=== PATIENT | male | born 1945 | race Caucasian/White ===

== ENCOUNTER → 2016-09-23 14:53 | Outpatient (CLI) | payer MEDICARE ==
[2010-04-09 11:32] VITALS: BMI 32.6
== END | disposition home or self-care (01) ==
LOC: D.CT 14:53
DX: R09.89 Other specified symptoms and signs involving the circulatory and respiratory systems (principal)

== ENCOUNTER 2017-03-27 10:33 | Outpatient (CLI) | payer MEDICARE ==
[~2017-03-27] VITALS: Ht 179.1 cm; Wt 109.5 kg
--- NOTE | ~2017-03-27 | HEMODYNAMI ---
PATIENT:ISIS VALE MEDICAL RECORD: [id number] : 41 LOCATION:[facility] ADMISSION DATE: 03/27/17 Generatedon:03/27/201714:17 Patient name: ISIS VALE Patient #: [id number] SSN: : 1945 Date of study: 03/27/2017 Page: Of Hemodynamic Procedure Report Patient Data Patient Demographics Procedure consent was obtained First Name: ISIS Gender: Male Last Name: KAVIN : 1945 [facility] Initial: AARON Age: 72 year(s) Patient #: [id number] Race: Unknown Additional ID: [id number] Contact details Address: [address] [place] [address] State: [place] City: [facility] Zip code: [address] Admission Admission Data Admission Date: 03/27/2017 Admission Time: 10:33 Lab Results Lab Result Date: 03/27/2017 Lab Result Time: 0:00 Biochemistry Name Units Result Min Max BUN mg/dl 19 --(----)*- 7 18 Creatinine mg/dl 1.3 --(---*)-- 0.6 1.3 CBC Name Units Result Min Max Hemoglobin g/dl 15.2 --(-*--)-- 13.5 17.5 Procedure Procedure Types Cath Procedure Diagnostic Procedure LHC C w/Coronaries w/Grafts PCI Procedure PTCA PTCA Initial Miscellaneous Procedures Moderate Sedation up to 45 minutes Procedure Description Procedure Date Procedure Date: 03/27/2017 Procedure Start Time: 13:07 Procedure End Time: 14:13 Procedure Staff Name Function Maxwell Jewell RT Monitor Braulio Altamirano MD Performing Physician Waqas Roberts RN Nurse Linda Merlos RT Scrub Procedure Data Cath Procedure Fluoroscopy Diagnostic fluoroscopy Total fluoroscopy Time: time: 19.4 min 19.4 min Diagnostic fluoroscopy Total fluoroscopy dose: dose: 3332 mGy 3332 mGy Contrast Material Contrast Material Type Amount (ml) Isovue 300 216 Entry Location Entry Primary Successful Side Size Upsize Upsize Entry Closure Succes sful Closure Location (Fr) 1 (Fr) 2 (Fr) Remarks Device Remarks Femoral Right 5 Fr 6 Fr Exoseal artery Short Estimated blood loss: 10 ml Diagnostic catheters Device Type Used For End Catheter Placement MULTIPACK JL 4.0 5Fr Procedure catheter MULTIPACK 3DRC 5Fr Procedure catheter MULTIPACK Pigtail 5 Fr Procedure catheter Procedure Complications No complications Procedure Medications Medication Administration Route Dosage 0.9% NaCl I.V. 100 ml/hr Oxygen NC 2 l/min Heparin Flush Bag added to field 2 bags (1000units/500ml NS) Lidocaine 2% added to field 20 Versed I.V. 1 mg Fentanyl I.V. 50 mcg Benadryl I.V. 50 mg Heparin Bolus I.V. 5000 units Integrilin (Bolus I.V. 10.2 ml 2mg/ml) Integrilin (Bolus wasted 9.8 ml 2mg/ml) Versed I.V. 1 mg Fentanyl I.V. 50 mcg Hemodynamics Rest HGB: 15.2 (g/dl) Heart Rate: 65 (bpm) Pressure Samples Time Site Value (mmHg) Purpose Heart Use Rate(bpm) 13:15 LV 168/21,38 Snapshot 64 13:16 AO 164/74(112) Pullback 64 13:29 AO 155/77(108) Snapshot 64 Gradients Valve Time Site Site 2 Mean SEP/DFP Peak To Heart Use 1 (mmHg) (sec/min) Peak Rate (mmHg) (bpm) Aortic 13:16 LV AO 6 19 64 164/74(112) Calculations Valve P-P Mean Valve Index Valve Source Name Gradient Area Flow (cm2) Aortic 6 6 Snapshots Pre Cath Intra NCS Post Cath Vital Signs Time Heart Resp SPO2 etCO2 NIBP (mmHg) Rhythm Pain Sedation Rate (ipm) (%) (mmHg) Status Level (bpm) 12:55:58 61 13 96 0 173/83(135) NSR 0 (11) 10(A) , No pain 13:00:51 63 16 98 34.5 161/82(117) NSR 0 (11) 10(A) , No pain 13:05:40 62 15 99 38.3 156/74(123) NSR 0 (11) 10(A) , No pain 13:10:31 62 13 100 19.5 166/80(121) NSR 0 (11) 9(A) , No pain 13:15:21 63 13 99 36 163/75(112) NSR 0 (11) 9(A) , No pain 13:20:12 63 14 100 33.8 160/75(131) NSR 0 (11) 9(A) , No pain 13:25:01 64 13 100 36 159/82(130) NSR 0 (11) 9(A) , No pain 13:29:54 64 13 99 0 157/79(124) NSR 0 (11) 9(A) , No pain 13:34:45 61 21 99 0 160/79(126) NSR 0 (11) 9(A) , No pain 13:39:38 60 15 99 36.8 159/78(129) NSR 0 (11) 9(A) , No pain 13:44:29 60 14 99 36.8 166/75(120) NSR 0 (11) 9(A) , No pain 13:49:19 60 15 99 36.8 162/82(125) NSR 0 (11) 9(A) , No pain 13:54:13 62 12 99 27 168/79(133) NSR 0 (11) 10(A) , No pain 13:59:03 60 12 99 33.8 165/80(136) NSR 0 (11) 10(A) , No pain 14:03:54 64 11 100 36.8 171/85(142) NSR 0 (11) 10(A) , No pain 14:08:39 65 15 99 37.6 155/87(132) NSR 0 (11) 10(A) , No pain Medications Time Medication Route Dose Verified Delivered Reason Notes Effectiveness by by 12:54:08 0.9% NaCl I.V. 100 Waqas Waqas Per physician ml/hr Armando Roberts RN RN 12:54:23 Oxygen NC 2 Waqas Waqas Per physician l/min Armando Roberts RN RN 12:54:37 Heparin Flush added 2 Waqas Waqas used for Bag to bags Armando Roberts procedure (1000units/500ml field ERLINDA COFFEY NS) 12:54:48 Lidocaine 2% added 20ml Waqas Waqas for local to vial Armando Roberts anesthetic field ERLINDA COFFEY 12:59:50 Versed I.V. 1 mg Waqas Waqas for sedation Armando Roberts RN RN 13:00:02 Fentanyl I.V. 50 Waqas Waqas for sedation mcg Armando Roberts RN RN 13:00:12 Benadryl I.V. 50 mg Waqas Waqas Per physician Armando Roberts RN RN 13:21:35 Heparin Bolus I.V. 5000 Waqas Waqas for units Armando Roberts anticoagulation RN RN 13:21:53 Integrilin I.V. 10.2 Waqas Waqas for (Bolus 2mg/ml) ml Armando Roberts antiplatelet RN RN therapy 13:22:13 Integrilin wasted 9.8 Waqas Waqas to sharp's (Bolus 2mg/ml) ml Armando Roberts RN RN 13:23:33 Versed I.V. 1 mg Waqas Waqas for sedation Armando Roberts RN, RN 13:23:40 Fentanyl I.V. 50 Waqas Waqas for sedation mcg Armando Roberts RN circular shear operator Log Time Note 12:19:37 Time tracking: Regular hours 12:19:46 Plan of Care:Hemodynamics will remain stable., Cardiac rhythm will remain stable., Comfort level will be maintained., Respiratory function will remain adequate., Patient/ family verbilizes understanding of procedure., Procedure tolerated without complication., Recovers from procedure without complications.. 12:19:50 Signed procedure consent form obtained from patient. 12:20:05 H&P Date Dictated: 03/24/2017 Within 30 days and on chart., H&P Addendum completed by physician on day of procedure. (MUST COMPLETE FOR ALL OUTPATIENTS). 12:20:37 Lab Result : Hemoglobin 15.2 g/dl 12:20:37 Lab Result : Creatinine 1.3 mg/dl 12:20:37 Lab Result : BUN 19 mg/dl 12:38:02 Waqas Roberts RN sent for patient. Start room use. 12:43:16 Patient received from Pre/Post Procedure Room to CCL 1 Alert and oriented. Tansferred to table in Supine position. 12:43:18 Warm blankets applied, and lg hugger turned on for patient comfort. 12:43:19 Correct patient and procedure confirmed by team. 12:43:21 ECG and BP/O2 sat monitors applied to patient. 12:54:08 0.9% NaCl 100 ml/hr I.V. was administered by Waqas Lorigan RN; Per physician; 12:54:23 Oxygen 2 l/min NC was administered by Waqas Roberts RN; Per physician; 12:54:37 Heparin Flush Bag (1000units/500ml NS) 2 bags added to field was administered by Waqas Roberts RN; used for procedure; 12:54:48 Lidocaine 2% 20ml vial added to field was administered by Waqas Roberts RN; for local anesthetic; 12:54:53 Vital chart was started 12:55:41 Baseline sample Acquired. 12:55:48 Rhythm: sinus rhythm 12:55:51 Full Disclosure recording started 12:55:53 Pre-op teaching completed and patient verbalized understanding. 12:55:53 Pre-procedure instructions explained to patient. 12:55:58 Family in patients room. 12:55:59 Patient NPO since Midnight. 12:56:01 Is the patient allergic to Iodine/contrast media? No. 12:56:04 Is patient on blood thinner?Yes 12:56:07 ACC The patient was administered the following blood thiners within the last 24 hours: ACCPlavix 12:57:19 Previous problem with sedation/anesthesia? No ? 12:57:20 Snore? Yes 12:57:22 Sleep apnea? No 12:57:23 Opens mouth fully? Yes 12:57:23 Deviated septum? No 12:57:28 Patient diabetic? Yes. 12:57:29 If diabetic: On Metformin? Yes 12:57:34 If on Metformin: Last Dose? 03/26/2017 12:57:38 Sticks out tongue? Yes 12:57:40 Airway obstruction? No ? 12:57:43 Dentures? No ? 12:57:46 Pre procedure: right dorsailis pedis pulse 1+ Palpable, but thready & weak; easily obliterated 12:57:48 Patient pain scale 0/10 ?. 12:58:08 IV patent on arrival in left forearm with 0.9% NaCl at [facility]. 12:58:10 Lab results completed and on chart. 12:58:14 Right groin area was prepped with chlora-prep and draped in sterile fashion 12:58:16 Alarms reviewed by R. N. 12:58:17 Sharps counted by scrub and verified by R.N. 12:58:38 Use device set Femoral Dx 12:58:40 Tegaderm 4 x 4 (1626W) opened to sterile field. 12:58:41 ACIST Manifold (62480) opened to sterile field. 12:58:41 ACIST Hand Control (11158) opened to sterile field. 12:58:43 Bag Decanter (2002S) opened to sterile field. 12:58:43 ACIST Syringe (47890) opened to sterile field. 12:58:44 SHEATH 5FR [place] (ASB737) opened to sterile field. 12:58:44 Medline Cath Pack ([id number]) opened to sterile field. 12:58:45 DIAGNOSTIC WIRE .035 260cm J wire (093315) opened to sterile field. 12:58:46 DIAGNOSTIC Multipack 5Fr catheter set (GZ2883) opened to sterile field. 12:58:48 PERCUTANEOUS ENTRY 19GA needle opened to sterile field. 12:59:01 Final Timeout: patient, procedure, and site verified with staff and physician. All members of the team are in agreement. 12:59:01 --------ALL STOP TIME OUT------ 12:59:04 Right groin site verified by team. 12:59:06 Physical assessment completed. ASA score P 2 - A patient with mild systemic disease as per Braulio Altamirano MD. 12:59:08 Sedation plan: IV Moderate Sedation Medication:Versed, Fentanyl 12:59:50 Versed 1 mg I.V. was administered by Waqas Roberts RN; for sedation; 13:00:02 Fentanyl 50 mcg I.V. was administered by Waqas Roberts RN; for sedation; 13:00:12 Benadryl 50 mg I.V. was administered by Waqas Roberts RN; Per physician; 13:06:56 Procedure started. 13:07:05 Local anesthetic to right femoral artery with Lidocaine 2% by Braulio Altamirano MD.INITIAL ACCESS ONLY 13:08:01 A 5 Fr sheath was inserted into the Right Femoral artery 13:09:06 A MULTIPACK JL 4.0 5Fr catheter was advanced over the wire and used for Procedure. 13:09:39 LCA angiography performed. 13:11:23 Catheter removed. 13:11:29 A MULTIPACK 3DRC 5Fr catheter was advanced over the wire and used for Procedure. 13:12:16 RCA angiography performed. 13:13:11 SVG to Diag angiography performed. 13:13:44 HANSEN to LAD angiography performed. 13:14:14 SVG to Circ occluded. 13:14:16 Catheter removed. 13:14:21 A MULTIPACK Pigtail 5 Fr catheter was advanced over the wire and used for Procedure. 13:15:35 LV angiography performed. 13:15:36 LV gram done using YOUNG 13:15:48 EF : 40 % 13:15:53 LV hemodynamics recorded. 13:15:57 Injector settings: Ml/sec: 10, Volume: 20, 13:15:58 Catheter removed. 13:16:05 Use device set Flock PCI 13:16:12 INFLATOR Merit BasixCompak (BJ0213) opened to sterile field. 13:16:14 SHEATH 6FR [place] (ZDR076) opened to sterile field. 13:16:19 WHISPER 300cm guide wire ([id number]) opened to sterile field. 13:16:26 GUIDE 6FR EBU 3.5 catheter ([id number]) opened to sterile field. 13:17:14 Sheath upsized to a 6 Fr Short. 13:17:26 Study PCI Site: [place] mCirc has 90% stenosis. 13:17:28 ACC Pre-intervention IDANIA Flow is 3. 13:18:37 6 Fr EBU 3.5 guide catheter was inserted over the wire 13:20:03 Whisper wire advanced. 13:21:35 Heparin Bolus 5000 units I.V. was administered by Waqas Roberts RN; for anticoagulation; 13:21:53 Integrilin (Bolus 2mg/ml) 10.2 ml I.V. was administered by Waqas Roberts RN; for antiplatelet therapy; 13:22:13 Integrilin (Bolus 2mg/ml) 9.8 ml wasted was administered by Waqas Roberts RN; to sharp's; 13:22:17 Wire advanced across lesion. 13:23:33 Versed 1 mg I.V. was administered by Waqas Roberts RN; for sedation; 13:23:40 Fentanyl 50 mcg I.V. was administered by Waqas Roberts RN; for sedation; 13:25:03 The EUPHORA 3.0 x 15 Balloon ([id number]) was advanced and then removed because of failure to cross lesion 13:28:36 [place]undy 1.5x15 balloon advanced across lesion. Wire exchanged for Choice PT XS. 13:28:47 CHOICE PT Extra Support J 300cm guide wire ([id number]) opened to sterile field. 13:29:09 Inflation number: 1 A MAVERICK 1.5 X 15 balloon ([id number]) was prepped and advanced across the Mid CX, then inflated to 10 DONI for 0:10 (min:sec). 13:29:37 Multiple inflations made at 10 Atms. 13:31:58 Multiple inflations made at 14 Atms. 13:33:02 Balloon removed over the wire. 13:37:23 The EUPHORA 3.0 x 15 Balloon ([id number]) was advanced and then removed because of failure to cross lesion 13:42:50 The EMERGE OTW 2.5 x 15 balloon ([id number]) was advanced and then removed because of failure to cross lesion 13:42:52 Guide catheter removed. 13:42:52 Wire removed. 13:43:12 GUIDE 6FR EBU 4.0 guide catheter ([id number]) opened to sterile field. 13:43:30 6 Fr EBU 4 guide catheter was inserted over the wire 13:43:55 Whisper wire advanced. 13:48:53 Wire advanced across lesion. 13:49:28 Inflation number: 2 A EUPHORA 3.0 x 15 Balloon ([id number]) was prepped and advanced across the Mid CX, then inflated to 12 DONI for 0:10 (min:sec). 13:51:30 Wire exchanged for Choice PT XS. 13:51:32 CHOICE PT Extra Support J 300cm guide wire ([id number]) opened to sterile field. 13:51:55 Inflation number: 3 The EUPHORA 3.0 x 15 Balloon ([id number]) was reinflated across the Mid CX, to 12 DONI for 0:10 (min:sec). 13:52:47 Multiple inflations made at 10 Atms. 13:54:06 Balloon removed over the wire. 13:57:36 The ZORAN OTW 3.5 x 15 stent ([id number]) was advanced then removed because of failure to cross lesion 13:58:47 Wire removed. 13:58:48 Guide catheter removed. 13:58:49 EXOSEAL 6Fr (EX600) opened to sterile field. 13:59:12 ACC Post-intervention IDANIA Flow is 3. 13:59:27 Sheath removed intact; hemostasis achieved with Exoseal to the Right Femoral artery. 14:00:01 Procedure ended.(Physican Out) 14:00:18 Fluoroscopy time 19.40 minutes. 14:00:23 Fluoroscopy dose: 3332 mGy 14:00:23 Flurop Dose total: 3332 14:00:27 Contrast amount:Isovue 300 216ml. 14:00:30 Sharps counted by scrub and verified by R.N. 14:00:50 Post right femoral artery:stable, hematoma 14:01:01 FEMSTOP Gold (S81348) opened to sterile field. 14:01:13 Femstop placed over the right femoral artery at 185 mmHg. Hemostasis achieved. 14:08:24 Post Procedure Pulses reassessed and unchanged 14:08:27 Post-procedure physical assessment completed. ASA score P 2 - A patient with mild systemic disease as per Braulio Altamirano MD. 14:08:29 Post procedure rhythm: unchanged. 14:08:32 Estimated blood loss: 10 ml 14:08:34 Post procedure instruction explained to patient.Patient verbalizes understanding. 14:08:35 Patient needs reinforcement of post procedure teaching. 14:09:58 Procedure type changed to Cath procedure, Diagnostic procedure, LHC, LHC w/Coronaries w/Grafts, PCI procedure, PTCA, PTCA Initial, Miscellaneous Procedures, Moderate Sedation up to 45 minutes 14:10:42 Procedure and supply charges have been captured, reviewed, submitted and are correct. 14:10:46 Procedure Complication : No complications 14:13:03 Vital chart was stopped 14:13:04 See physician's report for complete and final results. 14:13:05 Report given to Pre/Post Procedure Room. 14:13:09 Patient transfered to Pre/Post Procedure Room with Stretcher. 14:13:11 Full Disclosure recording stopped 14:13:11 Procedure ended. 14:13:15 End room use (Document Last) Intervention Summary Intervention Notes Time ActionType Lesion and Equipment Action# Pressure Duration Attributes Used 13:25:03 Discard EUPHORA 3.0 x Balloon 15 Balloon ([id number]) 13:29:09 Inflate Mid CX MAVERICK 1.5 1 10 00:10 balloon X 15 balloon ([id number]) 13:37:23 Discard EUPHORA 3.0 x Balloon 15 Balloon ([id number]) 13:42:50 Discard EMERGE OTW Balloon 2.5 x 15 balloon ([id number]) 13:49:28 Inflate Mid CX EUPHORA 3.0 x 2 12 00:10 balloon 15 Balloon ([id number]) 13:51:55 Reinflate Mid CX EUPHORA 3.0 x 3 12 00:10 balloon 15 Balloon ([id number]) 13:57:36 Discard ZORAN OTW 3.5 Stent x 15 stent ([id number]) Device Usage Item Name Manufacture Quantity Catalog Number Hospital Part Current M inimal Lot# / Charge Number Stock Stock Serial# Code Tegaderm 4 x 3M 1 1626W 042531 845271 353154 5 4 (1626W) ACIST Hand Acist 1 68987 843280 591617 393337 5 Control Medical (56783) Systems Inc ACIST Acist 1 15513 981212 989289 356552 5 Manifold Medical (93617) Systems Inc ACIST Syringe Acist 1 62815 986656 029973 230029 2 0 (50399) Medical Systems Inc Bag Decanter Microtek 1 2001S 247121 88545 802092 5 (2001S) Medical Inc. Medline Cath Cardinal 1 [id number] 329121 94947 654795 5 Pack Health ([id number]) SHEATH 5FR Terumo 1 SCV392 563791 876912 203394 4 0 [place] (ARM011) DIAGNOSTIC St Claudy 1 253034 200031 392817 437993 3 0 WIRE .035 260cm J wire (849925) DIAGNOSTIC Cardinal 1 OO6306 270849 28349 612517 3 0 Multipack 5Fr Health catheter set (EW5721) PERCUTANEOUS Cook Medical 1 L37727 283035 237031 5 ENTRY 19GA needle MULTIPACK JL Cardinal 1 470032 5 4.0 5Fr Health catheter MULTIPACK Cardinal 1 732837 5 3DRC 5Fr Health catheter MULTIPACK Cardinal 1 903464 5 Pigtail 5 Fr Health catheter INFLATOR Merit 1 SJ6471 866344 762493 656697 [address] [employer] Medical BasixCompak (RP3106) SHEATH 6FR Terumo 1 SNU478 223944 129925 276254 4 0 [place] (NSL736) WHISPER 300cm Lacey 1 [id number] 757545 712500 959734 5 guide wire Vascular ([id number]) GUIDE 6FR EBU Medtronic 1 VO0JGF87 579199 87911 131213 3 3.5 catheter ([id number]) EUPHORA 3.0 x Medtronic 1 [id number] 689273 811894 162336 5 [id number] 15 Balloon ([id number]) CHOICE PT Wilberforce 2 [id number] 359342 219706 038080 5 Extra Support Scientific J 300cm guide wire (4662947M9) MAVERICK 1.5 Wilberforce 1 [id number] 474057 742020 390091 1 [id number] X 15 balloon Scientific ([id number]) EMERGE OTW Wilberforce 1 [id number] 369075 114112 512870 5 [id number] 2.5 x 15 Scientific balloon ([id number]) GUIDE 6FR EBU Medtronic 1 NJ2FLT65 574219 46655 079934 1 4.0 guide catheter (QF6AMX02) ZORAN OTW 3.5 Medtronic 1 [id number] 275560 9884457 396998 5 [id number] x 15 stent ([id number]) EXOSEAL 6Fr Cardinal 1 EX600 308138 763180 397855 1 0 (EX600) Health FEMSTOP Gold St Claudy 1 C39855 944957 026385 425555 5 (Q18077) Signature Audit [place] Stage Time Signature Unsigned Intra-Procedure 03/27/2017 Maxwell Jewell RT(R) 2:13:37 PM RT(R) 03/27/2017 2:16:40 PM Intra-Procedure 03/27/2017 Maxwell Jewell 2:17:41 PM RT(R) Signatures Monitor : Maxwell Jewell RT Signature : Date : Time : [facility] [address] [place] [address]
--- NOTE | ~2017-03-27 | OP ---
PATIENT NAME: ISIS VALE MEDICAL RECORD: [id number] :41 LOCATION:D.M2 D.2115 ADMISSION DATE: SURGEON: LAKISHA GALVEZ MD DATE OF OPERATION: 03/27/2017 PROCEDURE: Left heart catheterization, selective coronary angiography, right after femoral artery approach. CATHETERS: A 5-Bolivian sheath, 5/4 left and right Aleksander, 5/4 pig. The procedure was well tolerated. We proceeded to PTCA circumflex. FINDINGS: Left ventriculography in the 30-degree YOUNG view shows mild global LV hypokinesis. Overall, function reduced at 35% to 40%. CORONARY ANATOMY: LEFT MAIN: Left main is free of disease. LAD: LAD fills for a short period of time, is seen filling via competitive flow. CIRCUMFLEX: Has a basically subtotaled stenosis in its mid portion, high calcific area. RIGHT CORONARY ARTERY: Totally occluded and fills via left to right collaterals. HANSEN to LAD is widely patent throughout its course without evidence of post-anastomotic stenosis and gives rise to collaterals to the right. Saphenous vein graft to diagonal is widely patent throughout its course without evidence of post-anastomotic stenosis. PLAN: PTCA stenting of the circumflex momentarily. DESCRIPTION OF PROCEDURE: After a 5-Bolivian sheath was changed for a 6-Bolivian sheath, an EBU finally a 4 guiding catheter provided good catheter support. We were able to place a Whisper wire across the subtotal circumflex down to this portion of this vessel. Initial balloon inflations were performed with a 1.5 balloon. Then, using the 1.5 balloon, we used this at the balloon itself with an exchange catheter and placed a PT export wire. We ballooned up and down the circumflex with a 3.0 x 15 mm [place] balloon up to 12 atmospheres. This showed still 20% residual of the original lesion; however, due to tortuosity and previously calcific areas we were unable to deploy the stent. IMPRESSION: Successful PTCA of the circumflex, unable to deploy the stent. Heparin was used during procedure as well as Integrilin. Sheath closed mainly with FemoStop device. TRANSINT:[id number] Voice Confirmation ID: [id number] DOCUMENT ID: [id number] OPERATIVE REPORT [id number] ISIS VALE LAKISHA HUANG MD at 0950 CC: [id number] DICTATION DATE: 03/27/17 1404 LOGGER ALL ROUND: 03/27/17 1457 [address] [place] [address]
[2017-03-27] MEDS ORDERED: PLAVIX75 MG PO (10:51)
[2017-03-27] MEDS ORDERED: COREG25 MG PO (10:51)
[2017-03-27] MEDS ORDERED: LIPITOR20 MG PO (10:51)
[2017-03-27] MEDS ORDERED: TOPROL XL100 MG PO (10:51)
[2017-03-27] MEDS ORDERED: GLUCOPHAGE500 MG PO (10:52)
[2017-03-27] MEDS ORDERED: LOTREL 10/20 CA1 CAP PO (10:52)
[2017-03-27] MEDS ORDERED: GLIMEPIRIDE2 MG PO (10:53)
[2017-03-27] MEDS ORDERED: LANTUS INSULIN10 ML SC (10:53)
[2017-03-27] MEDS ORDERED: ASPIRIN325 MG PO (10:54)
[2017-03-27] MEDS ORDERED: VITAMIN B-12500 MC1 PO (10:54)
[2017-03-27] MEDS ORDERED: CENTRUM MEN'S1 EACH PO (10:54)
[2017-03-27 10:56] VITALS: BP 159/76; BMI 34.1
[2017-03-27 11:11] LABS: BASOPHILS 0.3 % (0-2); HEMATOCRIT 44.3 % (42.0-54.0); HEMOGLOBIN 15.2 g/dL (13.5-17.5); IMMATURE GRANULOCYTES 0.2 % (0-5); LYMPHOCYTES 26.8 % (15-50); MCHC 34.3 g/dL (31.0-37.0); MCV 90.4 fL (80.0-100.0); MEAN PLATELET VOLUME 10.7 fL (7.4-10.4); MONOCYTES 10.8 % (2-11); NEUTROPHILS 58.9 % (40-80); PLATELET COUNT 202 10x3/uL (130-400); RDW 12.8 % (11.5-14.5)
[2017-03-27 11:23] LABS: ANION GAP 12.7 mmol/L (8-16); CALCIUM 8.9 mg/dL (8.5-10.1); CARBON DIOXIDE 28.8 mmol/L (21.0-32.0); CREATININE - SERUM 1.3 mg/dL (0.6-1.3); POTASSIUM - SERUM 4.5 mmol/L (3.5-5.1)
[2017-03-27 18:09] VITALS: BP 142/58; Ht 179.1 cm; Wt 109.5 kg
[2017-03-27 20:00] VITALS: BP 150/60
[2017-03-28] VITALS: BP 140/49
[2017-03-28 04:00] VITALS: BP 162/60
[2017-03-28 07:48] VITALS: BP 147/64
[2017-03-28 07:51] LABS: BASOPHILS 0.3 % (0-2); EOSINOPHILS 1.3 % (0-7); HEMATOCRIT 38.9 % (42.0-54.0); HEMOGLOBIN 12.9 g/dL (13.5-17.5); IMMATURE GRANULOCYTES 0.1 % (0-5); MCH 30.3 pg (26.0-34.0); MCHC 33.2 g/dL (31.0-37.0); MCV 91.3 fL (80.0-100.0); MEAN PLATELET VOLUME 10.7 fL (7.4-10.4); MONOCYTES 10.6 % (2-11); NEUTROPHILS 68.7 % (40-80); PLATELET COUNT 186 10x3/uL (130-400); RBC 4.26 10x6/uL (4.20-6.10); WBC 7.5 10x3/uL (4.8-10.8)
[2017-03-28 10:52] VITALS: BP 136/68
== END 2017-03-28 12:02 | disposition home or self-care (01) ==
LOC: D.CATH 10:33 → D.M2 17:43 → D.CATH 03-28 12:02
PROVIDERS: Internal Medicine Interventional Cardiology
DX: I25.119 Atherosclerotic heart disease of native coronary artery with unspecified angina pectoris (principal); Z95.1 Presence of aortocoronary bypass graft; Z01.812 Encounter for preprocedural laboratory examination

== ENCOUNTER 2017-11-06 08:47 | Inpatient (IN) | payer MEDICARE ==
[~2017-11-06] VITALS: Ht 179.1 cm; Wt 113.2 kg
--- NOTE | ~2017-11-06 | OP ---
PATIENT NAME: ISIS VALE MEDICAL RECORD: [id number] :41 LOCATION:D. D.2138 ADMISSION DATE:11/06/17 SURGEON: LAKISHA GALVEZ MD DATE OF OPERATION: 11/07/2017 PROCEDURE: Left heart catheterization, selective coronary angiography, plus PTCA to the circumflex plus lower extremity runoff. Right femoral artery approach, a 7-Luxembourger sheath was used. FINDINGS: Left ventriculography in 30-degree YOUNG view shows inferior basilar hypokinesis. Overall, LV function reduced area of 40%. CORONARY ANATOMY: LEFT MAIN: Left main is free of disease. LAD: Fills for a short period of time and I think can be seen via competitive flow via the HANSEN. CIRCUMFLEX: Area of previous balloon is subtotally occluded. RIGHT CORONARY ARTERY: As previous, is totally occluded, fills via left to right collaterals. Saphenous vein graft to the diagonal is widely patent throughout its course without post-anastomotic stenosis in the LAD and is widely throughout its course without post-anastomotic stenosis. IMPRESSION: Infarct related artery probably circumflex. PLAN: Intervention momentarily. DESCRIPTION OF PROCEDURE: Using the indwelling 7-Luxembourger sheath, an EBU 4 guiding catheter provided good catheter support followed by a 300-cm initially used a Whisper wire across the tightly occluded vessel. Pre-deployment of the balloon was a 2.5 x 15 mm balloon, we also used this as an exchange catheter. We were able to balloon up and down the vessel with a 20% residual. Attempts at stent placement including attempts at niki wire; however, we were unable to cross the area of stenosis with a stent. IMPRESSION: 1. Status post PTCA to the circumflex, but unsuccessful stenting. 2. The pigtail catheter was pulled to the level of the renal arteries, abdominal aorta shows no aneurysmal dilatation, minimal atherosclerotic debris. LEFT SYSTEM: 1. Left iliac system, free of disease. 2. Left femoral system: The left superficial femoral shows a tight stenosis at the takeoff of the deep femoral as well as distally, it is just a quarter with 2-vessel runoff distally. RIGHT SYSTEM: 1. Right iliac system is free of disease. 2. Right femoral system: Right superficial femoral in its distal portion has about 80% stenosis. There is also distally before the bifurcation shows the stenosis of probably 90% popliteal. IMPRESSION: Severe peripheral disease as described above. TRANSINT:[id number] Voice Confirmation ID: [id number] DOCUMENT ID: [id number] OPERATIVE REPORT [id number] ISIS VALE,LAKISHA Montez MD at 1314 CC: [id number] DICTATION DATE: 11/07/17 1140 SOURCING MANAGER: 11/07/17 1205 DIS IN 11/12/17 [address] [place] [address]
--- NOTE | ~2017-11-06 | HEMODYNAMI ---
PATIENT:ISIS VALE MEDICAL RECORD: [id number] : 41 LOCATION:[address] [facility]# [id number] ADMISSION DATE: 11/06/17 Generatedon:11/07/201711:41 Patient name: ISIS VALE Patient #: [id number] SSN: : 1945 Date of study: 11/07/2017 Page: Of Hemodynamic Procedure Report Patient Data Patient Demographics Procedure consent was obtained First Name: ISIS Gender: Male Last Name: KAVIN : 1945 [facility] Initial: AARON Age: 72 year(s) Patient #: [id number] Race: Unknown Additional ID: [id number] Contact details Address: [address] [place] [address] State: [place] City: [facility] Zip code: [address] Past Medical History Allergies: No known allergies Admission Admission Data Admission Date: 11/06/2017 Admission Time: 12:39 Room #: D2138 Lab Results Lab Result Date: 11/07/2017 Lab Result Time: 6:16 Biochemistry Name Units Result Min Max BUN mg/dl 24 --(----)-* 7 18 Creatinine mg/dl 1.4 --(----)*- 0.6 1.3 CBC Name Units Result Min Max Hematocrit % 40.4 -*(----)-- 42 54 Hemoglobin g/dl 13.9 --(*---)-- 13.5 17.5 Procedure Procedure Types Cath Procedure Diagnostic Procedure LHC LHC w/Coronaries w/Grafts Sedation Charges Moderate Sedation up to 30 minutes PCI Procedure PTCA PTCA Initial Peripheral Cath Diagnostic Procedure Intake Rn Peripheral Procedures Znbeg-Afyafos-Lxk-Off Procedure Description Procedure Date Procedure Date: 11/07/2017 Procedure Start Time: 10:55 Procedure End Time: 11:39 Procedure Staff Name Function Braulio Urena MD Performing Physician Linda Merlos RT Monitor Waqas Roberts RN Nurse Yani Araiza RT Scrub Procedure Data Cath Procedure Fluoroscopy Diagnostic fluoroscopy Total fluoroscopy Time: time: 11.6 min 11.6 min Diagnostic fluoroscopy Total fluoroscopy dose: dose: 1864 mGy 1864 mGy Contrast Material Contrast Material Type Amount (ml) Isovue 300 161 Entry Location Entry Primary Successful Side Size Upsize Upsize Entry Closure Succes sful Closure Location (Fr) 1 (Fr) 2 (Fr) Remarks Device Remarks Femoral Right 7 Fr Exoseal artery Short Estimated blood loss: 10 ml Diagnostic catheters Device Type Used For End Catheter Placement MULTIPACK JL 4.0 5Fr Procedure catheter MULTIPACK 3DRC 5Fr Procedure catheter MULTIPACK Pigtail 5 Fr Procedure catheter Procedure Complications No complications Procedure Medications Medication Administration Route Dosage 0.9% NaCl I.V. 100 ml/hr Oxygen etCO2 Nasal cannula 4 l/min Heparin Flush Bag added to field 2 bags (1000units/500ml NS) Lidocaine 2% added to field 20 Versed I.V. 1 mg Fentanyl I.V. 50 mcg Versed I.V. 1 mg Fentanyl I.V. 50 mcg Heparin Bolus I.V. 5000 units Integrilin (Bolus I.V. 10.2 ml 2mg/ml) Integrilin (Bolus wasted 9.8 ml 2mg/ml) Plavix P.O. 600 mg Hemodynamics Rest HGB: 13.9 (g/dl) Heart Rate: 92 (bpm) Pressure Samples Time Site Value (mmHg) Purpose Heart Use Rate(bpm) 11:10 LV 130/21,35 Snapshot 80 11:10 AO 133/67(95) Pullback 80 11:10 LV 120/14,33 Pullback 80 Gradients Valve Time Site 1 Site 2 Mean SEP/DFP Peak To Heart Use (mmHg) (sec/min) Peak Rate (mmHg) (bpm) Aortic 11:10 LV AO 0 4 0 80 120/14,33 133/67(95) Calculations Valve P-P Mean Valve Index Valve Source Name Gradient Area Flow (cm2) Aortic 0 0 0 0 Snapshots Pre Cath Intra NCS Post Cath Vital Signs Time Heart Resp SPO2 etCO2 NIBP (mmHg) Rhythm Pain Sedation Rate (ipm) (%) (mmHg) Status Level (bpm) 10:23:06 91 29 91 24.8 166/87(125) NSR 0 (11) 9(A) , No pain 10:27:59 89 21 91 28.6 160/77(121) NSR 0 (11) 9(A) , No pain 10:32:50 84 19 90 12 141/74(106) NSR 0 (11) 9(A) , No pain 10:37:41 82 20 91 29.3 135/72(95) NSR 0 (11) 9(A) , No pain 10:42:30 80 18 91 15 139/78(94) NSR 0 (11) 9(A) , No pain 10:47:19 79 18 91 21 135/79(99) NSR 0 (11) 9(A) , No pain 10:52:08 79 18 92 21 145/77(109) NSR 0 (11) 9(A) , No pain 10:56:58 81 25 92 27.8 149/79(111) NSR 0 (11) 9(A) , No pain 11:01:49 81 18 90 17.3 136/74(107) NSR 0 (11) 9(A) , No pain 11:06:38 80 18 91 17.3 143/74(107) NSR 0 (11) 9(A) , No pain 11:11:29 79 18 91 24.8 141/67(108) NSR 0 (11) 9(A) , No pain 11:16:18 80 24 90 25.6 139/80(109) NSR 0 (11) 9(A) , No pain 11:21:06 82 26 87 24.8 146/84(119) NSR 0 (11) 9(A) , No pain 11:25:57 80 20 89 29.3 146/81(111) NSR 0 (11) 9(A) , No pain 11:30:46 79 19 90 29.3 143/73(112) NSR 0 (11) 9(A) , No pain 11:35:35 80 18 92 28.6 138/76(99) NSR 0 (11) 9(A) , No pain 11:40:24 80 20 93 25.5 146/81(109) NSR 0 (11) 9(A) , No pain Medications Time Medication Route Dose Verified Delivered Reason Notes Effectiveness by by 10:24:46 0.9% NaCl I.V. 100 Waqas Waqas Per physician ml/hr Armando Roberts RN RN 10:24:59 Oxygen etCO2 4 Waqas Waqas Per physician Nasal l/min Armando Roberts cannula RN RN 10:25:09 Heparin Flush added 2 Waqas Waqas used for Bag to bags Armando Roberts procedure (1000units/500ml RN RN NS) 10:25:20 Lidocaine 2% added 20ml Waqas Waqas for local to vial Lortravon Roberts anesthetic field RN RN 10:51:57 Versed I.V. 1 mg Waqas Waqas for sedation Armando Roberts RN RN 10:52:07 Fentanyl I.V. 50 Waqas Waqas for sedation mcg Armando Roberts RN RN 10:55:51 Versed I.V. 1 mg Waqas Waqas for sedation Armando Roberts RN RN 10:55:58 Fentanyl I.V. 50 Waqas Waqas for sedation mcg Armando Roberts RN RN 11:16:36 Heparin Bolus I.V. 5000 Waqas Waqas for units Armando Roberts anticoagulation RN RN 11:18:47 Integrilin I.V. 10.2 Waqas Waqas for (Bolus 2mg/ml) ml Armando Roberts antiplatelet RN RN therapy 11:18:59 Integrilin wasted 9.8 Waqas Waqas to sharp's (Bolus 2mg/ml) ml Armando Roberts RN RN 11:34:22 Plavix P.O. 600 Waqas Waqas for mg Armando Roberts antiplatelet RN RN therapy Procedure Log Time Note 10:02:48 Time tracking: Regular hours (M-F 7:00 - 5:00) 10:02:52 Plan of Care:Hemodynamics will remain stable., Cardiac rhythm will remain stable., Comfort level will be maintained., Respiratory function will remain adequate., Patient/ family verbilizes understanding of procedure., Procedure tolerated without complication., Recovers from procedure without complications.. 10:03:58 Waqas Roberts RN sent for patient. Start room use. 10:15:35 Patient received from PCU to CCL 1 Alert and oriented. Tansferred to table in Supine position. 10:15:36 Warm blankets applied, and lg hugger turned on for patient comfort. 10:15:36 Correct patient and procedure confirmed by team. 10:15:38 Signed procedure consent form obtained from patient. 10:15:39 ECG and BP/O2 sat monitors applied to patient. 10:15:39 Full Disclosure recording started 10:18:52 Pre-procedure instructions explained to patient. 10:18:53 Pre-op teaching completed and patient verbalized understanding. 10:18:56 Family unavailable. 10:18:57 Patient NPO since Midnight. 10:19:05 Patient allergic to No known allergies 10:19:09 Is the patient allergic to Iodine/contrast media? No. 10:19:11 Is patient on blood thinner?Yes 10:19:14 ACC The patient was administered the following blood thiners within the last 24 hours: ACCLovenox 10:19:16 Patient diabetic? Yes. 10:19:20 If diabetic: On Metformin? Yes 10:19:34 If on Metformin: Last Dose? 11/03/2017 10:19:38 Previous problem with sedation/anesthesia? No ? 10:19:39 Snore? Yes 10:19:40 Sleep apnea? No 10:19:40 Deviated septum? No 10:19:41 Opens mouth fully? Yes 10:19:42 Sticks out tongue? Yes 10:19:52 Airway obstruction? Yes Pneumonia 10:20:30 Patient pain scale 0/10 ?. 10:20:52 IV patent on arrival in left hand with 0.9% NaCl at [facility]. 10:21:31 Lab Result : Creatinine 1.4 mg/dl 10:21:31 Lab Result : BUN 24 mg/dl 10:21:31 Lab Result : Hematocrit 40.4 % 10:21:31 Lab Result : Hemoglobin 13.9 g/dl 10:21:34 Lab results completed and on chart. 10:21:36 Bilateral groins area was prepped with chlora-prep and draped in sterile fashion 10:21:37 Alarms reviewed by R. N. 10:21:38 Sharps counted by scrub and verified by R.N. 10:21:40 Use device set Femoral Dx 10:21:41 ACIST Syringe (54511) opened to sterile field. 10:21:42 Bag Decanter (2002S) opened to sterile field. 10:21:42 Medline Cath Pack ([id number]) opened to sterile field. 10:21:44 ACIST Hand Control (11098) opened to sterile field. 10:21:45 ACIST Manifold (31300) opened to sterile field. 10:21:45 Tegaderm 4 x 4 (1626W) opened to sterile field. 10:21:49 DIAGNOSTIC Multipack 5Fr catheter set (UQ1477) opened to sterile field. 10:21:50 DIAGNOSTIC WIRE .035 260cm J wire (409165) opened to sterile field. 10:22:00 Vital chart was started 10:22:01 Baseline sample Acquired. 10:22:13 Rhythm: sinus rhythm 10:24:46 0.9% NaCl 100 ml/hr I.V. was administered by Waqas Roberts RN; Per physician; 10:24:59 Oxygen 4 l/min etCO2 Nasal cannula was administered by Waqas Roberts RN; Per physician; 10:25:09 Heparin Flush Bag (1000units/500ml NS) 2 bags added to field was administered by Waqas Roberts RN; used for procedure; 10:25:20 Lidocaine 2% 20ml vial added to field was administered by Waqas Roberts RN; for local anesthetic; 10:29:44 Pre procedure: right dorsailis pedis pulse 1+ Palpable, but thready & weak; easily obliterated 10:29:46 Pre procedure: left dorsailis pedis pulse 1+ Palpable, but thready & weak; easily obliterated 10:31:18 SHEATH 7FR Ransom (PER171) opened to sterile field. 10:32:20 Use device set Multipack Set 10:37:12 Zero performed for pressure channel P1 10:51:38 --------ALL STOP TIME OUT------ 10:51:39 Final Timeout: patient, procedure, and site verified with staff and physician. All members of the team are in agreement. 10:51:42 Bilateral groins site verified by team. 10:51:45 Physical assessment completed. ASA score P 2 - A patient with mild systemic disease as per Braulio Urena MD. 10:51:48 Sedation plan: IV Moderate Sedation Medication:Versed, Fentanyl 10:51:57 Versed 1 mg I.V. was administered by Waqas Roberts RN; for sedation; 10:52:07 Fentanyl 50 mcg I.V. was administered by Waqas Roberts RN; for sedation; 10:54:53 Procedure started. 10:55:06 Local anesthetic to right femoral artery with Lidocaine 2% by Braulio Urena MD.INITIAL ACCESS ONLY 10:55:51 Versed 1 mg I.V. was administered by Waqas Roberts RN; for sedation; 10:55:58 Fentanyl 50 mcg I.V. was administered by Waqas Roberts RN; for sedation; 10:57:23 SHEATH 6FR Ransom (TYQ058) opened to sterile field. 10:58:35 Dilater of 6F attempted to used before cannulation. 10:58:38 SHEATH Prelude 5Fr 0.035 (TZN-1X-92-035) opened to sterile field. 11:00:13 Dilater of 5F attempted 11:01:[address] Claudy (221810) opened to sterile field. 11:01:47 Access obtained with 4Fr micropunture. 11:02:14 AMPLATZ Super Stiff 75cm wire ([id number]) opened to sterile field. 11:02:47 amplatz advanced 11:03:18 DIAGNOSTIC WIRE .035 260cm J wire (417411) opened to sterile field. 11:03:41 A 7 Fr Short sheath was inserted into the Right Femoral artery 11:03:57 A MULTIPACK JL 4.0 5Fr catheter was advanced over the wire and used for Procedure. 11:05:33 LCA angiography performed. 11:05:55 Catheter exchanged over wire. 11:06:06 A MULTIPACK 3DRC 5Fr catheter was advanced over the wire and used for Procedure. 11:07:02 SVG to Diag angiography performed. 11:07:52 RCA angiography performed. 11:08:11 RCA CLOSED 11:08:22 HANSEN to LAD angiography performed. 11:08:41 Catheter exchanged over wire. 11:09:15 A MULTIPACK Pigtail 5 Fr catheter was advanced over the wire and used for Procedure. 11:09:44 LV gram done using YOUNG 11:09:47 Injector settings: Ml/sec: 10, Volume: 20, 11:10:27 LV hemodynamics recorded. 11:10:37 EF : 35 % 11:11:10 PIGTAIL PULLED DOWN FOR AFRO 11:12:01 Abdominal angiogram w/ runoff was performed. 11:12:04 Left leg runoff performed. 11:13:13 Right leg runoff performed. 11:13:30 Catheter exchanged over wire. 11:14:56 GUIDE 7FR EBU 4.0 catheter (SC1LMJ76) opened to sterile field. 11:15:07 WHISPER 300cm guide wire ([id number]) opened to sterile field. 11:15:15 7 Fr EBU 4 guide catheter was inserted over the wire 11:15:38 INFLATOR Merit Tonya (HL3704) opened to sterile field. 11:16:36 Heparin Bolus 5000 units I.V. was administered by Waqas Roberts RN; for anticoagulation; 11:18:30 WHIPSER 300 wire advanced. 11:18:47 Integrilin (Bolus 2mg/ml) 10.2 ml I.V. was administered by Waqas Roberts RN; for antiplatelet therapy; 11:18:59 Integrilin (Bolus 2mg/ml) 9.8 ml wasted was administered by Waqas Roberts RN; to sharp's; 11:19:37 Wire advanced across lesion. 11:19:55 BALLON USED TO EXCHANGE FOR EXTRA SUPPORT WIRE 11:20:04 CHOICE PT Extra Support J 300cm guide wire ([id number]) opened to sterile field. 11:21:29 Inflate balloon Inflation number: 1 A EMERGE OTW 2.5 x 15 balloon ([id number]) was prepped and advanced across the Mid CX, then inflated to 12 DONI for 0:15 (min:sec). 11:22:05 Inflation number: 2 The EMERGE OTW 2.5 x 15 balloon ([id number]) was reinflated across the Mid CX, to 12 DONI for 0:15 (min:sec). 11:22:45 Inflation number: 3 The EMERGE OTW 2.5 x 15 balloon ([id number]) was reinflated across the Mid CX, to 12 DONI for 0:20 (min:sec). 11:23:42 Inflation number: 4 The EMERGE OTW 2.5 x 15 balloon ([id number]) was reinflated across the Mid CX, to 12 DONI for 0:10 (min:sec). 11:24:30 Balloon removed over the wire. 11:29:00 WHISPER 300cm guide wire ([id number]) opened to sterile field. 11:29:07 WHISPER WIRE ADVANCED NEMO WIRE 11:31:28 The INTEGRITY OTW 3.0 X 18 stent ([id number]) was advanced then removed because of failure to cross lesion 11:31:33 Stent catheter was removed intact over wire. 11:31:34 Wire removed. 11:31:35 Wire removed. 11:31:36 Guide catheter removed. 11:32:07 EXOSEAL 7Fr (EX700) opened to sterile field. 11:32:23 Sheath removed intact; hemostasis achieved with Exoseal to the Right Femoral artery. 11:32:47 Procedure ended.(Physican Out) 11:33:35 Fluoroscopy time 11.60 minutes. 11:33:46 Fluoroscopy dose: 1864 mGy 11:33:46 Flurop Dose total: 1864 11:33:51 Contrast amount:Isovue 300 161ml. 11:33:52 Sharps counted by scrub and verified by R.N. 11:34:03 Post-op/insertion site Right Femoral artery dressed using a 4 x 4 and Tegaderm. 11:34:09 Post-procedure physical assessment completed. ASA score P 2 - A patient with mild systemic disease as per Braulio Urena MD. 11:34:12 Post procedure rhythm: sinus rhythm 11:34:14 Estimated blood loss: 10 ml 11:34:22 Plavix 600 mg P.O. was administered by Waqas Roberts RN; for antiplatelet therapy; 11:34:39 Post procedure instruction explained to patient.Patient verbalizes understanding. 11:34:41 Patient needs reinforcement of post procedure teaching. 11:35:29 Procedure type changed to Cath procedure, Diagnostic procedure, LHC, LHC w/Coronaries w/Grafts, Sedation Charges, Moderate Sedation up to 30 minutes, PCI procedure, PTCA, PTCA Initial, Peripheral Cath Diagnostic Procedure, Intake Rn Peripheral Procedures, Mmezo-Cnuwhki-Ror-Off 11:39:36 Procedure and supply charges have been captured, reviewed, submitted and are correct. 11:39:38 Procedure Complication : No complications 11:39:40 Vital chart was stopped 11:39:40 See physician's report for complete and final results. 11:39:42 Report given to PCU. 11:39:45 Patient transfered to PCU with Bed. 11:39:47 Procedure ended. 11:39:47 Full Disclosure recording stopped 11:39:50 End room use (Document Last) Intervention Summary Intervention Notes Time ActionType Lesion and Equipment Action# Pressure Duration Attributes Used 11:21:29 Inflate Mid CX EMERGE OTW 1 12 00:15 balloon 2.5 x 15 balloon ([id number]) 11:22:05 Reinflate Mid CX EMERGE OTW 2 12 00:15 balloon 2.5 x 15 balloon ([id number]) 11:22:45 Reinflate Mid CX EMERGE OTW 3 12 00:20 balloon 2.5 x 15 balloon ([id number]) 11:23:42 Reinflate Mid CX EMERGE OTW 4 12 00:10 balloon 2.5 x 15 balloon ([id number]) 11:31:28 Discard INTEGRITY Stent OTW 3.0 X 18 stent ([id number]) Device Usage Item Name Manufacture Quantity Catalog Number Hospital Part Current Minimal Lot# / Charge Number Stock Stock Serial# Code ACIST Syringe Acist 1 89653 562346 491853 148238 20 (95745) Medical [employer] Inc Bag Decanter Microtek 1 2001S 955758 72342 742290 5 () Medical Inc. Medline Cath Cardinal 1 [id number] 210458 04259 282476 5 Pack Health ([id number]) ACIST Hand Acist 1 54399 853081 130745 244909 5 Control (80157) Medical Systems Inc ACIST Manifold Acist 1 38729 061511 090929 295185 5 (45085) Medical Systems Inc Tegaderm 4 x 4 3M 1 1626W 678600 650228 373692 5 (1626W) DIAGNOSTIC Cardinal 1 WH7970 210661 21119 619447 30 Multipack 5Fr Health catheter set (UW8447) DIAGNOSTIC WIRE St Claudy 2 783871 385805 210664 979180 30 .035 260cm J wire (957802) SHEATH 7FR Terumo 1 BPU154 855189 670453 034644 5 Ransom (GUV128) SHEATH 6FR Terumo 1 BYM807 278213 912885 659105 40 Ransom (PRL201) SHEATH Prelude Merit 1 MMX-2V-60-035 057248 031342 682968 5 5Fr 0.035 Medical (JZR-5Q-66-035) SHEATH 4FR St St Claudy 1 299246 702061 115736 875679 5 Claudy (106041) AMPLATZ Super Bedminster 1 [id number] 944859 000968 094297 5 Stiff 75cm wire Scientific ([id number]) MULTIPACK JL Cardinal 1 703905 5 4.0 5Fr Health catheter MULTIPACK 3DRC Cardinal 1 226702 5 5Fr catheter Health MULTIPACK Cardinal 1 324134 5 Pigtail 5 Fr Health catheter GUIDE 7FR EBU Medtronic 1 [id number] 583346 363886 471398 0 4.0 catheter (BE1IVK56) WHISPER 300cm Lacey 2 [id number] 978082 555210 099985 5 guide wire Vascular ([id number]) INFLATOR Merit Merit 1 SH5202 689670 416824 541808 15 [facility] Medical (NM0387) CHOICE PT Extra Bedminster 1 [id number] 696225 197671 159554 5 Support J 300cm Scientific guide wire ([id number]) EMERGE OTW 2.5 Bedminster 1 [id number] 594298 398573 951277 5 [id number] x 15 balloon Scientific ([id number]) INTEGRITY OTW Medtronic 1 [id number] 043238 867049 4 [id number] 3.0 X 18 stent ([id number]) EXOSEAL 7Fr Cardinal 1 EX700 634448 945607 947720 5 (EX700) Health Signature Audit Social Circle Stage Time Signature Unsigned Intra-Procedure 11/07/2017 Linda Merlos 11:41:12 AM RT(R) Signatures Monitor : Linda Merlos Signature : RT Date : Time : [address] [place] [address]
--- NOTE | ~2017-11-06 | HP ---
PATIENT: ISIS VALE MEDICAL RECORD: [id number] ACCOUNT: [id number] LOCATION:[address] : 41 ADMISSION DATE: 11/06/17 PCP: CHANDNI LIRA MD HISTORY AND PHYSICAL EXAMINATION DATE OF ADMISSION: 11/06/2017 CHIEF COMPLAINT: Shortness of breath. HISTORY OF PRESENT ILLNESS: The patient is a 72-year-old gentleman who had stated he went out to the street this morning. Upon returning, he became acutely short of breath. He presented to the Emergency Room where he was found to have pneumonia. It was felt the patient warranted admission. PAST MEDICAL HISTORY: His past history is significant in that he has had history of having peripheral vascular disease. He has also had diabetes mellitus and hyperlipidemia. He has had coronary artery bypass grafting. He has had an angioplasty in March 2017 and right shoulder rotator cuff repair. He has had trigger finger surgery on the left hand, triple bypass in 1998, and hernia repair with mesh. He has had left knee surgery and cataracts bilaterally. Also history of hypertension and BPH. FAMILY HISTORY: Mother of malignant neoplasm of the colon at age 73. Father had [place] at 58. ALLERGIES: No known drug allergies. MEDICATIONS: Include amlodipine/benazepril 10/20 one p.o. daily, aspirin 325 mg once a day, atorvastatin 20 mg once a day, carvedilol 25 mg p.o. b.i.d., gabapentin 300 mg one p.o. t.i.d., glimepiride 2 mg p.o. twice daily, Lantus SoloSTAR 25 units subcutaneously at bedtime, metformin 500 mg two tablets b.i.d., Flomax 0.4 mg once a day, and vitamin B12 5000 mcg day. SOCIAL HISTORY: The patient is retired. Educated through 12th grade. He is . The patient stopped smoking in 2010. He was a half pack per day smoker most of his adult life. Alcohol is none. REVIEW OF SYSTEMS: GENERAL: He denies any headache, seizure, or syncope. Denies change in visual or auditory acuity. PULMONARY: He does report having cough and congestion. He has had some red sputum production. He has had increasing shortness of breath with cough. He has had no fever, chills, or sweats. CARDIOVASCULAR: He has had some intermittent chest pain with pain in the left arm. He does see Dr. Altamirano for this. GASTROINTESTINAL: No chronic nausea, vomiting, melena, or hematochezia. GENITOURINARY: No urgency, frequency, or dysuria. PHYSICAL EXAMINATION: VITAL SIGNS: In the Emergency Room, the patient's temperature was 97.2, his pulse was 86, respirations 24, his blood pressure was 151/74, and his O2 sat was 92%. HEENT: His head was normocephalic. No lesions. Ears; TMs clear. Eyes; pupils are equal, round, and reactive to light. His extraocular movements were intact. His nasal cavity, oral cavity, and oropharynx were clear. HISTORY AND PHYSICAL [id number] ISIS VALE NECK: Supple. There was no adenopathy. HEART: Regular rate and rhythm. No murmurs, gallops, or rubs. LUNGS: He had decreased breath sounds in all fair. There were some rales in the right lower lung. ABDOMEN: Soft. Bowel sounds positive. He does have trace pretibial edema. LABORATORY DATA AND DIAGNOSTIC DATA: The patient had a chest x-ray. The chest x-ray revealed borderline cardiomegaly and ill-defined opacity in the right lower lung base. We felt the patient probably had pneumonia. He had glucose of 240. His CK-MB was 4.3. He had a troponin of 0.807. ABGs on room air; pH 7.429, pCO2 was 34, pO2 was 66, bicarb was 22, O2 sat was 93.5. White count was 10.3, hemoglobin was 13.9, hematocrit was 40.7, and his platelets were 180. Sodium was 138, potassium 4.2, chloride was 102, CO2 was 25.9, BUN 24, and creatinine 1.6. His proBNP was elevated at 2985. ASSESSMENT: Acute shortness of breath, felt to be secondary to CHF as well as early pneumonia, history of coronary artery bypass grafting in 1998, recent stenting in March of this year, and peripheral vascular disease. The patient did see Dr. Lira yesterday. Hypertension, hyperlipidemia, and diabetes mellitus. PLAN: The patient will be admitted. He will be placed on Rocephin 1 gram q. 24 hours and Zithromax 500 mg daily. Also started on albuterol updrafts. We will give him Lasix [address] Altamirano, his junior high school teacher. Place him on insulin sliding scale. We will continue to evaluate this. TRANSINT:[id number] Voice Confirmation ID: [id number] DOCUMENT ID: [id number] DWAYNE PÉREZ MD at 0713 CC: [id number] DICTATION DATE: 11/06/171833 ENTRY DRIVER OPERATOR: 11/06/17 1854 ADM IN [address] [place] [address]
[~2017-11-06 08:47] MED LIST: ASPIRIN325 MG PO; CENTRUM MEN'S1 EACH PO; COREG25 MG PO; GLIMEPIRIDE2 MG PO; GLUCOPHAGE500 MG PO; LANTUS INSULIN10 ML SC; LIPITOR20 MG PO; LOTREL 10/20 CA1 CAP PO; PLAVIX75 MG PO; TOPROL XL100 MG PO; VITAMIN B-12500 MC1 PO
[2017-11-06 09:15] LABS: BASOPHILS 0.2 % (0-2); EOSINOPHILS 0.4 % (0-7); HEMATOCRIT 40.7 % (42.0-54.0); HEMOGLOBIN 13.9 g/dL (13.5-17.5); IMMATURE GRANULOCYTES 0.3 % (0-5); LYMPHOCYTES 11.2 % (15-50); MCHC 34.2 g/dL (31.0-37.0); MCV 90.8 fL (80.0-100.0); MEAN PLATELET VOLUME 10.5 fL (7.4-10.4); MONOCYTES 11.4 % (2-11); NEUTROPHILS 76.5 % (40-80); PLATELET COUNT 180 10x3/uL (130-400); RBC 4.48 10x6/uL (4.20-6.10); RDW 13.2 % (11.5-14.5); WBC 10.3 10x3/uL (4.8-10.8)
[2017-11-06 09:28] LABS: ALBUMIN 3.5 g/dL (3.4-5.0); ALKALINE PHOSPHATASE 57 U/L (46-116); ALT (SGPT) 19 U/L (10-68); BILIRUBIN - TOTAL 1.04 mg/dL (0.2-1.3); CALC OSMOLALITY 284 mosm/kg (275-300); CALCIUM 9.1 mg/dL (8.5-10.1); CARBON DIOXIDE 25.9 mmol/L (21.0-32.0); CHLORIDE - SERUM 102 mmol/L (98-107); CREATININE - SERUM 1.6 mg/dL (0.6-1.3); POTASSIUM - SERUM 4.2 mmol/L (3.5-5.1); PROTEIN - SERUM 6.8 g/dL (6.4-8.2); SODIUM 138 mmol/L (136-145); UREA NITROGEN 24 mg/dL (7-18); eGFR NON AFRICAN AMERICAN 45 mL/min (90-120)
[2017-11-06 09:30] LABS: GLUCOSE 186 mg/dL (74-106)
[2017-11-06 09:45] LABS: CKMB 3.1 U/L (0.0-3.6); CREATINE KINASE 90 UL (21-232)
[2017-11-06 11:01] VITALS: BP 145/70
[2017-11-06 12:01] VITALS: BP 134/71
[2017-11-06 13:01] VITALS: BP 124/62
[2017-11-06 14:01] VITALS: BP 150/49
[2017-11-06 16:02] VITALS: BP 176/82; BMI 35.0
[2017-11-06 17:35] LABS: CKMB 4.3 U/L (0.0-3.6); CREATINE KINASE 102 UL (21-232)
[2017-11-06 17:48] LABS: TROPONIN-I 0.807 ng/mL (0.000-0.060)
[2017-11-06 20:00] VITALS: BP 131/59
[2017-11-07] VITALS: BP 161/73
[2017-11-07 00:24] LABS: CKMB 6.2 U/L (0.0-3.6); CREATINE KINASE 182 UL (21-232)
[2017-11-07 00:27] LABS: TROPONIN-I 2.601 ng/mL (0.000-0.060)
[2017-11-07 04:00] VITALS: BP 138/60
[2017-11-07 06:29] LABS: BASOPHILS 0.3 % (0-2); EOSINOPHILS 0.4 % (0-7); HEMATOCRIT 40.4 % (42.0-54.0); HEMOGLOBIN 13.9 g/dL (13.5-17.5); IMMATURE GRANULOCYTES 0.3 % (0-5); MCH 31.2 pg (26.0-34.0); MCHC 34.4 g/dL (31.0-37.0); MCV 90.6 fL (80.0-100.0); MEAN PLATELET VOLUME 11.1 fL (7.4-10.4); PLATELET COUNT 184 10x3/uL (130-400); RBC 4.46 10x6/uL (4.20-6.10); RDW 13.4 % (11.5-14.5); WBC 9.8 10x3/uL (4.8-10.8)
[2017-11-07 07:12] LABS: ALBUMIN 3.3 g/dL (3.4-5.0); ALKALINE PHOSPHATASE 52 U/L (46-116); ALT (SGPT) 20 U/L (10-68); BILIRUBIN - TOTAL 1.21 mg/dL (0.2-1.3); CALC OSMOLALITY 281 mosm/kg (275-300); CALCIUM 8.7 mg/dL (8.5-10.1); CARBON DIOXIDE 26.5 mmol/L (21.0-32.0); CHLORIDE - SERUM 101 mmol/L (98-107); CREATINE KINASE 195 UL (21-232); CREATININE - SERUM 1.4 mg/dL (0.6-1.3); GLUCOSE 166 mg/dL (74-106); POTASSIUM - SERUM 3.9 mmol/L (3.5-5.1); PRO BNP 2292 pg/mL (0-125); PROTEIN - SERUM 6.7 g/dL (6.4-8.2); SODIUM 137 mmol/L (136-145); UREA NITROGEN 24 mg/dL (7-18); eGFR NON AFRICAN AMERICAN 53 mL/min (90-120)
[2017-11-07 07:17] LABS: TROPONIN-I 3.816 ng/mL (0.000-0.060)
[2017-11-07 07:40] VITALS: BP 182/75
[2017-11-07 13:32] VITALS: Ht 179.1 cm; Wt 113.2 kg
[2017-11-07 16:02] VITALS: BP 135/81
[2017-11-07 20:00] VITALS: BP 161/68
[2017-11-08 04:00] VITALS: BP 161/82
[2017-11-08 07:16] LABS: BASOPHILS 0.2 % (0-2); EOSINOPHILS 0.3 % (0-7); HEMATOCRIT 38.4 % (42.0-54.0); HEMOGLOBIN 13.1 g/dL (13.5-17.5); IMMATURE GRANULOCYTES 0.2 % (0-5); LYMPHOCYTES 11.8 % (15-50); MCHC 34.1 g/dL (31.0-37.0); MCV 90.8 fL (80.0-100.0); MEAN PLATELET VOLUME 10.9 fL (7.4-10.4); MONOCYTES 11.1 % (2-11); NEUTROPHILS 76.4 % (40-80); PLATELET COUNT 189 10x3/uL (130-400); RBC 4.23 10x6/uL (4.20-6.10); RDW 13.5 % (11.5-14.5)
[2017-11-08 07:40] LABS: ALBUMIN 2.9 g/dL (3.4-5.0); ANION GAP 16.1 mmol/L (8-16); BILIRUBIN - TOTAL 1.27 mg/dL (0.2-1.3); CALCIUM 8.4 mg/dL (8.5-10.1); CARBON DIOXIDE 23.6 mmol/L (21.0-32.0); CREATININE - SERUM 1.1 mg/dL (0.6-1.3); POTASSIUM - SERUM 3.7 mmol/L (3.5-5.1); PROTEIN - SERUM 6.4 g/dL (6.4-8.2)
[2017-11-08 09:28] VITALS: BP 183/76
[2017-11-08 12:58] VITALS: BP 161/92
[2017-11-08 20:00] VITALS: BP 161/69
[2017-11-09 04:00] VITALS: BP 167/72
[2017-11-09 06:25] LABS: BASOPHILS 0.2 % (0-2); EOSINOPHILS 0.4 % (0-7); HEMATOCRIT 38.9 % (42.0-54.0); IMMATURE GRANULOCYTES 0.5 % (0-5); LYMPHOCYTES 12.2 % (15-50); MCH 30.4 pg (26.0-34.0); MCHC 33.4 g/dL (31.0-37.0); MCV 91.1 fL (80.0-100.0); MEAN PLATELET VOLUME 10.7 fL (7.4-10.4); NEUTROPHILS 74.7 % (40-80); PLATELET COUNT 202 10x3/uL (130-400); RBC 4.27 10x6/uL (4.20-6.10); RDW 13.5 % (11.5-14.5); WBC 11.1 10x3/uL (4.8-10.8)
[2017-11-09 07:14] LABS: BILIRUBIN - TOTAL 1.15 mg/dL (0.2-1.3); CALCIUM 8.6 mg/dL (8.5-10.1); CARBON DIOXIDE 23.8 mmol/L (21.0-32.0); CREATININE - SERUM 1.2 mg/dL (0.6-1.3); POTASSIUM - SERUM 3.8 mmol/L (3.5-5.1); PROTEIN - SERUM 6.6 g/dL (6.4-8.2)
[2017-11-09 08:20] VITALS: BP 169/76
[2017-11-09 11:36] VITALS: BP 156/72
[2017-11-09 16:19] VITALS: BP 151/64
[2017-11-09 20:30] VITALS: BP 169/73
[2017-11-09] MEDS ORDERED: ALEVE220 MG PO (21:08)
[2017-11-09] MEDS ORDERED: NEURONTIN 300300 MG PO (21:10)
[2017-11-09] MEDS ORDERED: FLOMAX0.4 MG PO (21:10)
[2017-11-10 04:30] VITALS: BP 100/73
[2017-11-10 05:41] LABS: ALBUMIN 2.6 g/dL (3.4-5.0); ANION GAP 14.1 mmol/L (8-16); BILIRUBIN - TOTAL 0.99 mg/dL (0.2-1.3); CALCIUM 8.2 mg/dL (8.5-10.1); CREATININE - SERUM 1.2 mg/dL (0.6-1.3); POTASSIUM - SERUM 4.1 mmol/L (3.5-5.1); PROTEIN - SERUM 6.3 g/dL (6.4-8.2)
[2017-11-10 08:37] LABS: BASOPHILS 0.3 % (0-2); EOSINOPHILS 1.1 % (0-7); HEMATOCRIT 36.8 % (42.0-54.0); HEMOGLOBIN 12.3 g/dL (13.5-17.5); IMMATURE GRANULOCYTES 0.3 % (0-5); LYMPHOCYTES 10.7 % (15-50); MCH 30.5 pg (26.0-34.0); MCHC 33.4 g/dL (31.0-37.0); MCV 91.3 fL (80.0-100.0); MEAN PLATELET VOLUME 10.6 fL (7.4-10.4); MONOCYTES 11.3 % (2-11); NEUTROPHILS 76.3 % (40-80); PLATELET COUNT 220 10x3/uL (130-400); RBC 4.03 10x6/uL (4.20-6.10); RDW 13.4 % (11.5-14.5); WBC 9.8 10x3/uL (4.8-10.8)
[2017-11-10 08:58] VITALS: BP 175/69
[2017-11-10 12:02] VITALS: BP 129/61
[2017-11-10 15:40] VITALS: BP 137/68
[2017-11-10 20:00] VITALS: BP 165/80
[2017-11-11 04:00] VITALS: BP 158/71
[2017-11-11 06:26] LABS: CALCIUM 8.1 mg/dL (8.5-10.1); CREATININE - SERUM 1.2 mg/dL (0.6-1.3); POTASSIUM - SERUM 4.2 mmol/L (3.5-5.1)
[2017-11-11 06:32] LABS: CARBON DIOXIDE 28.2 mmol/L (21.0-32.0)
[2017-11-11 06:52] LABS: BASOPHILS 1.2 % (0-2); EOSINOPHILS 2.9 % (0-7); HEMOGLOBIN 12.3 g/dL (13.5-17.5); IMMATURE GRANULOCYTES 0.5 % (0-5); LYMPHOCYTES 9.9 % (15-50); MCHC 34.2 g/dL (31.0-37.0); MCV 90.7 fL (80.0-100.0); MEAN PLATELET VOLUME 12.5 fL (7.4-10.4); MONOCYTES 10.9 % (2-11); NEUTROPHILS 74.6 % (40-80); PLATELET COUNT 219 10x3/uL (130-400); RBC 3.97 10x6/uL (4.20-6.10); RDW 13.5 % (11.5-14.5); WBC 8.6 10x3/uL (4.8-10.8)
[2017-11-11 08:17] VITALS: BP 153/72
[2017-11-11 11:13] VITALS: BP 169/74
[2017-11-11 16:22] VITALS: BP 137/70
[2017-11-11 20:00] VITALS: BP 173/81
[2017-11-12 04:00] VITALS: BP 141/74
[2017-11-12 04:56] LABS: BASOPHILS 0.4 % (0-2); EOSINOPHILS 6.7 % (0-7); HEMATOCRIT 34.4 % (42.0-54.0); HEMOGLOBIN 11.6 g/dL (13.5-17.5); IMMATURE GRANULOCYTES 0.1 % (0-5); LYMPHOCYTES 18.8 % (15-50); MCH 30.6 pg (26.0-34.0); MCHC 33.7 g/dL (31.0-37.0); MCV 90.8 fL (80.0-100.0); MEAN PLATELET VOLUME 10.6 fL (7.4-10.4); MONOCYTES 11.4 % (2-11); NEUTROPHILS 62.6 % (40-80); PLATELET COUNT 234 10x3/uL (130-400); RBC 3.79 10x6/uL (4.20-6.10); RDW 13.3 % (11.5-14.5); WBC 6.9 10x3/uL (4.8-10.8)
[2017-11-12 05:36] LABS: ANION GAP 12.9 mmol/L (8-16); CALCIUM 8.3 mg/dL (8.5-10.1); CARBON DIOXIDE 27.1 mmol/L (21.0-32.0); CREATININE - SERUM 1.2 mg/dL (0.6-1.3)
[2017-11-12] MEDS ORDERED: CEFUROXIME500 MG PO (06:50)
[2017-11-12] MEDS ORDERED: LASIX40 MG PO (06:50)
[2017-11-12] MEDS ORDERED: PLAVIX75 MG PO (06:50)
[2017-11-12] MEDS ORDERED: K-DUR20 MEQ PO (06:51)
[2017-11-12] MEDS ORDERED: VENTOLIN HFA18 GM INH (06:52)
[2017-11-12 09:18] VITALS: BP 141/70
== END 2017-11-12 11:35 | disposition home or self-care (01) | DRG 250 ==
LOC: D.ER 08:47 → D.EDHOLD 12:39 → D.M2 12:39
PROVIDERS: Family Medicine; Internal Medicine Interventional Cardiology
PROC: B2151ZZ Fluoroscopy of Left Heart using Low Osmolar Contrast (ICD-10-PCS; 2017-11-07)
PROC: B41J1ZZ Fluoroscopy of Other Lower Arteries using Low Osmolar Contrast (ICD-10-PCS; 2017-11-07)
PROC: 02703ZZ Dilation of Coronary Artery, One Artery, Percutaneous Approach (ICD-10-PCS; principal; 2017-11-07 10:00)
PROC: 4A023N7 Measurement of Cardiac Sampling and Pressure, Left Heart, Percutaneous Approach (ICD-10-PCS; 2017-11-07 10:00)
PROC: B2111ZZ Fluoroscopy of Multiple Coronary Arteries using Low Osmolar Contrast (ICD-10-PCS; 2017-11-07 10:00)
DX: I25.10 Atherosclerotic heart disease of native coronary artery without angina pectoris (principal); J18.9 Pneumonia, unspecified organism; I24.8 Other forms of acute ischemic heart disease; I25.82 Chronic total occlusion of coronary artery; E11.51 Type 2 diabetes mellitus with diabetic peripheral angiopathy without gangrene; E78.5 Hyperlipidemia, unspecified; I11.0 Hypertensive heart disease with heart failure; I50.9 Heart failure, unspecified; I25.5 Ischemic cardiomyopathy; I65.29 Occlusion and stenosis of unspecified carotid artery; Z95.1 Presence of aortocoronary bypass graft

== ENCOUNTER → 2019-08-11 08:31 | Outpatient (CLI) | payer MEDICARE ==
[2017-11-07 13:32] VITALS: BMI 34.9
--- NOTE | ~2019-08-11 | EC ---
PATIENT:ISIS VALE DATE OF SERVICE: 08/11/19 SEX: M MEDICAL RECORD: [id number] DATE OF : 41 [facility] AGE OF PATIENT: 74 ADMISSION DATE: 08/11/19 REFERRING PHYSICIAN: INTERPRETING PHYSICIAN: LAKISHA GALVEZ MD ECHOCARDIOGRAM REPORT ECHO CHARGES 4 ECHO COMPLETE Date: 08/11/19 CLINICAL DIAGNOSIS: CAD/MITRAL REGURG HX CABG ECHOCARDIOGRAPHIC MEASUREMENTS (adult normal given) AC root (d.<3.7cm) 3.9 cm LV Septum d (<1.2 cm> 1.4 cm Valve Excursion 2.1 cm LV Septum (systole) 1.5 cm Left Atria (s.<4.0cm> 4.4 cm LVPW d(<1.2cm) 1.3 cm RV (d.<2.3cm) 4.1 cm LVPW (sytole) 1.7 cm LV diastole(<5.6CM) 6.0 cm MV E-F(>70mm/sec) cm LV systole 4.5 cm LVOT Diameter 1.9 cm MV exc.(>10mm) 1.3 cm Est.ejection fraction (50-75%) % DOPPLER: LVIT cm/sec A 89.0 cm/sec E 77.0 cm/sec LA cm/sec RVSP 13 mmHg LVOT 75 cm/sec AOP1/2T m/s Asc. Ao 113 cm/sec RVOT 77 cm/sec RA cm/sec PA 88 cm/sec AV Gradient Peak 5.07 mmHg AV Mean 2.47 mmHg AV Area 1.9 cm MV Gradient Peak 4.13 mmHg MV Mean 1.66 mmHg MV Area cm COMMENTS: Survey Interviewer: 2 EBONI DUBOSE Welfare Case Worker: 3 Dr. Altamirano TAPE# PACS Pericardial Effusion N DATE OF SERVICE: Adequate 2D, color flow imaging, spectral Doppler, and M-Mode. LVH is present. LV internal dimensions are normal. Wall motion is normal. EF is greater than or equal to 55%. Aortic valve is tricuspid. No evidence of stenosis by Doppler interrogation. Left atrium is mildly dilated at 4.4 cm. Mitral valve shows no prolapse. Mild MR. Right-sided chambers are grossly normal. Trace TR. ECHOCARDIOGRAM REPORT [id number] ISIS VALE TRANSINT:[id number] Voice Confirmation ID: [id number] DOCUMENT ID: [id number] LAKISHA GALVEZ MD CC: [id number] DICTATION DATE: 08/12/19 1517 FOLDER HAND: 08/12/19 183 DEP CLI 08/11/19 [id number] [place] [id number]
[~2019-08-11 08:31] MED LIST changes: +ALEVE220 MG PO; +CEFUROXIME500 MG PO; +FLOMAX0.4 MG PO; +K-DUR20 MEQ PO; +LASIX40 MG PO; +NEURONTIN 300300 MG PO; +VENTOLIN HFA18 GM INH
== END | disposition home or self-care (01) ==
LOC: D.HCCECHO 06-03 08:30
PROVIDERS: ATTEND Internal Medicine Interventional Cardiology
DX: I70.203 Unspecified atherosclerosis of native arteries of extremities, bilateral legs (principal); I25.10 Atherosclerotic heart disease of native coronary artery without angina pectoris

== ENCOUNTER → 2019-09-02 09:22 | Outpatient (CLI) | payer MEDICARE ==
[2017-11-07 13:32] VITALS: BMI 34.9
== END | disposition home or self-care (01) ==
LOC: D.MRI 09:22
PROVIDERS: ATTEND Family Medicine
DX: R42 Dizziness and giddiness (principal)

== ENCOUNTER → 2019-09-23 12:12 | Outpatient (CLI) | payer MEDICARE ==
[2017-11-07 13:32] VITALS: BMI 34.9
== END | disposition home or self-care (01) ==
LOC: D.US 12:12
PROVIDERS: ATTEND Internal Medicine Cardiovascular Disease
DX: I65.21 Occlusion and stenosis of right carotid artery (principal)

== ENCOUNTER 2019-10-04 11:45 | Inpatient (IN) | payer MEDICARE ==
[~2019-10-04] VITALS: Ht 179.1 cm; Wt 100.7 kg
--- NOTE | ~2019-10-04 | HEMODYNAMI ---
PATIENT:ISIS VALE MEDICAL RECORD: [id number] : 41 [id number] ADMISSION DATE: 10/11/19 Generatedon:10/14/201912:42 Patient name: ISIS VALE Patient #: [id number] SSN: [id number] : 1945 Date of study: 10/14/2019 Page: Of Hemodynamic Procedure Report Patient Data Patient Demographics Procedure consent was obtained First Name: ISIS Gender: Male Last Name: KAVIN : 1945 Middle Initial: AARON Age: 74 year(s) Patient #: [id number] Race: Unknown SSN: [id number] Additional ID: [id number] Contact details Address: [address] [place] [address] State: [place] City: [facility] Zip code: [address] Past Medical History Allergies: No known allergies Admission Admission Data Admission Date: 10/11/2019 Admission Time: 6:42 Arrival Date: 10/14/2019 Arrival Time: 0:00 Admit Source: Other Insurance Payor: Medicare Room #: D.CV07 [facility] #: [id number] Height (in.): 70.47 BSA: 2.24 (m2) Height (cm.): 179 BMI: 33.08 (kg/m2) Weight (lbs.): 233.69 Weight (kg.): 106 Lab Results Lab Result Date: 10/14/2019 Lab Result Time: 0:00 Biochemistry Name Units Result Min Max BUN mg/dl 39 --(----)-* 7 18 Creatinine mg/dl 1.9 --(----)-* 0.6 1.3 eGFR ml/min 37 *-(----)-- 90 120 NONAFRICAN CBC Name Units Result Min Max Hemoglobin g/dl 12.1 *-(----)-- 13.5 17.5 Procedure Procedure Types Cath Procedure Diagnostic Procedure LHC LHC w/Coronaries w/Grafts Sedation Charges Moderate Sedation up to 15 minutes PCI Procedure PTCA PTCA Initial Hemochron ACT Test Procedure Description Procedure Date Procedure Date: 10/14/2019 Procedure Start Time: 11:36 Procedure End Time: 12:39 Procedure Staff Name Function Braulio Urena MD Performing Physician Lety Coburn RT Monitor Jorge Albert RN Nurse Umm Puentes RT Scrub Procedure Data Cath Procedure Fluoroscopy Diagnostic fluoroscopy Total fluoroscopy Time: time: 11.5 min 11.5 min Diagnostic fluoroscopy Total fluoroscopy dose: dose: 2088 mGy 2088 mGy Contrast Material Contrast Material Type Amount (ml) Isovue 300 102 Entry Location Entry Primary Successful Side Size Upsize Upsize Entry Closure Succes sful Closure Location (Fr) 1 (Fr) 2 (Fr) Remarks Device Remarks Femoral Right 5 Fr 7 Fr with artery Short Amplatz wire Estimated blood loss: 20 ml Diagnostic catheters Device Type Used For End Catheter Placement MULTIPACK 3DRC 5Fr Procedure catheter MULTIPACK JL 4.0 5Fr Procedure catheter MULTIPACK Pigtail 5 Fr Ventriculography catheter Procedure Complications No complications Procedure Medications Medication Administration Route Dosage Oxygen NC 4 l/min unlisted medication I.V. drip 4 mg/hr 0.9% NaCl I.V. Lidocaine 2% added to field 20 Fentanyl I.V. 50 mcg Fentanyl I.V. 25 mcg Fentanyl I.V. 25 mcg Heparin Bolus I.V. 4000 units Hemodynamics Rest BSA: 2.24 (m2) HGB: 12.1 (g/dl) O2 Consumption: Estimated: 283.32 (ml/min) O2 Co nsumption indexed: Estimated:126.48 (ml/min/m) Heart Rate: 101 (bpm) Snapshots Pre Cath Intra NCS Post Cath Vital Signs Time Heart Resp SPO2 etCO2 NIBP (mmHg) Rhythm Pain Sedation Rate (ipm) (%) (mmHg) Status Level (bpm) 11:28:33 100 13 93 0 136/74(93) NSR 0 (11) 9(A) , No pain 11:32:55 100 22 92 0 135/72(105) NSR 0 (11) 9(A) , No pain 11:37:19 100 25 92 0 140/68(97) NSR 0 (11) 9(A) , No pain 11:41:41 97 22 92 0 134/69(100) NSR 0 (11) 9(A) , No pain 11:46:02 98 20 92 0 139/73(94) NSR 0 (11) 9(A) , No pain 11:50:22 99 20 92 0 138/70(93) NSR 0 (11) 9(A) , No pain 11:54:40 100 19 93 0 139/69(100) NSR 0 (11) 9(A) , No pain 11:59:02 100 17 91 0 134/74(105) NSR 0 (11) 9(A) , No pain 12:03:24 98 18 92 0 130/68(95) NSR 0 (11) 9(A) , No pain 12:07:42 97 20 91 0 127/69(93) NSR 0 (11) 9(A) , No pain 12:11:58 102 20 93 0 130/76(97) NSR 0 (11) 9(A) , No pain 12:16:18 103 21 91 0 132/70(93) NSR 0 (11) 9(A) , No pain 12:20:32 105 22 91 0 132/72(99) NSR 0 (11) 9(A) , No pain 12:24:50 103 22 92 0 138/72(98) NSR 0 (11) 9(A) , No pain 12:29:11 100 22 90 0 143/69(102) NSR 0 (11) 9(A) , No pain Medications Time Medication Route Dose Verified Delivered Reason Notes Ef fectiveness by by 11:30:37 Oxygen NC 4 Braulio Mannie used for l/min St Marco hassan MD 11:31:05 Cleviprex I.V. 4 Braulio Mannie Per physician drip mg/hr St Marco Albert RN, MD 11:31:31 0.9% NaCl I.V. kvo Braulio Mannie Per physician ml/hr [facility] Marco Albert RN, MD 11:31:38 Lidocaine added 20ml Braulio Patel used for 2% to vial St Marco garcia MD 11:38:00 Fentanyl I.V. 50 Braulio Buffie for sedation mcg [facility] Marco Albert RN, MD 11:48:00 Fentanyl I.V. 25 Braulio Mannie for sedation mcg [facility] Marco Albert RN, MD 11:56:54 Fentanyl I.V. 25 Braulio Buffie for sedation mcg [facility] Marco Albert RN, MD 12:02:15 Heparin I.V. 4000 Braulio Patel for verified Bolus units St Marco Albert RN anticoagulation with dr MD navarro Procedure Log Time Note 11:06:37 Arrival Date: 10/14/2019 12:00:00 AM 11:07:01 Admit Source: Other 11:07:11 Insurance Payor : Medicare 11:07:23 Patient Height : 70.47 inches 11:07:27 Patient Weight : 233.69 lbs 11:: Lab Result : BUN 39 mg/dl 11: Lab Result : eGFR NONAFRICAN 37 ml/min 11:: Lab Result : Creatinine 1.9 mg/dl 11:: Lab Result : Hemoglobin 12.1 g/dl 11::59 Procedure Status Urgent Heart Cath (IP). 11:10:03 Jorge Albert RN sent for patient. Start room use. 11:26:55 Time tracking: Regular hours (M-F 7:00 - 5:00) 11:27:00 Plan of Care:Hemodynamics will remain stable., Cardiac rhythm will remain stable., Comfort level will be maintained., Respiratory function will remain adequate., Patient/ family verbilizes understanding of procedure., Procedure tolerated without complication., Recovers from procedure without complications.. 11:27:06 Patient received from CVICU to CCL 2 Alert and oriented. Tansferred to table in Supine position. 11:27:09 Signed procedure consent form obtained from patient. 11:27:10 Warm blankets applied, and lg hugger turned on for patient comfort. 11:27:11 Correct patient and procedure confirmed by team. 11:27:12 ECG and BP/O2 sat monitors applied to patient. 11:27:13 Vital chart was started 11:27:14 Baseline sample Acquired. 11:27:17 Full Disclosure recording started 11:27:24 H&P Date Dictated: 10/14/2019 Within 30 days and on chart.. 11:27:25 Pre-procedure instructions explained to patient. 11:27:35 Patient NPO since Midnight. 11:27:50 Patient allergic to No known allergies 11:27:53 Is the patient allergic to Iodine/contrast media? No. 11:27:54 Is patient on blood thinner?Yes 11:27:57 ACC The patient was administered the following blood thiners within the last 24 hours: ACCPlavix 11:28:00 Patient diabetic? Yes. 11:28:01 If diabetic: On Metformin? Yes 11:28:06 If on Metformin: Last Dose? 10/13/2019 11:28:12 Snore? Yes 11:28:13 Sleep apnea? No 11:28:19 Patient pain scale 0/10 ?. 11:28:30 IV patent on arrival in Lt subclavian with 0.9% NaCl at [facility]. 11:28:36 Lab results completed and on chart. 11:28:41 Right groin area was prepped with chlora-prep and draped in sterile fashion 11:28:42 Alarms reviewed by R. N. 11:28:43 Sharps counted by scrub and verified by R.N. 11:28:47 Physician arrived 11:28:48 --------ALL STOP TIME OUT------ 11:28:48 Final Timeout: patient, procedure, and site verified with staff and physician. All members of the team are in agreement. 11:28:56 Right groin site verified by team. 11:29:05 Fire Safety Assessment: A--An alcohol-based skin anteseptic being used preoperatively., C--Open oxygen or nitrous oxide is being used., D--An ESU, laser, or fiber-optic light is being used. 11:29:16 Physical assessment completed. ASA score P 3 - A patient with severe systemic disease as per Braulio Urena MD. 11:29:29 3b) 30-44 Moderately reduced kidney function. 11:29:51 Maximum allowable contrast dose (3.7 X eGFR X 0.75)102 ml. 11:29:55 Sedation plan: IV Moderate Sedation Medication:Versed, Fentanyl 11:29:59 Use device set Femoral Dx 11:30:06 ACIST Syringe (72730) opened to sterile field. 11:30:07 Bag Decanter (2002) opened to sterile field. 11:30:09 Medline Cath Pack ([id number]) opened to sterile field. 11:30:10 ACIST Hand Control (56750) opened to sterile field. 11:30:11 ACIST Manifold (52213) opened to sterile field. 11:30:13 DIAGNOSTIC Multipack 5Fr catheter set (IU9749) opened to sterile field. 11:30:16 SHEATH 5FR Boring (DVR681) opened to sterile field. 11:30:17 EMERALD Guide Wire (502-749) opened to sterile field. 11:30:37 Oxygen 4 l/min NC was administered by Jorge Albert RN; used for procedure; Verbal order read back and verified. 11:31:05 Cleviprex 4 mg/hr I.V. drip was administered by Jorge Albert RN; Per physician; Verbal order read back and verified. 11:31:31 0.9% NaCl kvo ml/hr I.V. was administered by Jorge Albert RN; Per physician; Verbal order read back and verified. 11:31:38 Lidocaine 2% 20ml vial added to field was administered by Jorge Albert RN; used for procedure; Verbal order read back and verified. 11:32:39 pt positioned supine on table hob 25 degrees 11:32:50 Procedure started. 11:36:46 Local anesthetic to right femoral artery with Lidocaine 2% by Braulio Urena MD.INITIAL ACCESS ONLY 11:36:48 Zero performed for pressure channel P1 11:38:00 Fentanyl 50 mcg I.V. was administered by Jorge Albert RN; for sedation; Verbal order read back and verified. 11:41:20 AMPLATZ Super Stiff 75cm wire ([id number]) opened to sterile field. 11:45:33 A 5 Fr sheath was inserted into the Right Femoral arterywith Amplatz wire 11:46:36 glide wire advanced. 11:48:00 Fentanyl 25 mcg I.V. was administered by Jorge Albert RN; for sedation; Verbal order read back and verified. 11:48:25 EXOSEAL 5Fr (EX500) opened to sterile field. 11:48:51 A MULTIPACK 3DRC 5Fr catheter was advanced over the wire and used for Procedure.advanced with glidewire 11:49:27 HANSEN to LAD angiography performed. 11:50:02 SVG angiography performed. 11:50:30 SVG to Diag angiography performed. 11:51:33 RCA angiography performed. 11:51:37 Catheter removed. 11:51:41 GLIDE WIRE ANGLE 260cm (BS5649) opened to sterile field. 11:51:50 A MULTIPACK JL 4.0 5Fr catheter was advanced over the wire and used for Procedure. 11:51:52 LCA angiography performed. 11:56:54 Fentanyl 25 mcg I.V. was administered by Jorge Albert RN; for sedation; Verbal order read back and verified. 11:58:42 A MULTIPACK Pigtail 5 Fr catheter was advanced over the wire and used for Ventriculography. 11:58:46 LV gram done using YOUNG 11:58:52 EF : 50 % 11:58:53 Catheter removed. 11:59:04 Proceeding to intervention. 12:00:11 BMW 300cm [place] 2 J wire ([id number]) opened to sterile field. 12:00:11 GUIDE 7FR EBU 4.0 catheter ([id number]) opened to sterile field. 12:00:12 DIAGNOSTIC WIRE .035 260cm J wire (894664) opened to sterile field. 12:00:13 INFLATOR Merit BasixCompak (VG8021) opened to sterile field. 12:00:14 SHEATH 7FR Boring (GYG686) opened to sterile field. 12:00:29 Sheath upsized to a 7 Fr Short. 12:00:39 7 Fr EBU4 guide catheter was inserted over the wire 12:00:43 BMW wire advanced. 12:02:15 Heparin Bolus 4000 units I.V. was administered by Jorge Albert RN; for anticoagulation; verified with dr navarro Verbal order read back and verified. 12:08:00 Inflate balloon Inflation number: 1 A EUPHORA 3.0 x 15 Balloon ([id number]) was prepped and advanced across the Mid CX 90, then inflated to 10 DONI for 0:40 (min:sec) . 12:08:24 Inflation number: 2 The EUPHORA 3.0 x 15 Balloon ([id number]) was reinflated across the Mid CX , to 12 DONI for 0:19 (min:sec) . 12:08:53 Inflation number: 3 The EUPHORA 3.0 x 15 Balloon ([id number]) was reinflated across the Mid CX , to 0 DONI for 0:14 (min:sec) . 12:09:21 Inflation number: 4 The EUPHORA 3.0 x 15 Balloon ([id number]) was reinflated across the Mid CX , to 0 DONI for 0:17 (min:sec) . 12:09:49 Inflation number: 1 The EUPHORA 3.0 x 15 Balloon ([id number]) was reinflated across the Prox CX , to 0 DONI for 0:14 (min:sec) . 12:10:41 Inflation number: 5 The EUPHORA 3.0 x 15 Balloon ([id number]) was reinflated across the Mid CX , to 14 DONI for 0:11 (min:sec) . 12:11:23 Balloon removed over the wire. 12:15:59 The ZORAN RX 3.0 x 15 stent ([id number]) was advanced then removed because of failure to cross lesion 12:15:59 stent unable to cross. 12:18:01 Inflate balloon Inflation number: 2 A EUPHORA 3.0 x 15 Balloon ([id number]) was prepped and advanced across the Prox CX , then inflated to 12 DONI for 0:10 (min:sec) . 12:18:17 Inflation number: 3 The EUPHORA 3.0 x 15 Balloon ([id number]) was reinflated across the Prox CX , to 0 DONI for 0:07 (min:sec) . 12:18:37 Inflation number: 4 The EUPHORA 3.0 x 15 Balloon ([id number]) was reinflated across the Prox CX , to 0 DONI for 0:13 (min:sec) . 12:19:03 Inflation number: 5 The EUPHORA 3.0 x 15 Balloon ([id number]) was reinflated across the Prox CX , to 15 DONI for 0:14 (min:sec) . 12:19:15 Balloon removed over the wire. 12:26:41 The ZORAN RX 3.0 x 12 stent ([id number]) was advanced then removed because of failure to cross lesion 12:27:44 Tegaderm 4 x 4 (1626W) opened to sterile field. 12:27:50 Guide catheter removed. 12:28:03 Procedure ended.(Physican Out) 12:28:05 ACT drawn and resulted at 186 seconds. (normal therapeutic range 180-240 seconds). 12:28:37 Fluoroscopy time 11.50 minutes. 12:28:42 Fluoroscopy dose: 2088 mGy 12::42 Flurop Dose total: 8 12:28:48 Dose Area Product 373140 mGy/cm. 12::54 Contrast amount:Isovue 300 102ml. 12::56 Maximum allowable dose exceeded? No. 12::59 Insertion/operative site no bleeding no hematoma. 12:29:03 Post right femoral artery:stable 12:29:10 Post-procedure physical assessment completed. ASA score P 3 - A patient with severe systemic disease as per Braulio Urena MD. 12:29:13 Post procedure rhythm: unchanged. 12:: Estimated blood loss: 20 ml 12:: Post procedure instruction explained to patient.Patient verbalizes understanding. ::57 Procedure type changed to Cath procedure, Diagnostic procedure, LHC, LHC w/Coronaries w/Grafts, Sedation Charges, Moderate Sedation up to 15 minutes, PCI procedure, PTCA, PTCA Initial, Hemochron ACT Test 12:30:00 Procedure and supply charges have been captured, reviewed, submitted and are correct. 12::42 Procedure Complication : No complications 12::44 Vital chart was stopped 12:: [facility] Findings: MVD- PCI performed (see procedure note) 12::59 See physician's report for complete and final results. 12:32:01 Report given to Pre/Post Procedure Room. 12:32:06 Patient transfered to Pre/Post Procedure Room with Bed. 12:39:22 FEMSTOP Gold (G84620) opened to sterile field. 12:39:40 Femstop placed over the right femoral artery at 120 mmHg. Hemostasis achieved. 12:39:46 Procedure ended. 12:39:46 Full Disclosure recording stopped 12::57 ACC-PCI Only Patient was given prescriptions, or instructed by Braulio Urena MD to start/continue the following medications upon discharge: Plavix Intervention Summary Intervention Notes Time ActionType Lesion and Equipment Used Action# Pressure Duration Attributes 12:08:00 Inflate Mid CX EUPHORA 3.0 x 1 10 00:40 balloon 15 Balloon ([id number]) 12:08:24 Reinflate Mid CX EUPHORA 3.0 x 2 12 00:20 balloon 15 Balloon (FSS4314I) 12:08:53 Reinflate Mid CX EUPHORA 3.0 x 3 0 00:14 balloon 15 Balloon ([id number]) 12:09:21 Reinflate Mid CX EUPHORA 3.0 x 4 0 00:17 balloon 15 Balloon ([id number]) 12:09:49 Reinflate Prox CX EUPHORA 3.0 x 1 0 00:14 balloon 15 Balloon (RBV5573A) 12:10:41 Reinflate Mid CX EUPHORA 3.0 x 5 14 00:11 balloon 15 Balloon (HKJ5843X) 12:15:59 Discard ZORAN RX 3.0 x Stent 15 stent ([id number]) 12:18:01 Inflate Prox CX EUPHORA 3.0 x 2 12 00:10 balloon 15 Balloon ([id number]) 12:18:17 Reinflate Prox CX EUPHORA 3.0 x 3 0 00:07 balloon 15 Balloon ([id number]) 12:18:37 Reinflate Prox CX EUPHORA 3.0 x 4 0 00:13 balloon 15 Balloon (OMB3050J) 12:19:03 Reinflate Prox CX EUPHORA 3.0 x 5 15 00:14 balloon 15 Balloon ([id number]) 12:26:41 Discard ZORAN RX 3.0 x Stent 12 stent ([id number]) Device Usage Item Name Manufacture Quantity Catalog Hospital Part [facility] Lot# / Number Charge Number Stock Stock Serial# Code ACIST Syringe Acist 1 39189 617716 565490 496798 20 (80905) Medical Systems Inc Bag Decanter Microtek 1 895748 01135 782203 5 () Medical Inc. Medline Cath Medline 1 [id number] 824145 06733 945149 5 Pack ([id number]) ACIST Hand Acist 1 35292 027063 432296 062537 5 Control Medical (28678) Systems Inc ACIST Manifold Acist 1 33449 293665 391361 324635 5 (12662) Medical Systems Inc DIAGNOSTIC Cardinal 1 UI5963 182018 99572 037899 30 Multipack 5Fr Health catheter set (WL4223) SHEATH 5FR Terumo 1 ETC121 949412 047635 620628 5 Boring (WCK916) EMERALD Guide Cardinal 1 502-455 790239 790601 641602 5 Wire (502-455) Health AMPLATZ Super Clyo 1 [id number] 595224 176173 719606 5 Stiff 75cm Scientific wire ([id number]) EXOSEAL 5Fr Cardinal 1 EX500 077011 040512 912581 10 (EX500) Health MULTIPACK 3DRC Cardinal 1 398101 5 5Fr catheter Health GLIDE WIRE Terumo 1 GW1386 286555 629289 010097 5 ANGLE 260cm (LU6779) MULTIPACK JL Cardinal 1 406289 5 4.0 5Fr Health catheter MULTIPACK Cardinal 1 034998 5 Pigtail 5 Fr Health catheter BMW 300cm Lacey 1 [id number] 545358 565698 624108 5 [place] 2 J Vascular wire (6374087H) GUIDE 7FR EBU Medtronic 1 [id number] 306109 770234 467395 0 4.0 catheter (DA9PVX64) DIAGNOSTIC St Claudy 1 330617 775621 050655 863184 30 WIRE .035 260cm J wire (071844) INFLATOR Merit Merit 1 YR7817 170092 178478 871600 15 Rollerwall (TB7078) SHEATH 7FR Terumo 1 EKC519 695690 821415 026457 5 Boring (HXB114) EUPHORA 3.0 x Medtronic 2 [id number] 409531 675435 200113 5 [id number] 15 Balloon [id number] ([id number]) ZORAN RX 3.0 x Medtronic 1 [id number] 243543 9445810 172822 5 [id number] 15 stent ([id number]) ZORAN RX 3.0 x Medtronic 1 [id number] 439920 5976362 759679 5 [id number] 12 stent ([id number]) Tegaderm 4 x 4 3M 1 1626W 084520 400037 473476 5 (1626W) FEMSTOP Gold St Claudy 1 V34572 735911 935087 134974 5 ([id number]) Signature Audit [place] Stage Time Signature Unsigned Intra-Procedure 10/14/2019 Lety Coburn 12:40:53 PM RT(R) Intra-Procedure 10/14/2019 Jorge Albert RN 12:41:13 PM Intra-Procedure 10/14/2019 Braulio Dooley 12:42:07 PM Marco MD Signatures Performing Physician : Signature : Braulio Romel MD Date : Time : Monitor : Lety Almas Signature : RT Date : Time : Nurse : Buffie Albert RN Signature : Date : Time : [facility] [address] [place] [address]
--- NOTE | ~2019-10-04 | EC ---
PATIENT:ISIS VALE DATE OF SERVICE: 10/11/19 SEX: M MEDICAL RECORD: [id number] DATE OF : 41 LOCATION:[place] [address] AGE OF PATIENT: 74 ADMISSION DATE: 10/11/19 REFERRING PHYSICIAN: INTERPRETING PHYSICIAN: KATEY FREEMAN MD ECHOCARDIOGRAM REPORT ECHO CHARGES 4 ECHO COMPLETE Date: 10/16/19 CLINICAL DIAGNOSIS: AFIB, CAD ECHOCARDIOGRAPHIC MEASUREMENTS (adult normal given) AC root (d.<3.7cm) 3.6 cm LV Septum d (<1.2 cm> 0.8 cm Valve Excursion 1.8 cm LV Septum (systole) 1.0 cm Left Atria (s.<4.0cm> 4.4 cm LVPW d(<1.2cm) 0.8 cm RV (d.<2.3cm) 3.6 cm LVPW (sytole) 1.1 cm LV diastole(<5.6CM) 6.2 cm MV E-F(>70mm/sec) cm LV systole 5.0 cm LVOT Diameter 1.9 cm MV exc.(>10mm) cm Est.ejection fraction (50-75%) % DOPPLER: LVIT cm/sec A 21 cm/sec E 98 cm/sec LA cm/sec RVSP 19.2 mmHg LVOT 82 cm/sec AOP1/2T m/s Asc. Ao 81 cm/sec RVOT 54 cm/sec RA cm/sec PA 66 cm/sec AV Gradient Peak 2.6 mmHg AV Mean 1.4 mmHg AV Area 2.5 cm MV Gradient Peak 5.0 mmHg MV Mean 1.1 mmHg MV Area cm COMMENTS: [employer] Applications Analyst: Irene NEWELL [employer]ing Shop Supervisor: Caryn Freeman TAPE# PACS Pericardial Effusion N DATE OF SERVICE: PROCEDURE: Transthoracic echocardiogram. FINDINGS: 1. Left ventricle is mildly dilated. There is moderate concentric left ventricular hypertrophy. The ejection fraction appears to be 40% to 45%. There is possibly mild basilar inferior hypokinesis. 2. Left atrium is moderately dilated. 3. Aortic valve appears to be structurally normal. ECHOCARDIOGRAM REPORT [id number] ISIS VALE 4. Mild mitral regurgitation. 5. Tricuspid valve has mild tricuspid regurgitation. The right ventricular systolic pressure appears to be normal. 6. Right ventricle is mildly dilated. 7. Right atrium is mildly dilated. 8. Pulmonic valve is grossly normal. TRANSINT:[id number] Voice Confirmation ID: [id number] DOCUMENT ID: [id number] KATEY FREEMAN MD CC: [id number] DICTATION DATE: 10/17/191106 DIRECTOR OF RESIDENTIAL SERVICES: 10/17/19 1603 ADM IN [facility] [address] [place] [address]
[~2019-10-04 11:45] MED LIST changes: +LANTUS INS100 UNITS/; -LANTUS INSULIN10 ML SC
[2019-10-04] MEDS ORDERED: GLUCOPHAGE500 MG (12:49)
[2019-10-04] MEDS ORDERED: METFORMIN HCL500 M1 (12:49)
[2019-10-04 13:55] LABS: HEMATOCRIT 45.6 % (42.0-54.0); HEMOGLOBIN 14.9 g/dL (13.5-17.5); MCHC 32.7 g/dL (31.0-37.0); MCV 88.9 fL (80.0-100.0); MEAN PLATELET VOLUME 9.9 fL (7.4-10.4); RBC 5.13 10x6/uL (4.20-6.10); RDW 13.6 % (11.5-14.5); WBC 6.5 10x3/uL (4.8-10.8)
[2019-10-04 14:08] LABS: ANION GAP 11.1 mmol/L (8-16); BILIRUBIN - TOTAL 0.7 mg/dL (0.2-1.3); CALCIUM 9.2 mg/dL (8.5-10.1); CARBON DIOXIDE 28.1 mmol/L (21.0-32.0); CREATININE - SERUM 1.5 mg/dL (0.6-1.3); POTASSIUM - SERUM 4.2 mmol/L (3.5-5.1); PROTEIN - SERUM 6.7 g/dL (6.4-8.2)
[2019-10-04 14:54] LABS: BACTERIA FEW /hpf (NEGATIVE); BILIRUBIN NEGATIVE (NEGATIVE); EPITHELIAL CELLS 0-5 /hpf (0-5); HYALINE CAST 0-5 /lpf (NONE SEEN); KETONE NEGATIVE (NEGATIVE); NITRITE NEGATIVE (NEGATIVE); RED CELLS - URINE NONE SEEN /hpf (0-5); UROBILINOGEN NORMAL (NORMAL); WHITE CELLS - URINE RARE /hpf (NEGATIVE)
[2019-10-04 15:03] LABS: APTT 29.7 SECONDS (22.8-39.4); INR 0.97 (0.85-1.17); PROTIME 12.8 SECONDS (11.6-15.0)
[2019-10-11] VITALS (45 sets, daily range): BP systolic 97–170; BP diastolic 40–69; BMI 32.7; BMI 33.4
--- NOTE | 2019-10-11 13:30 | NUR ---
PT ARRIVED TO CVICU ROOM. CURRENTLY NOT ON ANY DRIPS. BP STABLE IN 120'S PER ART LINE. PT HAS MARTIN AND MAGALI DRAIN. RT NECK INCISION. ALERT AND ORIENTED. NO COMPLAINTS NOTED AT THIS TIME. WILL CONTINUE TO MONITOR
--- NOTE | 2019-10-11 14:00 | NUR ---
PT TAKEN OFF NRB MASK AND PLACED ON 4L NC. TOLERATING WELL. O2 SATS IN THE MID TO UPPER 90'S. WILL CONTINUE TO MONITOR
--- NOTE | 2019-10-11 16:25 | NUR ---
SPOKE WITH PT . GAVE UPDATE. ANSWERED QUESTIONS. WILL CONTINUE TO MONITOR
--- NOTE | 2019-10-11 16:30 | NUR ---
NOTIFIED LULÚ, DR LIRA'S NURSE, OF PT HR. AWAITING RESPONSE. PT HAS HR IN UPPER 50'S. CURRENTLY 57. WILL CONTINUE TO MONITOR
--- NOTE | 2019-10-11 17:05 | NUR ---
VERBAL ORDER RECEIVED FROM DR LIRA TO GIVE LOTRIL NOW.
--- NOTE | 2019-10-11 19:00 | NUR ---
REPORT RECEIVED. PT RESTING IN BED, NO ACUTE DISTRESS NOTED. ASSESSMENT COMPLETED, SEE FLOWSHEET. LEFT SUBCLAVIAN CVL INFUSING, SEE IV FLOWSHEET. LT RADIAL A-LINE, ZERO'D WITH GOOD WAVEFORM.
--- NOTE | 2019-10-11 21:00 | NUR ---
PM MEDS ADMINISTERED WITHOUT DIFFICULTY.
[2019-10-12] VITALS (94 sets, daily range): BP systolic 101–166; BP diastolic 42–61; BMI 33.3
[2019-10-12 06:01] LABS: BASOPHILS 0.3 % (0-2); EOSINOPHILS 0.2 % (0-7); HEMATOCRIT 39.1 % (42.0-54.0); HEMOGLOBIN 12.4 g/dL (13.5-17.5); IMMATURE GRANULOCYTES 0.1 % (0-5); LYMPHOCYTES 13.2 % (15-50); MCH 28.6 pg (26.0-34.0); MCHC 31.7 g/dL (31.0-37.0); MCV 90.1 fL (80.0-100.0); MEAN PLATELET VOLUME 10.2 fL (7.4-10.4); NEUTROPHILS 72.2 % (40-80); PLATELET COUNT 207 10x3/uL (130-400); RBC 4.34 10x6/uL (4.20-6.10); RDW 13.9 % (11.5-14.5); WBC 10.8 10x3/uL (4.8-10.8)
[2019-10-12 06:44] LABS: ANION GAP 12.3 mmol/L (8-16); CARBON DIOXIDE 26.7 mmol/L (21.0-32.0); CREATININE - SERUM 1.7 mg/dL (0.6-1.3); MAGNESIUM - SERUM 2.1 mg/dL (1.8-2.4); PHOSPHOROUS 4.5 mg/dL (2.5-4.9)
--- NOTE | 2019-10-12 10:58 | NUR ---
0715-RECIEVED AWAKEA AND ALERT-C/O OF SEVERE PAIN TO L FIRST HAND DIGIT-NOTED JYOTHI BOARD STRONGLY SECURED-DISCOLOURATION TO DIGIT WITH TISSUE COMPRESSION-NOTED SAME AT MID FOREARM-BOARD REMOVED-PT EXPRESSED IMMEDIATE RELIEF-ENCOURAGED MOVEMENT TO L HAND DIGITS AND ELBOW-NOTED DISCOLOURATION IMPROVED -TISSUE COMPRESSION REMAINS-PT REQUESTED TO STAND UP ASSISTED WITH QPVT-AROYHU-GTLYV J GASPAR TUBING -COMPRESSED AND SEROUS DRAINAGE-ABP DECREASED TO 123/68-CLEVIPREX TURNED OFF -NTG GTT INFUSING AT 3MCG/MIN 0830-ORDER RECIEVED TO D/C RAMON AND SAME DONE-PER PROTOCOL-TOLERATED WELL BY PT. 0900- AT BEDSIDE-
--- NOTE | 2019-10-12 13:31 | NUR ---
1145-AMBULATED IN WITH PHYSICAL THERAPY ON O2 AT 2L
--- NOTE | 2019-10-12 14:52 | NUR ---
NIBP 132/60-NTG D/C'D AND L CVL SALINE LOCKED PT IN RESTROOM ATTEMPTING TO VOID
--- NOTE | 2019-10-12 17:58 | NUR ---
7705-DR CORTES AT BEDSIDE-PT VOCALIZED-NOT ABLE TO VOID-R NECK JPRATT IN PLACE AND COMPRESSED FOR SUCTION-SEROUS DRAINAGE-INCISION SITE SOFT TO TOUCH
--- NOTE | 2019-10-12 19:00 | NUR ---
UPON ARRIVING TO UNIT BEFORE SHIFT REPROTJoe HSU RN IS IN PT ROOM PERFORMING IN AND OUT CATHETOR PER . 300ML URINE WAS DRAINED. VSS. AFTERWARDS PT C/O OF CHEST PAIN "IN MY CHEST AND DOWN MY ARM". 12 LEAD EKG WAS DONE AND CALLED AND READ TO . T.O TO CONSULT [facility] TO NOTIFY OF EKG CHANGES AND CHEST PAIN. T.O TO APPLY ONE 0.6MG NITRO PATCH NOW. T.O READ BACK CORRECT. PT IS IN NO DISTRESS AND VS ARE STABLE. WILL RECIVE BEDSIDE SHIFT REPORT. PT BED IS LOW,SIDE RAISLX2,CALL LIGHT WITHIN REACH
--- NOTE | 2019-10-12 19:25 | NUR ---
PT IS SITTING IN BED HOB AT 40. VSS. VOICES CHEST PAIN "HAS DONE AWAY SOME". WILL CONTINUE TO MONITOR THIS. I HAVE PAGED AT 1920 TO NOTIFY OF NEW CONSULT. FULL ASSESSMENT DONE AT THIS TIME AND WILL DOC IN FLOWHSEET. WILL CONTINUE TO MONITOR CHEST PAIN. BED IS LOW,SIDE RAISLX2,CALL LIGHT IS WITHIN REACH.
--- NOTE | 2019-10-12 20:00 | NUR ---
PAGED AFTER HOURS NUMBER AT [phone] FOR
--- NOTE | 2019-10-12 20:32 | NUR ---
PT IS LAYING AWAKE IN BED. VSS. HE VOICES CHEST PAIN IS NOW "2/10" "MUCH IMPROVED" HE VOICES. NO NEEDS VOICED AT THIS TIME. BED IS LOW,SIDE RAISLX2,CALL LIGHT WITHIN REACH. WILL CONITNUE TO MONITOR
--- NOTE | 2019-10-12 20:35 | MORECARE ---
CASE MANAGEMENT DISCHARGE SUMMARY PATIENT: ISIS VALE UNIT: [id number] ADM DATE: 10/11/19 AGE: 74 : 41 SEX: M ROOM/BED: D.[facility] AUTHOR: BRENDA,DOC PHYSICIAN: REFERRING PHYSICIAN: CHANDNI LIRA MD DATE OF SERVICE: 10/12/19 Discharge Plan Patient Name: ISIS VALE Facility: [facility]:[place] : 1945 Planned Disposition: Home Anticipated Discharge Date: Discharge Date: Expected LOS: Initial Reviewer: [email or web address] Initial Review Date: 10/11/2019 Generated: 10/12/19 9:34 pm Comments DCP- Discharge Planning Updated by [email or web address]: Rhiannon Delgado on 10/12/19 7:[address] Patient Name: ISIS VALE Admission Status: Elective Accout number: [id number] Admission Date: 10-11-2019 : 1945 Admission Diagnosis: Attending: CHANDNI LIRA Current LOS: 1 Anticipated DC Date: Planned Disposition: Home Primary Insurance: [facility] MEDICARE SOLUTIONS Discharge Planning Comments: CM met with patient to complete initial dc planning assessment. CM educated patient on the CM role and verbal consent given by patient to complete assessment. Patient lives at home with family. Patient is independent. At discharge patient plans to return home and feels this is a safe discharge. CM discussed availability of home health, rehab services, and medical equipment. Patient will have family to transport home. Patient denied known discharge needs at this time. CM will continue to follow and will assist as needed with dc plans/needs. Prison Librarian: Rhiannon Delgado DCPIA - Discharge Planning Initial Assessment Updated by [email or web address]: Rhiannon Delgado on 10/12/19 8:32 pm * Is the patient Alert and Oriented? Yes * How many steps to enter\exit or inside your home? * PCP BETO * Pharmacy [facility] - [facility] * Preadmission Environment Home with Family * ADLs Independent * Equipment Cane * List name and contact numbers for known caregivers / representatives who currently or will assist patient after discharge: SPENCER VALE - - [phone], * Verbal permission to speak to the caregivers and representatives has been obtained from the patient. No * Community resources currently utilized None * Additional services required to return to the preadmission environment? No * Can the patient safely return to the preadmission environment? Yes * Has this patient been hospitalized within the prior 30 days at any hospital? No Patient Name: ISIS VALE Page 58770 at 2035 All edits/amendments must be made on the electronic document DICTATION DATE: 10/12/192033 SERVER ASSISTANT: TONIO 10/12/192033 RPT#: [id number] DC DATE: STATUS: ADM IN [facility] [address] [place] [address] END OF REPORT
--- NOTE | 2019-10-12 21:20 | NUR ---
PAGED AFTER HOURS DISH CLOTH INSPECTOR AT [phone]
--- NOTE | 2019-10-12 22:23 | NUR ---
PAGED CARDIOLOGY AGAIN AT [phone]
--- NOTE | 2019-10-12 22:37 | NUR ---
TALKED WITH ALEKSANDER ALEXANDRE AT THIS TIME TO NOTIFY OF PT NEW ONSET CHEST PAIN AND STATUS. T.O TO GET CARDIAC ENZYMS WITH MORNINGIN LABS AND THAT THEY WILL SEE THE PT IN THE MORNING. T.O READ BACK CORRECT.
[2019-10-13] VITALS (98 sets, daily range): BP systolic 96–168; BP diastolic 50–74; Ht 179.1 cm; Wt 100.7 kg
--- NOTE | 2019-10-13 00:03 | NUR ---
PT IS RESTING WITH EYES CLOSED. AWAKES EASILY. VSS. WHEN ASKED ABOUT CHEST PAIN HE VOICES"ITS GONE". NO NEEDS OR OTHER C/O VOICED. BED IS LOW,SIDE RAISLX2,CALL LIGHT WITHIN REACH. WILL CONITNUE TO MONITOR
--- NOTE | 2019-10-13 04:16 | NUR ---
pt used call light and asked "i would like to go the BR and then sit up in the chair for alittle bit". assisted pt to BR and he voided medium amount of yellow urine and then to chair safely. VSS. voices "no" to any chest pain at this time. chiar wheels are locked, call light is within reach. bedside table by side. will continue to monitor
--- NOTE | 2019-10-13 05:17 | NUR ---
PT IS STILL SITTING UP IN CHAIR. VSS. VOICES"NOPE" TO ANY CHEST PAIN. HE ASKED FOR A CUP OF COFFEE WHICH I PROVIDED HIM. NO OTHER NEEDS VOICED. CALL LIGHT IS WITHIN REACH. WILL CONTINUE TO MONITRO
[2019-10-13 06:29] LABS: BASOPHILS 0.3 % (0-2); EOSINOPHILS 2.1 % (0-7); HEMATOCRIT 37.6 % (42.0-54.0); HEMOGLOBIN 12.1 g/dL (13.5-17.5); IMMATURE GRANULOCYTES 0.4 % (0-5); LYMPHOCYTES 9.6 % (15-50); MCH 28.9 pg (26.0-34.0); MCHC 32.2 g/dL (31.0-37.0); MEAN PLATELET VOLUME 10.6 fL (7.4-10.4); MONOCYTES 13.6 % (2-11); PLATELET COUNT 223 10x3/uL (130-400); RBC 4.18 10x6/uL (4.20-6.10); RDW 14.5 % (11.5-14.5); WBC 11.4 10x3/uL (4.8-10.8)
[2019-10-13 06:50] LABS: CALCIUM 8.5 mg/dL (8.5-10.1); CHLORIDE - SERUM 103 mmol/L (98-107); CKMB 11.7 U/L (0.0-3.6); CREATINE KINASE 311 UL (21-232); CREATININE - SERUM 1.9 mg/dL (0.6-1.3); MAGNESIUM - SERUM 2.1 mg/dL (1.8-2.4); PHOSPHOROUS 3.5 mg/dL (2.5-4.9); POTASSIUM - SERUM 4.1 mmol/L (3.5-5.1); SODIUM 137 mmol/L (136-145); eGFR NON AFRICAN AMERICAN 37 mL/min (90-120)
[2019-10-13 07:05] LABS: CALC OSMOLALITY 286 mosm/kg (275-300); GLUCOSE 165 mg/dL (74-106); UREA NITROGEN 39 mg/dL (7-18)
[2019-10-13 07:06] LABS: TROPONIN-I 5.018 ng/mL (0.000-0.060)
--- NOTE | 2019-10-13 09:04 | NUR ---
SPOKE WITH PT . GAVE HER UPDATE AND ANSWERED QUESTIONS. STATED SHE WILL BE DOWN SOON.
[2019-10-13 10:16] LABS: CHOL - HDL RATIO 4.1 ratio (2.3-4.9); LDL-HDL RATIO 0.4 ratio (1.5-3.5)
--- NOTE | 2019-10-13 11:20 | NUR ---
DR CORTES IN ROOM. UPDATE GIVEN. PLANNING TO KEEP MAGALI DRAIN TODAY. WILL CONTINUE TO MONITOR
--- NOTE | 2019-10-13 12:33 | NUR ---
Nutrition Follow-up: Eating breakfast at time of visit this AM. Good appetite. -BM; +flatus. Noted plans for cath tomorrow. POD 2 R carotid endarterectomy. Diet: Diabetic Wt: 235.8# (10/11) Labs noted: Glu 165 Meds noted: Glucophage, Humulin, Protonix -Monitor wt. -RD following.
--- NOTE | 2019-10-13 14:16 | NUR ---
PT UP TO BATHROOM. VOIDED. CHG BATH GIVEN. PT BACK IN BED RESTING NOW. BP ELEVATED, CLEVIPREX DRIP TIRATED. WILL CONTINUE TO MONITOR
--- NOTE | 2019-10-13 15:02 | NUR ---
PRN MED GIVEN FOR BP.
--- NOTE | 2019-10-13 17:07 | NUR ---
PAGED CARDIOLOGY. JOSE M CALLED BACK. UPDATED HER ON PT HAVING CHEST PAIN. ORDERS RECEIVED. WILL CONTINUE TO MONITOR
[2019-10-14] VITALS (55 sets, daily range): BP systolic 90–152; BP diastolic 47–77
[2019-10-14 05:26] LABS: BASOPHILS 0.1 % (0-2); EOSINOPHILS 0.3 % (0-7); HEMATOCRIT 39.2 % (42.0-54.0); HEMOGLOBIN 12.7 g/dL (13.5-17.5); IMMATURE GRANULOCYTES 0.5 % (0-5); LYMPHOCYTES 6.9 % (15-50); MCH 28.7 pg (26.0-34.0); MCHC 32.4 g/dL (31.0-37.0); MCV 88.7 fL (80.0-100.0); MEAN PLATELET VOLUME 9.9 fL (7.4-10.4); MONOCYTES 9.5 % (2-11); NEUTROPHILS 82.7 % (40-80); PLATELET COUNT 215 10x3/uL (130-400); RBC 4.42 10x6/uL (4.20-6.10); RDW 14.5 % (11.5-14.5); WBC 12.9 10x3/uL (4.8-10.8)
[2019-10-14 05:47] LABS: ANION GAP 15.2 mmol/L (8-16); CALCIUM 8.8 mg/dL (8.5-10.1); CARBON DIOXIDE 20.8 mmol/L (21.0-32.0); CREATININE - SERUM 1.9 mg/dL (0.6-1.3); MAGNESIUM - SERUM 2.1 mg/dL (1.8-2.4); PHOSPHOROUS 3.3 mg/dL (2.5-4.9)
--- NOTE | 2019-10-14 08:56 | NUR ---
0730 PT RECIEVED ALERT AND ORIENTED O2 3L NC R CEA INCISION DRESSING CDI WITH MAGALI DRAIN COMPRESSED AND DRESSING CDI L SUBCLAVIAN CVL DRESSING CDI WITH CLEVIPREX INFUSING 7MG OR 14ML/HR, DENIES PAIN AND ALL NEEDS 0830 SPOKE WITH CYNDIE IN FOOD SUPERVISOR, OK TO GIVE AM BP MEDS/ASA/PLAVIX, GIVEN WITH SIP OF WATER PER EMAR, PT DENIES ALL QUESTIONS ABOUT HEART CATH
--- NOTE | 2019-10-14 10:47 | NUR ---
RECIEVED CALL FROM TEAM FOREMAN, PREOP MEDS GIVEN
--- NOTE | 2019-10-14 11:12 | NUR ---
PT TO ENVELOPE ADDRESSER WITH ENVELOPE ADDRESSER STAFF, AWARE
--- NOTE | 2019-10-14 13:16 | NUR ---
1255 PT RECIEVED BACK TO ROOM R GROIN FEMSTOP IN PLACE, O2 6L
--- NOTE | 2019-10-14 15:22 | NUR ---
1500 FEMSTOP WEANED OFF, SITE SOFT, NO SIGNS OF BLEEDING OR HEMATOMA
--- NOTE | 2019-10-14 16:04 | NUR ---
DR CORTES IN UNIT, MAGAIL DRAIN DCD
--- NOTE | 2019-10-14 17:50 | NUR ---
BLADDER SCANNER SHOWING 364ML, PT UNABLE TO VOID STATES HE DOESNT HAVE THE URGE, DR CORTES NOTIFIED WITH NO NEW ORDERS
[2019-10-14 19:09] LABS: ANION GAP 13.2 mmol/L (8-16); CALCIUM 8.1 mg/dL (8.5-10.1); CREATININE - SERUM 2.1 mg/dL (0.6-1.3); POTASSIUM - SERUM 4.2 mmol/L (3.5-5.1)
--- NOTE | 2019-10-14 21:20 | NUR ---
CALL TO DR. DHILLON. UPDATED ON PATIENT. INFORMED OF INCREASING DYSPNEA AND DECREASED 02 SAT. NEW ORDERS RECEIVED.
[2019-10-15] VITALS (27 sets, daily range): BP systolic 98–144; BP diastolic 46–77
[2019-10-15 06:38] LABS: BASOPHILS 0.1 % (0-2); EOSINOPHILS 0.1 % (0-7); HEMATOCRIT 32.8 % (42.0-54.0); HEMOGLOBIN 10.6 g/dL (13.5-17.5); IMMATURE GRANULOCYTES 0.3 % (0-5); LYMPHOCYTES 9.7 % (15-50); MCH 28.9 pg (26.0-34.0); MCHC 32.3 g/dL (31.0-37.0); MCV 89.4 fL (80.0-100.0); MEAN PLATELET VOLUME 10.2 fL (7.4-10.4); MONOCYTES 11.2 % (2-11); NEUTROPHILS 78.6 % (40-80); PLATELET COUNT 205 10x3/uL (130-400); RBC 3.67 10x6/uL (4.20-6.10); RDW 14.9 % (11.5-14.5)
[2019-10-15 06:39] LABS: ANION GAP 12.7 mmol/L (8-16); CALCIUM 8.4 mg/dL (8.5-10.1); CARBON DIOXIDE 23.4 mmol/L (21.0-32.0); CREATININE - SERUM 2.1 mg/dL (0.6-1.3); MAGNESIUM - SERUM 2.3 mg/dL (1.8-2.4); PHOSPHOROUS 3.6 mg/dL (2.5-4.9); POTASSIUM - SERUM 4.1 mmol/L (3.5-5.1)
--- NOTE | 2019-10-15 09:09 | NUR ---
0700 PT RECIEVED UP IN CHAIR ALERT AN DORIENTED VSS DENIES PAIN AND ALL NEEDS R CEA INCISION AND MAGALI SITE CDI, L SUBCLAVIAN CVL DRESSING CDI, O2 3L NC, USES IS INDEPENDENTLY, 0900 TOOK AM MEDS WITHOUT DIFFICULTY DENIES ALL NEEDS
--- NOTE | 2019-10-15 13:34 | NUR ---
PT HR AFIB 120S DR CORTES IN UNIT NOTIFIED, CARDIOLOGY MOBILE PAINT SPECIALISTPaulette SALGUERO NOTIFIED, ORDERS FOR AMIODARONE BOLUS ANDIF PT DOES NOT CONVERT THEN START AMIO GTT
--- NOTE | 2019-10-15 13:52 | NUR ---
NUTRITION FOLLOW UP: COMMENTS:Patient has been eating well for the past 6 meals. No BM recorded since admit. DIET: Diabetic Diet PO INTAKE: 70% avg for last 6 meals WEIGHT: 236 lbs on 10/11 BM: None recorded at this time SIG MEDS: Lipitor, Humulin, Protonix SIG LABS: Na-135(L), BUN-75(H), Cr-2.1(H), POC Glucose- 170,212,185,178 RECOMMENDATIONS: -Continue Diabetic diet as tolerated -Offer nutritional supplements if po intake becomes < 50% avg for meals RD to continue to follow and monitor patient DHS
--- NOTE | 2019-10-15 17:10 | NUR ---
PT CONTINUES IN AFIB ON AMIO GTT, HR 90S-110S, ASSISTED TO SIDE OF BED TO EAT DINNER
--- NOTE | 2019-10-15 18:04 | NUR ---
PT ASSISTED BACK TO BED, ATE 50% DINNER
--- NOTE | 2019-10-15 19:00 | NUR ---
REPORT RECEIVED. RECEIVED PAIENT IN BED. AWAKE AND ALERT, ORIENTED X 4. DYSPNEA/TACHYPNEA OBSERVED. PATIENT COMPLAINS OF FEELING "OUT OF BREATH" LUNG SOUNDS COARSE BILATERALLY AND DIMINISHED IN BASES. PULLED UP IN BED WITH HOB AT 90 DEGREES. INCENTIVE SPIROMETER USED. INSTRUCTED TO DEEP BREATH AND COUGH AND DID SO WITH GOOD EFFORT. WET SOUNDING COUGH OBSERVED BUT PATIENT UNABLE TO PRODUCE ANY SPUTUM. LUNG SOUNDS CLEAR BRIEFLY AFTER COUGHING BUT NO INCREASE IN 02 SATURATION 87-88% ON 02@ 5L/MIN PER NC. CHANGED TO HIGH FLOW NC AND TITRATED O2 TO 8L/NC . 02 SAT INCREASED TO 92% AT THIS TIME AND SOME EASE OF BREATHING OBSERVED. VSS. CONTINUES CONTROLLED A FIB ON MONITOR. CALL LIGHT IN EASY REACH AND ABLE TO UTILIZE TO MAKE NEEDS KNOWN.
--- NOTE | 2019-10-15 19:26 | MORECARE ---
CASE MANAGEMENT DISCHARGE SUMMARY PATIENT: ISIS VALE UNIT: [id number] ADM DATE: 10/11/19 AGE: 74 : 43 SEX: M ROOM/BED: D[facility] AUTHOR: BRENDA,DOC PHYSICIAN: REFERRING PHYSICIAN: CHANDNI LIRA MD DATE OF SERVICE: 10/15/19 Discharge Plan Patient Name: ISIS VALE Facility: [facility]:[place] : 1945 Planned Disposition: Home Anticipated Discharge Date: Discharge Date: Expected LOS: Initial Reviewer: [email or web address] Initial Review Date: 10/11/2019 Generated: 10/15/19 8:25 pm Comments DCP- Discharge Planning Updated by [email or web address]: Rhiannon Delgado on 10/15/19 6:[address] Patient is currently still using 02 @ 3L. He may need walk test for home 02. CM will continue to follow and assist as needed with discharge planning / needs. DCP- Discharge Planning Updated by [email or web address]: Rhiannon Delgado on 10/12/19 7:[address] Patient Name: ISIS VALE Admission Status: Elective Accout number: [id number] Admission Date: 10-11-2019 : 1945 Admission Diagnosis: Attending: CHANDNI LIRA Current LOS: 1 Anticipated DC Date: Planned Disposition: Home Primary Insurance: [facility] MEDICARE SOLUTIONS Discharge Planning Comments: CM met with patient to complete initial dc planning assessment. CM educated patient on the CM role and verbal consent given by patient to complete assessment. Patient lives at home with family. Patient is independent. At discharge patient plans to return home and feels this is a safe discharge. CM discussed availability of home health, rehab services, and medical equipment. Patient will have family to transport home. Patient denied known discharge needs at this time. CM will continue to follow and will assist as needed with dc plans/needs. Nurse Tech: Rhiannon Delgado DCPIA - Discharge Planning Initial Assessment Updated by [email or web address]: Rhiannon Delgado on 10/12/19 8:32 pm * Is the patient Alert and Oriented? Yes * How many steps to enter\exit or inside your home? * PCP BETO * Pharm[facility] - [facility] * Preadmission Environment Home with Family * ADLs Independent * Equipment Cane * List name and contact numbers for known caregivers / representatives who currently or will assist patient after discharge: SPENCER VALE - - [phone], * Verbal permission to speak to the caregivers and representatives has been obtained from the patient. No * Community resources currently utilized None * Additional services required to return to the preadmission environment? No * Can the patient safely return to the preadmission environment? Yes * Has this patient been hospitalized within the prior 30 days at any hospital? No Last DP export: 10/12/19 7:35 p Patient Name: ISIS VALE Page 97880 at 1926 All edits/amendments must be made on the electronic document DICTATION DATE: 10/15/191925 SHORT ORDER FRY COOK: TONIO 10/15/191925 RPT#: [id number] DC DATE: STATUS: ADM IN [facility] [address] [place] [address] END OF REPORT
--- NOTE | 2019-10-15 20:30 | NUR ---
RECEIVED CALL FROM SPENCER. PASSCODE VERIFIED. UPDATED ON PATIENT WITH QUESTIONS ANSWERED
--- NOTE | 2019-10-15 20:38 | NUR ---
PAGE TO DR. DHILLON. RE INCREASING DYSPNEA
--- NOTE | 2019-10-15 21:20 | NUR ---
CALL TO DR. DHILLON. UPDATED ON PATIENT, REPORTED INCREASE IN DSYPNEA AND DECREASED 02 SAT. NEW ORDERS RECEIVED .
--- NOTE | 2019-10-15 23:00 | NUR ---
REASSESSMENT COMPLETED. ON BIPAP AT ORDERED SETTINGS. RESP EVEN AND UNLABORED. 02 SAT 100%
--- NOTE | 2019-10-15 23:00 | NUR ---
CALL TO SPENCER UPDATED ON PATIENT AND NEW ORDERS. QUESTIONS ANSWERED
[2019-10-16] VITALS (39 sets, daily range): BP systolic 82–140; BP diastolic 39–70
--- NOTE | 2019-10-16 03:00 | NUR ---
REASSESSMENT COMPLETED WITH NO ACUTE DISTRESS OBSERVED. VSS. CONTINUES ON BIPAP AT ORDERED SETTINGS. RESP ARE EVEN AND UNLABORED. RESTING WITH EYES CLOSED, EASILY ROUSED AND ALERT. DENIES ANY COMPLAINT OR NEED AT THIS TIME. CALL LIGHT IN REACH
--- NOTE | 2019-10-16 04:13 | NUR ---
STARTED ON BIPAP AT 2140 10/15/1901/28/60% TOLERATED APPLICATION WELL
[2019-10-16 05:57] LABS: BASOPHILS 0.2 % (0-2); EOSINOPHILS 0.5 % (0-7); HEMATOCRIT 31.4 % (42.0-54.0); HEMOGLOBIN 10.1 g/dL (13.5-17.5); IMMATURE GRANULOCYTES 0.3 % (0-5); LYMPHOCYTES 10.7 % (15-50); MCH 28.9 pg (26.0-34.0); MCHC 32.2 g/dL (31.0-37.0); MCV 89.7 fL (80.0-100.0); MEAN PLATELET VOLUME 10.5 fL (7.4-10.4); MONOCYTES 12.8 % (2-11); NEUTROPHILS 75.5 % (40-80); PLATELET COUNT 207 10x3/uL (130-400); RDW 15.3 % (11.5-14.5)
[2019-10-16 06:45] LABS: ALBUMIN 2.5 g/dL (3.4-5.0); ANION GAP 15.5 mmol/L (8-16); BILIRUBIN - TOTAL 0.56 mg/dL (0.2-1.3); CALCIUM 7.9 mg/dL (8.5-10.1); CARBON DIOXIDE 21.5 mmol/L (21.0-32.0); MAGNESIUM - SERUM 2.7 mg/dL (1.8-2.4); PHOSPHOROUS 3.8 mg/dL (2.5-4.9); PROTEIN - SERUM 5.9 g/dL (6.4-8.2)
[2019-10-16 06:49] LABS: CREATININE - SERUM 2.7 mg/dL (0.6-1.3)
--- NOTE | 2019-10-16 07:45 | NUR ---
FC INSERTED PER PROTOCOL. IMMEDIATE RETURN OF 500 ML JIN COLORED URINE. PATIENT XIMENA WELL. VSS.
[2019-10-16 17:28] LABS: ANION GAP 13.3 mmol/L (8-16); CALCIUM 8.3 mg/dL (8.5-10.1); CARBON DIOXIDE 23.4 mmol/L (21.0-32.0); CREATININE - SERUM 3.3 mg/dL (0.6-1.3)
[2019-10-16 17:30] LABS: POTASSIUM - SERUM 4.7 mmol/L (3.5-5.1)
--- NOTE | 2019-10-16 19:00 | NUR ---
REPORT RECEIVED. RECEIVED PATIENT IN BED, RESTING WITH EYES CLOSED. EASILY ROUSED AND ALERT. ON BIPAP AT ORDERED SETTINGS. RESP EVEN AND UNLABORED. CURRENTLY RECEIVING IV NS FLUID BOLUS FOR HYPOTENSION AND TOLERATING WELL. CONTINUES ATRIAL FLUTTER RATE OF 58 ON MONITOR, ON AMIO GTT. ASSESSMENT COMPLETED PER FLOW SHEET WITH NO ACUTE DISTRESS OBSERVED. WILL CONTINUE CURRENT POC
--- NOTE | 2019-10-16 21:57 | NUR ---
NEPHROLOGOY THERAPIST RRT PAGED R/T LOW URINE OUTPUT AND HYPOTENSION
--- NOTE | 2019-10-16 22:15 | NUR ---
RETURN CALL FROM DR. RIVAS. INFORMED OF CONTINUED HYPOTENSION AND LOW URINE OUTPUT. INSTRUCTED TO HOLD AMIO GTT AND INITIATE LEVOPHED DRIP.
[2019-10-17] VITALS (80 sets, daily range): BP systolic 88–162; BP diastolic 40–97
[2019-10-17 03:57] LABS: BASOPHILS 0.3 % (0-2); EOSINOPHILS 1.5 % (0-7); IMMATURE GRANULOCYTES 0.3 % (0-5); MCH 28.8 pg (26.0-34.0); MCHC 32.3 g/dL (31.0-37.0); MCV 89.3 fL (80.0-100.0); MEAN PLATELET VOLUME 10.7 fL (7.4-10.4); NEUTROPHILS 74.9 % (40-80); PLATELET COUNT 253 10x3/uL (130-400); RBC 3.47 10x6/uL (4.20-6.10); RDW 15.1 % (11.5-14.5); WBC 11.9 10x3/uL (4.8-10.8)
[2019-10-17 04:11] LABS: ALBUMIN 2.4 g/dL (3.4-5.0); ANION GAP 16.2 mmol/L (8-16); BILIRUBIN - TOTAL 0.64 mg/dL (0.2-1.3); CALCIUM 8.2 mg/dL (8.5-10.1); CARBON DIOXIDE 21.1 mmol/L (21.0-32.0); CREATININE - SERUM 3.7 mg/dL (0.6-1.3); MAGNESIUM - SERUM 2.7 mg/dL (1.8-2.4); POTASSIUM - SERUM 4.3 mmol/L (3.5-5.1); PROTEIN - SERUM 5.9 g/dL (6.4-8.2)
[2019-10-17 04:12] LABS: PHOSPHOROUS 5.3 mg/dL (2.5-4.9)
--- NOTE | 2019-10-17 05:35 | NUR ---
SPOKE WITH DR. RIVAS. AWARE OF BUN 108. UPDATED ON PATIENT, NO NEW ORDERS AT THIS TIME.
--- NOTE | 2019-10-17 10:17 | NUR ---
0925: HERE. CONDITION UPDATE GIVEN. SPOKE WITH PATIENT REGARDING DIALYSIS. 0945: NOTIFIED OF CONSULT. 0948: CONSENTS SIGNED FOR DIALYSIS CATHETER AND ARTERIAL LINE.
[2019-10-17 16:15] LABS: CKMB 3.9 U/L (0.0-3.6); CREATINE KINASE 161 UL (21-232)
[2019-10-17 16:18] LABS: TROPONIN-I 10.482 ng/mL (0.000-0.060)
--- NOTE | 2019-10-17 16:29 | NUR ---
1400: DR. MARCUM HERE. L IJ TRIALYSIS CATH PLACED AND R RADIAL ARTERIAL LINE PLACED.
--- NOTE | 2019-10-17 16:30 | NUR ---
DR. DHILLON HERE. FIO2 INCREASED TO 100%.
--- NOTE | 2019-10-17 16:50 | NUR ---
DR. FREEMAN NOTIFIED BY PHONE OF ELEVATED TROPONIN. 1700: DR. FREEMAN HERE. NO NEW ORDERS.
--- NOTE | 2019-10-17 18:38 | NUR ---
FIO2 DECREASED TO 85%.
[2019-10-17 23:10] LABS: BASOPHILS 0.2 % (0-2); EOSINOPHILS 2.4 % (0-7); HEMATOCRIT 29.6 % (42.0-54.0); HEMOGLOBIN 9.5 g/dL (13.5-17.5); IMMATURE GRANULOCYTES 0.3 % (0-5); LYMPHOCYTES 3.4 % (15-50); MCH 28.4 pg (26.0-34.0); MCHC 32.1 g/dL (31.0-37.0); MCV 88.4 fL (80.0-100.0); MEAN PLATELET VOLUME 10.6 fL (7.4-10.4); MONOCYTES 10.9 % (2-11); NEUTROPHILS 82.8 % (40-80); PLATELET COUNT 228 10x3/uL (130-400); RBC 3.35 10x6/uL (4.20-6.10); RDW 14.7 % (11.5-14.5); WBC 12.8 10x3/uL (4.8-10.8)
--- NOTE | 2019-10-17 23:30 | NUR ---
DR TRIXIE NORWOOD, UPDATED ON PT STATUS, NEW ORDERS RECEIVED.
[2019-10-17 23:45] LABS: CKMB 3.4 U/L (0.0-3.6); CREATINE KINASE 144 UL (21-232)
[2019-10-17 23:53] LABS: TROPONIN-I 10.715 ng/mL (0.000-0.060)
[2019-10-18] VITALS (24 sets, daily range): BP systolic 98–138; BP diastolic 34–58
--- NOTE | 2019-10-18 00:03 | NUR ---
DR ABAD PAGED REGARDING LAB RESULTS, UPDATED ON PT STATUS, NO NEW ORDERS RECEIVED.
--- NOTE | 2019-10-18 02:27 | NUR ---
DCED TRIALYSIS CATH PER MD ORDERS
[2019-10-18 05:34] LABS: ALBUMIN 2.3 g/dL (3.4-5.0); ALKALINE PHOSPHATASE 58 U/L (30-120); ALT (SGPT) 68 U/L (10-68); BILIRUBIN - TOTAL 0.97 mg/dL (0.2-1.3); CALC OSMOLALITY 300 mosm/kg (275-300); CALCIUM 8.1 mg/dL (8.5-10.1); CARBON DIOXIDE 20.2 mmol/L (21.0-32.0); CHLORIDE - SERUM 99 mmol/L (98-107); CKMB 2.8 U/L (0.0-3.6); CREATINE KINASE 137 UL (21-232); CREATININE - SERUM 3.1 mg/dL (0.6-1.3); GLUCOSE 162 mg/dL (74-106); MAGNESIUM - SERUM 2.5 mg/dL (1.8-2.4); POTASSIUM - SERUM 4.1 mmol/L (3.5-5.1); PROTEIN - SERUM 5.8 g/dL (6.4-8.2); SODIUM 133 mmol/L (136-145); UREA NITROGEN 98 mg/dL (7-18); eGFR NON AFRICAN AMERICAN 21 mL/min (90-120)
[2019-10-18 06:26] LABS: BASOPHILS 0.2 % (0-2); EOSINOPHILS 2.1 % (0-7); HEMATOCRIT 29.6 % (42.0-54.0); HEMOGLOBIN 9.5 g/dL (13.5-17.5); IMMATURE GRANULOCYTES 0.2 % (0-5); LYMPHOCYTES 4.5 % (15-50); MCH 28.7 pg (26.0-34.0); MCHC 32.1 g/dL (31.0-37.0); MCV 89.4 fL (80.0-100.0); MEAN PLATELET VOLUME 11.1 fL (7.4-10.4); MONOCYTES 10.3 % (2-11); NEUTROPHILS 82.7 % (40-80); PLATELET COUNT 260 10x3/uL (130-400); RBC 3.31 10x6/uL (4.20-6.10); WBC 13.1 10x3/uL (4.8-10.8)
--- NOTE | 2019-10-18 08:02 | OP ---
PATIENT NAME: ISIS VALE MEDICAL RECORD: [id number] :41 LOCATION:[facility] ADMISSION DATE:10/11/19 SURGEON: EDI LIRA MD DATE OF OPERATION: 10/11/2019 SURGEON: Edi Lira MD PROCEDURE PERFORMED: Right carotid endarterectomy. PREOPERATIVE DIAGNOSIS: Carotid stenosis with TIA. POSTOPERATIVE DIAGNOSIS: Carotid stenosis with TIA. ANESTHESIA: General endotracheal anesthesia. ESTIMATED BLOOD LOSS: 10 mL. COMPLICATIONS: None. SPECIMENS: Plaque. CONDITION: Stable. DISPOSITION: CVICU. OPERATIVE FINDINGS: 1. Circumferential severe plaque in the internal carotid artery with plaque feathering well distally and a CorMatrix patch closure. 2. Neurologically intact to CVICU. OPERATIVE INDICATION: Right hemispheric TIA with left facial and left leg numbness greater than 3 months. PROCEDURE IN DETAIL: The patient's previous CT scan from 2016 revealed that the patient had significant worsening since then. The patient was prepped and draped. An oblique incision was made. Subcutaneous tissue was divided. The patient had a very thick neck at the upper end. The muscle layer was divided to allow access to the distal internal carotid. Hypoglossal nerve was held out of harm's way. Common carotid, external carotid, thyroid branch, and distal internal carotid were dissected out, encircled with vessel loops. Heparin was given. After the heparin had circulated, backbleeding in the internal carotid was controlled with a bulldog clamp, inflow with a vascular clamp, and backbleeding in the external carotid and thyroid branch with the vessel loops. For 2 minutes, the EEG and cerebral oximetry remained unchanged, therefore the arteriotomy was begun in the common carotid artery and taken out through the region of plaque into a relatively normal region of internal carotid. The plaque was divided in the common carotid artery with an eversion endarterectomy of the heavily calcified plaque from the external carotid and then the plaque feathered well distally. Thorough irrigation was undertaken. All bits of loose debris were removed. Backbleeding pressure was significant. The endarterectomy bed was clean. One interrupted suture at the base in the common carotid artery where the plaque had on dividing the plaque. The patch was fashioned to the appropriate size and sutured along the edge of the arteriotomy. Prior to completing the anastomosis, backbleeding was allowed from all 3 major vessels and the endarterectomy bed was again flushed with saline. Anastomosis was OPERATIVE REPORT [id number] ISIS VALE completed. Flow was restored first to the external carotid and then to the internal carotid. Interrupted patch sutures were placed. Hemostasis was assured. Protamine was given. Thorough irrigation was undertaken. A drain was placed through a separate stab wound. Wound was closed in 3 layers. Dermabond to the skin. Anesthesia was reversed. The patient neurologically intact to the ICU. NTS:[id number] Voice Confirmation ID: [id number] DOCUMENT ID: [id number] EDI LIRA MD at 0802 CC: LAKISHA GALVEZ MD [id number] DICTATION DATE: 10/11/19 1542 [place] SEAMER: 10/12/19 0023 ADM IN [facility] [address] [place] [address]
--- NOTE | 2019-10-18 08:14 | NUR ---
0730 PT RECIEVED ALERT AND ORIENTED VSS DENIES PAIN PREVIOUS R IJ SITE WITH BLOODY DRESSING AND PRESSURE BAG PRESENT, DRESSING CHANGED AND PRESSURE BAG REAPPLIED, SUBCLAVIAN CVL NOTED TO NOT FLUSH OR DRAW, DR RIVAS NOTIFIED 0800 UNABLE TO GET PIV AT THIS TIME, ATTEMPED TO CALL VASCULAR ACCESS
--- NOTE | 2019-10-18 08:19 | OP ---
PATIENT NAME: ISIS VALE MEDICAL RECORD: [id number] :41 [facility] ADMISSION DATE:10/11/19 SURGEON: LAKISHA GALVEZ MD DATE OF OPERATION: 10/14/2019 PROCEDURE: Left heart catheterization, selective coronary angiography, right femoral artery approach. CATHETERS: 7-Kazakh sheath. This is a very calcific right femoral artery. As well as an Amplatz catheter at the base of the port. Will fix her left leg at a later date. FINDINGS: Left ventriculography in 30-degree YOUNG view shows inferior-inferior basilar hypokinesis. Overall, function 40%. CORONARY ANATOMY: LEFT MAIN: Left main is free of disease. LAD: Fills for a short period of time and is filling via competitive flow. CIRCUMFLEX: Has restenosis in the previous balloon angioplasty, restenosis 90%. RIGHT CORONARY ARTERY: Totally occluded, fills via left to right collaterals and the LAD is widely patent throughout its course. Saphenous vein graft to the diagonal is widely patent throughout its course. DESCRIPTION OF PROCEDURE: After a 5-Kazakh sheath was exchanged for a 7-Kazakh sheath, EBU guiding catheter provided good guiding catheter support followed by 300 cm Whisper wire. We used a 2.5 and 3.0 balloon up and down the circumflex vessel, this went from 90% stenosis to about 10% residual. We attempted to place a 15 and 12 mm stent; however, we were unable to cross this vessel in an area of previous despite adequate pre-deployment dilatation. Successful PTCA stenting with 20% residual of the circumflex. Sheath closed with ExoSeal device. The patient was previously on Plavix. Heparin was used during the case. TRANSINT:[id number] Voice Confirmation ID: [id number] DOCUMENT ID: [id number] LAKISHA GALVEZ MD at 0819 CC: [id number] DICTATION DATE: 10/14/19 1231 MANAGER BRIDGE: 10/14/19 1622 [place] [address]
--- NOTE | 2019-10-18 09:41 | NUR ---
DR CHRISTIAN NURSE LULÚ AND DR ALLEN AWARE OF CONTINUED BLEEDING, DR MARCUM ALSO NOTIFIED LULÚ AND DR RIVAS AWARE OF CVL NOT FLUSHING/DRAWING, AWAITING IV PLACEMENT BY VASCULAR ACCESS
--- NOTE | 2019-10-18 09:46 | NUR ---
PLAVIX AND ASA GIVEN PER DR CHRISTIAN NURSE
[2019-10-18 10:01] LABS: CKMB 2.2 U/L (0.0-3.6); CREATINE KINASE 118 UL (21-232)
[2019-10-18 10:05] LABS: TROPONIN-I 6.846 ng/mL (0.000-0.060)
--- NOTE | 2019-10-18 11:00 | NUR ---
PIV TO LFA BY VASCULAR ACCESS NURSE
--- NOTE | 2019-10-18 11:13 | NUR ---
Nutrition Follow-up: Not eating well. Noted trialysis catheter placed 10/16 and HD done (-2 L); catheter now removed 2/2 bleeding. -BM; +flatus. Diet: Diabetic Wt: 237.6# (10/16) Labs noted: Na 133, Glu 162, Ca 8.1, Mg 2.5, Alb 2.3 Meds reviewed -Encourage PO intake and honor food preferences within diet restrictions. -Monitor wt. -RD following.
--- NOTE | 2019-10-18 12:36 | NUR ---
1130 CHG BATH AND LINEN CHANGE DONE, DRESSING TO R TRIALYSIS SITE CHANGED
[2019-10-18 15:17] LABS: ANION GAP 14.2 mmol/L (8-16); CALCIUM 7.8 mg/dL (8.5-10.1); CARBON DIOXIDE 21.1 mmol/L (21.0-32.0); POTASSIUM - SERUM 4.3 mmol/L (3.5-5.1)
--- NOTE | 2019-10-18 15:25 | NUR ---
1500 PRESSURE BAG REMOVED DRESSING HAS BEEN INTACT SINCE BATH WITH NO SIGNS OF BLEEDING, DR MARCUM IN UNIT AND ASSESSED
[2019-10-18 17:30] LABS: BASOPHILS 0.3 % (0-2); EOSINOPHILS 4.3 % (0-7); HEMOGLOBIN 7.7 g/dL (13.5-17.5); IMMATURE GRANULOCYTES 0.3 % (0-5); LYMPHOCYTES 3.6 % (15-50); MCH 28.7 pg (26.0-34.0); MCHC 32.9 g/dL (31.0-37.0); MEAN PLATELET VOLUME 10.3 fL (7.4-10.4); MONOCYTES 9.3 % (2-11); NEUTROPHILS 82.2 % (40-80); PLATELET COUNT 221 10x3/uL (130-400); RBC 2.68 10x6/uL (4.20-6.10); RDW 14.7 % (11.5-14.5); WBC 11.6 10x3/uL (4.8-10.8)
[2019-10-18 17:40] LABS: HEMATOCRIT 23.4 % (42.0-54.0)
[2019-10-18 17:41] LABS: MCV 87.3 fL (80.0-100.0)
--- NOTE | 2019-10-18 17:52 | NUR ---
PAGED EXTRUDER TENDER RENAL TO NOTIFY OF H&H
--- NOTE | 2019-10-18 19:00 | NUR ---
REPORT RECEIVED FROM OFF GOING NURSE. RECEIVED PT LAYING IN BED WITH BIPAP ON. NO NEEDS VOICED AT THIS TIME. ASSESSMENT COMPLETED, SEE FLOWSHEET.
--- NOTE | 2019-10-18 21:00 | NUR ---
SPOKE WITH DR RIVAS REGARDING PT'S LAB WORK FROM EARLIER IN THE DAY. SHE REQUESTED I DRAW HIS MORNING LABS EARLY (ABOUT 3AM). I UPDATED HER ON PT STATUS. NO NEW ORDERS.
[2019-10-19] VITALS (23 sets, daily range): BP systolic 107–146; BP diastolic 32–53
[2019-10-19 04:25] LABS: BASOPHILS 0.2 % (0-2); EOSINOPHILS 9.2 % (0-7); IMMATURE GRANULOCYTES 0.2 % (0-5); LYMPHOCYTES 5.6 % (15-50); MCH 28.3 pg (26.0-34.0); MCHC 32.7 g/dL (31.0-37.0); MCV 86.6 fL (80.0-100.0); MEAN PLATELET VOLUME 10.9 fL (7.4-10.4); NEUTROPHILS 74.8 % (40-80); PLATELET COUNT 233 10x3/uL (130-400); RBC 2.54 10x6/uL (4.20-6.10); RDW 14.8 % (11.5-14.5)
[2019-10-19 04:39] LABS: ALBUMIN 1.9 g/dL (3.4-5.0); ANION GAP 10.8 mmol/L (8-16); BILIRUBIN - TOTAL 0.77 mg/dL (0.2-1.3); CALCIUM 7.8 mg/dL (8.5-10.1); CARBON DIOXIDE 24.2 mmol/L (21.0-32.0); MAGNESIUM - SERUM 2.8 mg/dL (1.8-2.4); PROTEIN - SERUM 5.1 g/dL (6.4-8.2)
[2019-10-19 04:44] LABS: HEMOGLOBIN 7.2 g/dL (13.5-17.5)
--- NOTE | 2019-10-19 05:15 | NUR ---
SPOKE WITH DR RIVAS AND DISCUSSED PT'S MORNING LAB WORK. ORDERS RECEIVED TO TRANSFUSE [address] LIRA UPDATED ON NEW ORDERS.
--- NOTE | 2019-10-19 07:41 | NUR ---
PT RECIEVED ALERT AND ORIENTED VSS DENIES PAIN R RADIAL A LINE ZEROED, GOOD WAVEFORM, R CEA INCISION CDI, L IJ TRIALYSIS SITE DRESSING CDI, L SUBCLAVIAN DOES NOT FLUSH/DRAW, MARTIN DRAINING YELLOW URINE, CALL LIGHT WITHIN REACH, SPOKE WITH DR LIRA THAT PREVIOUS NURSE STATED DR RIVAS WANTED SURGERY TO PLACE ANOTHER DIALYSIS ACCESS, HE STATED GET XRAY, SPEAK WITH CARDIOLOGY ABOUT STOPPING PLAVIX AND KEEP NPO AND HE WOULD PLACE ACCESS
--- NOTE | 2019-10-19 08:17 | NUR ---
spoke with phyllis morrison from cardiology, stated she would talk with dr jimenez and call back about plavix
--- NOTE | 2019-10-19 09:52 | NUR ---
PT TO OR WITH OR TEAM
[2019-10-19 11:10] LABS: HEPATITIS C ANTIBODY <0.1 S/CO RAT (0.0-0.9)
[2019-10-19 12:11] LABS: PROCALCITONIN 0.71 ng/mL (0.00-0.08)
--- NOTE | 2019-10-19 12:13 | NUR ---
1100 PT RECIEVED BACK TO ROOM WITH R SUBCLAVIAN TRIALYSIS CATHETER PRESENT, PRESSURE DRESSING TO L SUBCLAVIAN PREVIOUS CVL SITE, PT ALERT AND ORIENTED AND DENIES ALL NEEDS
--- NOTE | 2019-10-19 14:27 | NUR ---
PT SAT ON SIDE OF BED WITH THERAPY, TOLERATED WELL AND WAS ASSISTED BACK TO BED
--- NOTE | 2019-10-19 17:21 | NUR ---
1600 DIALYSIS BEGAN, DIALYSIS NURSE IN BEDSIDE
--- NOTE | 2019-10-19 19:00 | NUR ---
REPORT RECEIVED FROM OFF GOING NURSE, RECEIVED PT RESTING IN BED WITH DIALYSIS NURSE PRESENT IN ROOM. WAS INFORMED BY DIALYSIS NURESE PRIOR TO THEM LEAVING THAT THEY WERE ABLE TO GET 3 LITERS OFF. NO NEEDS VOICED BY PATIENT AT THIS TIME.
[2019-10-20] VITALS (18 sets, daily range): BP systolic 115–143; BP diastolic 31–61
[2019-10-20 04:03] LABS: ANION GAP 11.4 mmol/L (8-16); BILIRUBIN - TOTAL 0.87 mg/dL (0.2-1.3); CALCIUM 7.7 mg/dL (8.5-10.1); CARBON DIOXIDE 24.2 mmol/L (21.0-32.0); MAGNESIUM - SERUM 2.5 mg/dL (1.8-2.4); POTASSIUM - SERUM 3.6 mmol/L (3.5-5.1); PROTEIN - SERUM 5.5 g/dL (6.4-8.2); VANCOMYCIN - RANDOM 11.5 ug/mL (10.0-20.0)
[2019-10-20 04:16] LABS: CREATININE - SERUM 2.1 mg/dL (0.6-1.3)
--- NOTE | 2019-10-20 07:00 | NUR ---
REPORT RECEIVED FROM OFF-GOING NURSE. PATIENT ALERT, WEARING BIPAP.
--- NOTE | 2019-10-20 07:55 | NUR ---
SHIFT ASSESSMENT PERFORMED. PATIENT BECOMES SOB WITH ANY EXERTION. SEE ASSESSMENT.
[2019-10-20 09:13] LABS: BASOPHILS 0.2 % (0-2); HEMATOCRIT 25.5 % (42.0-54.0); HEMOGLOBIN 8.3 g/dL (13.5-17.5); IMMATURE GRANULOCYTES 0.5 % (0-5); LYMPHOCYTES 4.5 % (15-50); MCH 28.3 pg (26.0-34.0); MCHC 32.5 g/dL (31.0-37.0); MEAN PLATELET VOLUME 10.5 fL (7.4-10.4); MONOCYTES 9.3 % (2-11); NEUTROPHILS 77.5 % (40-80); PLATELET COUNT 269 10x3/uL (130-400); RBC 2.93 10x6/uL (4.20-6.10); RDW 14.9 % (11.5-14.5); WBC 13.7 10x3/uL (4.8-10.8)
[2019-10-20 10:12] LABS: IMMUNOGLOBULIN E 270 IU/mL (6-495)
--- NOTE | 2019-10-20 11:50 | NUR ---
FSBS 283. COVERED WITH 10 UNITS REGULAR INSULIN. LUNCH TRAY OFFERED. REFUSED AT THIS TIME. DR. PADILLA HERE. POSSIBLE DIALYSIS TODAY.
--- NOTE | 2019-10-20 11:59 | NUR ---
LASIX 60MG IVP ONE TIME ORDER GIVEN. CURRENT URINE OUTPUT =245ML VIA MARTIN.
--- NOTE | 2019-10-20 12:37 | NUR ---
Nutrition Follow-up: Pt reports appetite/PO intake improving; ate >=50% of breakfast this AM. New dialysis cath placed yesterday; also had HD (-3 L). -BM; +flatus. Diet: Diabetic Wt: 231.4# (10/19) Labs noted: Na 133, K+ 3.6, Glu 169, Ca 7.7, Mg 2.5, Alb 2.0 Meds noted: Protonix, Colace, Humulin -Encourage PO intake and honor food preferences within diet restrictions. -Monitor wt. -RD following.
--- NOTE | 2019-10-20 14:00 | NUR ---
REQUESTS LUNCH TRAY. ONLY ATE PEACHES AND SMALL AMOUNTOF MILK. SOB WITH ANY EXERTION.
--- NOTE | 2019-10-20 14:36 | NUR ---
REHAB PRESCREEN Rehab referral received and chart reviewed. Mr. Jorge is a good candidate for Acute Inpatient Rehab. He has [facility] as his healthcare provider which requires a prior authorization. OT evaluation has been ordered and is pending. We will begin preauth process when OT evaluation is completed. Thank you for this referral! Erinn Parkinson, DETENTION OFFICER Rehab PD
--- NOTE | 2019-10-20 16:00 | OP ---
PATIENT NAME: ISIS VALE MEDICAL RECORD: [id number] :43 LOCATION:DJoeNAEI D.CV07 ADMISSION DATE:10/11/19 SURGEON: EDI SUÁREZ MD DATE OF OPERATION: 10/19/2019 SURGEON: Edi Suárez MD. PROCEDURE PERFORMED: Insertion of right subclavian dialysis access catheter. INDICATION: Acute kidney failure. COMPLICATIONS: None. SPECIMEN: None. BLOOD LOSS: Minimal. PROCEDURE: The patient in the operating suite with intravenous sedation and monitored by anesthesia. Right chest was prepped and draped. Right subclavian vein was cannulated with a single stick. Guidewire was passed under fluoroscopic control. The skin incision was enlarged and 2 dilators were passed carefully from the subclavian into the superior vena cava. The triple lumen dialysis access catheter was then placed through the appropriate position, sutured at the skin level. Good blood return in all 3 lumens and was flushed and then the appropriate amount of Hep-Lock solution was placed within the two dialysis lumens. No apparent complications. Chest x-ray in ICU. TRANSINT:[id number] Voice Confirmation ID: [id number] DOCUMENT ID: [id number] EDI SUÁREZ MD at 1600 CC: LUIS RIVAS DO [id number] DICTATION DATE: 10/19/19 1100 PHOTOGRAPHY AND PRINTS CURATOR: 10/19/19 193 ADM IN [facility] [address] [place] [address]
--- NOTE | 2019-10-20 16:45 | NUR ---
HERE. ASSISTED WITH DIABETIC DIET. APPETITE BETTER. ON N/C AT 4 L/M FOR MEAL. SPO2 91%. 94% ON BIPAPA.
--- NOTE | 2019-10-20 17:00 | NUR ---
RIGHT RADIAL ARTERIAL LINE D/C. OCCLUSIVE DRESSING APPLIED. REFUSED BATH TODAY AND REFUSED ORAL CARE.
--- NOTE | 2019-10-20 20:20 | NUR ---
HS MEDS TOLERATED WELL, FRESH WATER TO BEDSIDE. REQUESTS HS SNACK, 100% EATEN.
[2019-10-21] VITALS (24 sets, daily range): BP systolic 110–137; BP diastolic 51–90
[2019-10-21 05:52] LABS: BASOPHILS 0.3 % (0-2); EOSINOPHILS 8.7 % (0-7); HEMATOCRIT 24.3 % (42.0-54.0); HEMOGLOBIN 7.9 g/dL (13.5-17.5); IMMATURE GRANULOCYTES 0.9 % (0-5); LYMPHOCYTES 6.9 % (15-50); MCH 28.6 pg (26.0-34.0); MCHC 32.5 g/dL (31.0-37.0); MEAN PLATELET VOLUME 10.3 fL (7.4-10.4); MONOCYTES 9.8 % (2-11); NEUTROPHILS 73.4 % (40-80); PLATELET COUNT 290 10x3/uL (130-400); RBC 2.76 10x6/uL (4.20-6.10); RDW 15.1 % (11.5-14.5)
[2019-10-21 06:06] LABS: ANION GAP 10.2 mmol/L (8-16); CARBON DIOXIDE 26.4 mmol/L (21.0-32.0); CREATININE - SERUM 2.3 mg/dL (0.6-1.3); MAGNESIUM - SERUM 2.7 mg/dL (1.8-2.4); PHOSPHOROUS 3.6 mg/dL (2.5-4.9); POTASSIUM - SERUM 3.6 mmol/L (3.5-5.1)
--- NOTE | 2019-10-21 06:19 | NUR ---
REC'D CALL FROM ROB, UPDATE PROVIDED. PLANS FOR DIALYSIS TODAY.
--- NOTE | 2019-10-21 08:23 | NUR ---
0700 PT RECIEVED ALERT AN DORIENTD 4L NC R SUBCLAVIAN TRIALYSIS CDI MARTIN DRAINING YELLOW URINE, DENIES ALL NEEDS 0820 ATE 100% BREAKFAST AND PLACED ON BIPAP PER REQUEST
--- NOTE | 2019-10-21 09:52 | NUR ---
PT NREPOSITIONED, DIALYSIS NURSE AT BEDSIDE, STATES MAXIPIME WILL DIALYZE OUT, WILL ADMIN AFTER DIALYSIS
--- NOTE | 2019-10-21 11:55 | NUR ---
OT NOTE: DIALYSIS IN AM. FERMÍN GABRIEL, OTR/L
--- NOTE | 2019-10-21 13:22 | OP ---
PATIENT NAME: ISIS VALE MEDICAL RECORD: [id number] :43 LOCATION:D.CVI D.CV07 ADMISSION DATE:10/11/19 SURGEON: LUIS MARCUM MD DATE OF OPERATION: 10/17/2019 PREOPERATIVE DIAGNOSES: 1. Acute renal failure. 2. Pneumonia. 3. Status post carotid endarterectomy. 4. Coronary artery disease. POSTOPERATIVE DIAGNOSES: 1. Acute renal failure. 2. Pneumonia. 3. Status post carotid endarterectomy. 4. Coronary artery disease. PROCEDURES: 1. Left IJ Trialysis catheter placement. 2. Right radial art line placement. SURGEON: Luis Marcum MD REPORT OF PROCEDURE: The patient's left neck was prepped and draped in sterile fashion. A total of 5 cc of 1% lidocaine with epinephrine was infused into the surrounding tissues. A needle was used to cannulate the left subclavian vein using ultrasound guidance. There was some difficulty passing the wire, but eventually we were able to get it to pass. Once inside, we were able to pass the dilator followed by the Trialysis catheter. The catheter aspirated nonpulsatile dark blood and flushed easily in all 3 ports. This was sutured into place with 4-0 nylon and dressed appropriately. The patient's left wrist was then prepped and draped. A total of 1 cc of 1% lidocaine was infused into the subcutaneous tissues. I was able to access the artery a few times, but was never able to cannulate the vessel. Eventually, we just lost the pulse in that wrist from some of the swelling and irritation, so we discontinued attempts on the left side and went to the right wrist. This was prepped and draped in sterile fashion. Another 1 cc of 1% lidocaine was infused into the subcutaneous tissues. We were able to access the right radial artery and cannulated with ease. A catheter was sutured into place with 4-0 nylons. The patient had a good flow reading present and tolerated the procedure well. COMPLICATIONS: None. CONDITION: Stable. ANESTHESIA: Local. BLOOD LOSS: 30 mL. Procedure done at the bedside. TRANSINT:[id number] Voice Confirmation ID: [id number] DOCUMENT ID: [id number] OPERATIVE REPORT [id number] KAVINISIS LUIS HARRISON MD at 1322 CC: [id number] DICTATION DATE: 10/17/19 1537 LIGHT CLEANER: 10/17/19 2332 ADM IN [facility] [address] [place] [id number]
--- NOTE | 2019-10-21 13:55 | NUR ---
DIALYSIS COMPLETE, REMOVED 3L
[2019-10-22] VITALS (23 sets, daily range): BP systolic 95–144; BP diastolic 39–77
[2019-10-22 07:27] LABS: BASOPHILS 0.4 % (0-2); EOSINOPHILS 9.5 % (0-7); HEMATOCRIT 26.6 % (42.0-54.0); HEMOGLOBIN 8.5 g/dL (13.5-17.5); IMMATURE GRANULOCYTES 1.4 % (0-5); LYMPHOCYTES 6.9 % (15-50); MCH 28.4 pg (26.0-34.0); MEAN PLATELET VOLUME 9.6 fL (7.4-10.4); NEUTROPHILS 73.8 % (40-80); PLATELET COUNT 310 10x3/uL (130-400); RBC 2.99 10x6/uL (4.20-6.10); RDW 14.9 % (11.5-14.5)
[2019-10-22 07:44] LABS: ANION GAP 14.4 mmol/L (8-16); CALCIUM 7.6 mg/dL (8.5-10.1); CARBON DIOXIDE 24.3 mmol/L (21.0-32.0); CREATININE - SERUM 2.1 mg/dL (0.6-1.3); MAGNESIUM - SERUM 2.5 mg/dL (1.8-2.4); POTASSIUM - SERUM 3.7 mmol/L (3.5-5.1)
--- NOTE | 2019-10-22 10:00 | NUR ---
Nutrition Follow-up: Pt reports appetite/PO intake much improved. -BM; +flatus. HD yesterday (-3 L). Diet: Diabetic Wt: 221.5# (10/21) Labs noted: Na 134, K+ 3.7, Glu 179, Ca 7.6, Mg 2.5 Meds noted: Protonix, Colace, Humulin -Encourage PO intake and honor food preferences within diet restrictions. -Monitor wt. -RD following.
--- NOTE | 2019-10-22 12:00 | NUR ---
OT NOTE: PT COMPLETED BED MOB SIDE ROLLING WITH MIN/MOD A. PT COMPLETED SUPINE TO SIT WITH MIN/MOD A. PT COMPLETED SIT TO STAND WITH MIN/MOD A. PT COMPLETED BED TO CHAIR WITH MIN/MOD A. PT COMPLETED BUE AROM WITH FUNCTIONAL TASKS. PT IS COOPERATIVE AND MOTIVATED TO RETURN TO OF. [phone] THANK YOU,DUANE VANEGAS
--- NOTE | 2019-10-22 13:34 | NUR ---
OT NOTE: PERFORMED SIT TO STAND WITH MOD ASSIST X 2; STANDING BALANCE FAIR; TOLERATED A FEW MIN IN STANDING; TRANSFER FROM CHAIR TO BED WITH MOD ASSIST X 2; UE AROM EXS ; SIT TO SUPINE WITH VERY MINIMAL ASSIST. DOING VERY WELL. RECOMMEND IP REHAB FERMÍN GABRIEL, OTR/L [id number]
[2019-10-22 17:50] LABS: ANION GAP 13.1 mmol/L (8-16); CALCIUM 7.8 mg/dL (8.5-10.1); CARBON DIOXIDE 26.6 mmol/L (21.0-32.0); CREATININE - SERUM 2.4 mg/dL (0.6-1.3); POTASSIUM - SERUM 3.7 mmol/L (3.5-5.1)
--- NOTE | 2019-10-22 19:00 | NUR ---
REPORT RECEIVED. INITIAL ASSESSMENT COMPLETE. PT AWAKE ALERT AND ORIENTED X 4. RESP EVEN NONLABORED O2 PER NC 4.5LPM WITH O2 SAT LOW MID 90'S. ENCOURAGED PT TO TCDB HE VERBALIZES GOOD UNDERSTANDING. CM READING CONTROLLED A FLUTTER WILL CONTINUE TO MONITOR. ALARMS ON AND AUDIBLE. BED LOW POSITION ASSISTED REPOSITIONING PT WILL CONTINUE TO MONITOR
[2019-10-23] VITALS (24 sets, daily range): BP systolic 94–136; BP diastolic 41–75
--- NOTE | 2019-10-23 00:20 | NUR ---
ANSWERED PTS CALL LIGHT HE WANTS HELP REPOSITIONING. ASKED IF PT WAS FEELING SOB HE STATED HE WAS. REPOSITIONED AND RT JOHN PLACED PT ON BIPAP. WILL CONTINUE TO MONITOR
--- NOTE | 2019-10-23 00:26 | NUR ---
PLACED PT ON BIPAP PER SOB //30% FIO2 TOLERATED APPLICATION WELL
--- NOTE | 2019-10-23 03:00 | NUR ---
REASSESSMENT COMPLETE PT CONTINUES ON BIPAP 30% WILL CONTINUE TO MONITOR
--- NOTE | 2019-10-23 04:00 | NUR ---
RADIOLOGY HERE FOR CHEST XRAY REPOSITIONED PT FOR COMFORT
--- NOTE | 2019-10-23 04:51 | NUR ---
PT BACK TO NC 4.5LPM AFTER RESP TREATMENT PER RT
[2019-10-23 06:48] LABS: BASOPHILS 0.3 % (0-2); EOSINOPHILS 11.1 % (0-7); HEMATOCRIT 25.9 % (42.0-54.0); HEMOGLOBIN 8.4 g/dL (13.5-17.5); IMMATURE GRANULOCYTES 1.6 % (0-5); LYMPHOCYTES 7.3 % (15-50); MCH 28.6 pg (26.0-34.0); MCHC 32.4 g/dL (31.0-37.0); MCV 88.1 fL (80.0-100.0); MEAN PLATELET VOLUME 9.7 fL (7.4-10.4); MONOCYTES 7.1 % (2-11); NEUTROPHILS 72.6 % (40-80); PLATELET COUNT 355 10x3/uL (130-400); RBC 2.94 10x6/uL (4.20-6.10); RDW 14.9 % (11.5-14.5); WBC 17.4 10x3/uL (4.8-10.8)
[2019-10-23 07:36] LABS: ALBUMIN 1.9 g/dL (3.4-5.0); ANION GAP 12.8 mmol/L (8-16); BILIRUBIN - TOTAL 0.87 mg/dL (0.2-1.3); CARBON DIOXIDE 27.6 mmol/L (21.0-32.0); CREATININE - SERUM 2.2 mg/dL (0.6-1.3); MAGNESIUM - SERUM 2.4 mg/dL (1.8-2.4); PHOSPHOROUS 3.5 mg/dL (2.5-4.9); POTASSIUM - SERUM 3.4 mmol/L (3.5-5.1); PROTEIN - SERUM 5.5 g/dL (6.4-8.2)
--- NOTE | 2019-10-23 15:50 | NUR ---
R SUBCLAVIAN TRIALYSIS CATH. MANUAL PRESSURE HELD X 5 MIN. SITE DRESSED WITH 4X4 AND TEGADERM.
--- NOTE | 2019-10-23 19:20 | NUR ---
REPORT REC'D AND CARE ASSUMED, REC'D PT RESTING IN BED, O2 @ 3LITERS HIGH FLOW, PT MAEE, LEFT FOREARM PIV SALINE LOCKED, CM-AFLUTTER @ 95, PT COMPLAINS OF BEING HOT, OLD RIGHT NECK INCISION WITH SLIGHT EDEMA AND BRUISING, EDGES WELL APPROXIMATED, LEFT NECK WITH BRUISES FROM PREVIOUS LINE NOTED, GENERALIZED EDEMA, TEDS/SCDS INTACT AND ON, SCDS REMOVED FOR PT COMPLAINTS OF BEING TO WARM, WILL LOOK FOR A FAN FOR THE PT, BED IN LOW POSITION, CALL LIGHT IN REACH, DENIES FURTHER NEEDS.
--- NOTE | 2019-10-23 20:40 | NUR ---
FAN BROUGHT TO ROOM AND POSITIONED FOR PT COMFORT, PT REQUESTING TO BE PULLED UP IN BED, REPOSITIONED UP IN BED X 2 ASSISTS, VSS, PT DENIES FURTHER NEEDS, WILL MONITOR FOR CHANGES.
--- NOTE | 2019-10-23 22:00 | NUR ---
PT REQUESTING BIPAP BE PUT ON AND CURTAIN CLOSED TO BLOCK THE LIGHT FROM THE VOSS, FRESH ICE WATER PROVIDED ON REQUEST, DENIES FURTHER NEEDS.
[2019-10-24] VITALS (24 sets, daily range): BP systolic 95–131; BP diastolic 35–88
--- NOTE | 2019-10-24 06:15 | NUR ---
AM MEDS GIVEN, PT REFUSES BATH AT THIS TIME, PT REPOSITIONED UP IN BED FOR COMFORT.
--- NOTE | 2019-10-24 09:42 | MORECARE ---
CASE MANAGEMENT DISCHARGE SUMMARY PATIENT: ISIS AVLE UNIT: [id number] ADM DATE: 10/11/19 AGE: 74 : 43 SEX: M ROOM/BED: D[facility] AUTHOR: BRENDA,DOC PHYSICIAN: REFERRING PHYSICIAN: SALEEM GILMAN MD DATE OF SERVICE: 10/24/19 Discharge Plan Patient Name: ISIS VALE Facility: [facility]:[place] : 1945 Planned Disposition: Home Anticipated Discharge Date: Discharge Date: Expected LOS: Initial Reviewer: [email or web address] Initial Review Date: 10/11/2019 Generated: 10/24/19 10:42 am Comments DCP- Discharge Planning Updated by [email or web address]: Leyla Ramirez on 10/24/19 8:[address] CM MET WITH PATIENT TO DISCUSS OBTIONS FOR REHAB. CM DISCUSSED THE AVAILIBILITY OF REHAB AT A SNF OR IP REHAB. PT STATES HE WOULD LIKE TO HAVE IP REHAB AT [facility]. ELVIA SIGNED FOR IP REHAB AT [facility]. CM WILL CONTINUE ASSISTING WITH DC PLANS/ NEEDS. LEYLA RAMIREZ MSN,RN,CM DCP- Discharge Planning Updated by [email or web address]: Rhiannon Delgado on 10/15/19 6:[address] Patient is currently still using 02 @ 3L. He may need walk test for home 02. CM will continue to follow and assist as needed with discharge planning / needs. DCP- Discharge Planning Updated by [email or web address]: Rhiannon Delgado on 10/12/19 7:[address] Patient Name: ISIS VALE Admission Status: Elective Accout number: [id number] Admission Date: 10-11-2019 : 1945 Admission Diagnosis: Attending: CHANDNI LIRA Current LOS: 1 Anticipated DC Date: Planned Disposition: Home Primary Insurance: [facility] MEDICARE SOLUTIONS Discharge Planning Comments: CM met with patient to complete initial dc planning assessment. CM educated patient on the CM role and verbal consent given by patient to complete assessment. Patient lives at home with family. Patient is independent. At discharge patient plans to return home and feels this is a safe discharge. CM discussed availability of home health, rehab services, and medical equipment. Patient will have family to transport home. Patient denied known discharge needs at this time. CM will continue to follow and will assist as needed with dc plans/needs. Wood Grainer: Rhiannon Delgado DCPIA - Discharge Planning Initial Assessment Updated by [email or web address]: Rhiannon Delgado on 10/12/19 8:32 pm * Is the patient Alert and Oriented? Yes * How many steps to enter\exit or inside your home? * PCP BETO * Pharmacy [facility] - [facility] * Preadmission Environment Home with Family * ADLs Independent * Equipment Cane * List name and contact numbers for known caregivers / representatives who currently or will assist patient after discharge: SPENCER VALE - - [phone], * Verbal permission to speak to the caregivers and representatives has been obtained from the patient. No * Community resources currently utilized None * Additional services required to return to the preadmission environment? No * Can the patient safely return to the preadmission environment? Yes * Has this patient been hospitalized within the prior 30 days at any hospital? 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
[2019-10-24 10:28] LABS: BASOPHILS 0.3 % (0-2); EOSINOPHILS 11.3 % (0-7); HEMATOCRIT 26.4 % (42.0-54.0); HEMOGLOBIN 8.4 g/dL (13.5-17.5); IMMATURE GRANULOCYTES 1.3 % (0-5); LYMPHOCYTES 5.2 % (15-50); MCH 28.3 pg (26.0-34.0); MCHC 31.8 g/dL (31.0-37.0); MCV 88.9 fL (80.0-100.0); MEAN PLATELET VOLUME 9.3 fL (7.4-10.4); MONOCYTES 5.8 % (2-11); NEUTROPHILS 76.1 % (40-80); PLATELET COUNT 344 10x3/uL (130-400); RBC 2.97 10x6/uL (4.20-6.10)
[2019-10-24 10:36] LABS: ANION GAP 10.5 mmol/L (8-16); CALCIUM 7.9 mg/dL (8.5-10.1); CARBON DIOXIDE 27.1 mmol/L (21.0-32.0); CREATININE - SERUM 2.4 mg/dL (0.6-1.3); POTASSIUM - SERUM 3.6 mmol/L (3.5-5.1)
--- NOTE | 2019-10-24 19:00 | NUR ---
ASSESSMENT COMPLETED PER FLOWSHEET. PT A/O X4, DENIES ANY DISCOMFORT OR SOB AT THIS TIME. CALL LIGHT IN REACH. CPOC.
--- NOTE | 2019-10-24 23:00 | NUR ---
ASSISSTED TO BSC. PT VOIDS 550ML URINE. SMALL FORMED STOOL RESULTED. ANGELIQUE CARE PROVIDED. ASSISTED BACK TO BED. SOB NOTED WITH EXERTION.O2 SAT 94% VIA 3L HIGH FLOW. HOB UP. SIDE RAILS UP. CALL LIGHT IN REACH. CPOC.
[2019-10-25] VITALS (16 sets, daily range): BP systolic 89–132; BP diastolic 38–72
--- NOTE | 2019-10-25 04:35 | NUR ---
PT TO XR ASSISTED BY [employer] VIA WHEELCHAIR. PT XIMENA WELL. BACK TO ROOM ASSISTED TO CHAIR. PT XIMENA WELL THE TRANSFER. CALL LIGHT AND BST IN REACH. CPOC.
[2019-10-25 06:58] LABS: ALBUMIN 2.3 g/dL (3.4-5.0); ANION GAP 11.9 mmol/L (8-16); BILIRUBIN - TOTAL 0.79 mg/dL (0.2-1.3); CALCIUM 7.9 mg/dL (8.5-10.1); CARBON DIOXIDE 27.6 mmol/L (21.0-32.0); CREATININE - SERUM 2.3 mg/dL (0.6-1.3); POTASSIUM - SERUM 3.5 mmol/L (3.5-5.1); PROTEIN - SERUM 6.1 g/dL (6.4-8.2)
[2019-10-25 07:08] LABS: HEMATOCRIT 26.2 % (42.0-54.0); HEMOGLOBIN 8.3 g/dL (13.5-17.5); MCH 28.1 pg (26.0-34.0); MCHC 31.7 g/dL (31.0-37.0); MCV 88.8 fL (80.0-100.0); MEAN PLATELET VOLUME 9.4 fL (7.4-10.4); PLATELET COUNT 380 10x3/uL (130-400); RBC 2.95 10x6/uL (4.20-6.10); RDW 15.1 % (11.5-14.5); WBC 19.7 10x3/uL (4.8-10.8)
--- NOTE | 2019-10-25 08:54 | NUR ---
PT HAD LARGE BM AND VOIDED ON BSC.
[2019-10-25 10:11] LABS: ANISOCYTOSIS 1+; EOSINOPHILS 12 % (0-7); LYMPHOCYTES 3 % (15-50); MONOCYTES 12 % (2-11); NEUTROPHILS 72 % (40-80); PLATELET ESTIMATE NORMAL; POLYCHROMASIA 1+; TOXIC GRANULATION OCC
--- NOTE | 2019-10-25 10:21 | NUR ---
Nutrition Follow-up: Pt reports appetite fluctuation. Denies N/V/C/D. C/o mouth and throat burning. HD held. Awaiting placement. Diet: Diabetic PO intake: 66% avg x 9 meals Wt: 221.5# (10/23) Last BM: 10/24 Labs noted: Na 135, K+ 3.5, Glu 185, Ca 7.9, Alb 2.3 Meds noted: Lasix, Protonix, Colace, Humulin -Encourage PO intake and honor food preferences within diet restrictions. -Monitor wt. -RD following.
--- NOTE | 2019-10-25 12:26 | NUR ---
OT NOTE: PT UP IN CHAIR THIS AM. DOING MUCH BETTER. SIMPLE GROOMING WITH SET UP; DONNING GOWN WITH MIN ASSIST; EXT ASSIST WITH LE DRESSING DUE TO PAIN WHEN BENDING OVER AND DIFFICULTY MANAGING LEILANI HOSE. SIT TO STAND WITH MIN ASSIST; AMB IN ROOM WITH WALKER AND MIN ASSIST. PT AMB INTO HALLWAY GREATER THAN 50 FT TODAY WITH 1 REST BREAK REQUIRED..PT VERY FATIGUED WHEN RETURN TO BED. RECOMMEND IP REHAB FERMÍN GABRIEL, OTR/L [phone]
--- NOTE | 2019-10-25 14:06 | NUR ---
SPOKE WITH DR. MAJOR. ROBER TO TRANSFER TO REHAB OR FLOOR BED.
--- NOTE | 2019-10-25 17:15 | NUR ---
Rehab Note- Received call from Deep with [facility] that their medical csr Dr Dominguez had approved the patient an initial 7 day acute inpatient rehab stay, Auth #[id number], F/U will be Franki Crowley at [phone] Ext [phone], fax #[phone]. Discussed in IDT earlier today. Have spoken with Nilda the patient's nurse and also MARGE Jurado. Thank you for this referral! Cesia Zambrano RN Clinical Liaison, [facility] Rehab
--- NOTE | 2019-10-25 18:21 | NUR ---
PT ASSISTED TO BSC. CALL LIGHT IN REACH.
--- NOTE | 2019-10-25 19:04 | NUR ---
REPORT CALLED TO REHAB TO
--- NOTE | 2019-10-25 20:18 | NUR ---
PT TRANSFERRED TO REHAB [id number].
--- NOTE | 2019-10-26 08:17 | MORECARE ---
CASE MANAGEMENT DISCHARGE SUMMARY PATIENT: ISIS VALE UNIT: [id number] ADM DATE: 10/11/19 AGE: 74 : 43 SEX: M ROOM/BED: D[facility] AUTHOR: BRENDA,DOC PHYSICIAN: REFERRING PHYSICIAN: SALEEM GILMAN MD DATE OF SERVICE: 10/26/19 Discharge Plan Patient Name: ISIS VALE Facility: [facility]:[place] : 1945 Planned Disposition: Home Anticipated Discharge Date: Discharge Date: 10/25/2019 Expected LOS: Initial Reviewer: [email or web address] Initial Review Date: 10/11/2019 Generated: 10/26/19 9:16 am DCP- Discharge Planning Updated by [email or web address]: Leyla Ramirez on 10/24/19 8:[address] CM MET WITH PATIENT TO DISCUSS OBTIONS FOR REHAB. CM DISCUSSED THE AVAILIBILITY OF REHAB AT A SNF OR IP REHAB. PT STATES HE WOULD LIKE TO HAVE IP REHAB AT [facility]. ELVIA SIGNED FOR IP REHAB AT [facility]. CM WILL CONTINUE ASSISTING WITH DC PLANS/ NEEDS. LEYLA RAMIREZ MSN,RN,CM DCP- Discharge Planning Updated by [email or web address]: Rhiannon Delgado on 10/15/19 6:[address] Patient is currently still using 02 @ 3L. He may need walk test for home 02. CM will continue to follow and assist as needed with discharge planning / needs. DCP- Discharge Planning Updated by [email or web address]: Rhiannon Delgado on 10/12/19 7:[address] Patient Name: ISIS VALE Admission Status: Elective Accout number: [id number] Admission Date: 10-11-2019 : 1945 Admission Diagnosis: Attending: CHANDNI LIRA Current LOS: 1 Anticipated DC Date: Planned Disposition: Home Primary Insurance: [facility] MEDICARE SOLUTIONS Discharge Planning Comments: CM met with patient to complete initial dc planning assessment. CM educated patient on the CM role and verbal consent given by patient to complete assessment. Patient lives at home with family. Patient is independent. At discharge patient plans to return home and feels this is a safe discharge. CM discussed availability of home health, rehab services, and medical equipment. Patient will have family to transport home. Patient denied known discharge needs at this time. CM will continue to follow and will assist as needed with dc plans/needs. Roadway Technician: Rhiannon Delgado DCPIA - Discharge Planning Initial Assessment Updated by [email or web address]: Rhiannon Delgado on 10/12/19 8:32 pm * Is the patient Alert and Oriented? Yes * How many steps to enter\exit or inside your home? * PCP BETO * Pharmacy [facility] - [facility] * Preadmission Environment Home with Family * ADLs Independent * Equipment Cane * List name and contact numbers for known caregivers / representatives who currently or will assist patient after discharge: SPENCER VALE - - [phone], * Verbal permission to speak to the caregivers and representatives has been obtained from the patient. No * Community resources currently utilized None * Additional services required to return to the preadmission environment? No * Can the patient safely return to the preadmission environment? Yes * Has this patient been hospitalized within the prior 30 days at any hospital? No Coverage Notice Reviewer: [id number] Lizzette Ramirez Notice Issued Date-Time: 10/24/2019 9:20 Notice Type: Patient Choice Letter Notice Delivered To: Patient Relationship to Patient: Aquatic Performer Name: Delivery Method: HAND - Hand Delivered Nancy Days: Prior Verbal Notification: Recipient Understood Notice: Yes Recipient Signature: Yes Med Rec Note Co-signed by Attending: Coverage Notice Comment: [facility] IP REHAB Last DP export: 10/24/19 8:42 a Patient Name: ISIS VALE Page 26037 at 0817 All edits/amendments must be made on the electronic document DICTATION DATE: 10/26/19816 CATALOGUE MAKER: TONIO 10/26/19816 RPT#: [id number] DC DATE:10/25/19 STATUS: DIS IN [facility] [address] [place] [address] END OF REPORT
== END 2019-10-25 20:20 | DRG 37 ==
LOC: D.SDCHOLD 10-07 10:30 → D.CVICU 10-11 06:42 → D.SDCHOLD 10-11 11:00 → D.CVICU 10-11 12:54
PROVIDERS: Family Medicine Adult Medicine; Internal Medicine; Internal Medicine Cardiovascular Disease; Internal Medicine Interventional Cardiology; Internal Medicine Nephrology; Internal Medicine Pulmonary Disease; ADMIT Thoracic Surgery (Cardiothoracic Vascular Surgery); ATTEND Family Medicine
PROC: 03CK0ZZ Extirpation of Matter from Right Internal Carotid Artery, Open Approach (ICD-10-PCS; principal; 2019-10-11 12:00)
PROC: 4A023N7 Measurement of Cardiac Sampling and Pressure, Left Heart, Percutaneous Approach (ICD-10-PCS; 2019-10-14)
PROC: B2111ZZ Fluoroscopy of Multiple Coronary Arteries using Low Osmolar Contrast (ICD-10-PCS; 2019-10-14)
PROC: 02703ZZ Dilation of Coronary Artery, One Artery, Percutaneous Approach (ICD-10-PCS; 2019-10-14 11:00)
PROC: 03H433Z Insertion of Infusion Device into Left Subclavian Artery, Percutaneous Approach (ICD-10-PCS; 2019-10-17)
PROC: 03HB33Z Insertion of Infusion Device into Right Radial Artery, Percutaneous Approach (ICD-10-PCS; 2019-10-17)
PROC: 03H333Z Insertion of Infusion Device into Right Subclavian Artery, Percutaneous Approach (ICD-10-PCS; 2019-10-19)
DX: I65.21 Occlusion and stenosis of right carotid artery (principal); I21.4 Non-ST elevation (NSTEMI) myocardial infarction; A41.9 Sepsis, unspecified organism; J18.9 Pneumonia, unspecified organism; J96.01 Acute respiratory failure with hypoxia; N17.0 Acute kidney failure with tubular necrosis; I50.21 Acute systolic (congestive) heart failure; N17.9 Acute kidney failure, unspecified; N11.9 Chronic tubulo-interstitial nephritis, unspecified; I97.131 Postprocedural heart failure following other surgery; J44.1 Chronic obstructive pulmonary disease with (acute) exacerbation; I13.0 Hypertensive heart and chronic kidney disease with heart failure and stage 1 through stage 4 chronic kidney disease, or unspecified chronic kidney disease; R57.9 Shock, unspecified; I48.20 Chronic atrial fibrillation, unspecified; R20.0 Anesthesia of skin; I69.898 Other sequelae of other cerebrovascular disease; E78.5 Hyperlipidemia, unspecified; I25.10 Atherosclerotic heart disease of native coronary artery without angina pectoris; E11.40 Type 2 diabetes mellitus with diabetic neuropathy, unspecified; E11.51 Type 2 diabetes mellitus with diabetic peripheral angiopathy without gangrene; I70.209 Unspecified atherosclerosis of native arteries of extremities, unspecified extremity; Z95.1 Presence of aortocoronary bypass graft; Z79.4 Long term (current) use of insulin; Z87.891 Personal history of nicotine dependence; N18.9 Chronic kidney disease, unspecified; D64.9 Anemia, unspecified; N40.0 Benign prostatic hyperplasia without lower urinary tract symptoms; D72.829 Elevated white blood cell count, unspecified

== ENCOUNTER 2019-10-25 16:19 | Inpatient (IN) | payer MEDICARE ==
[~2019-10-25] VITALS: Ht 179.1 cm; Wt 106.1 kg
[~2019-10-25 16:19] MED LIST changes: +GLUCOPHAGE1000 MG PO; +GLUCOPHAGE500 MG
--- NOTE | 2019-10-25 20:32 | NUR ---
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
[2019-10-25 21:14] VITALS: BP 114/52
[2019-10-26 00:44] VITALS: BP 114/52; BMI 33.2
--- NOTE | 2019-10-26 03:30 | NUR ---
PT ASLEEP,AROUSES EASILY TO VOICE, RESPIRATIONS EVEN/UNLABORED, NO IMMEDIATE NEEDS NOTED, FALL PRECAUTIONS IN PLACE, FLUIDS/CALL LIGHT WITHIN REACH
[2019-10-26 07:46] LABS: BASOPHILS 0.3 % (0-2); EOSINOPHILS 12.9 % (0-7); HEMATOCRIT 25.5 % (42.0-54.0); IMMATURE GRANULOCYTES 1.1 % (0-5); MCH 28.3 pg (26.0-34.0); MCHC 31.4 g/dL (31.0-37.0); MCV 90.1 fL (80.0-100.0); MEAN PLATELET VOLUME 9.4 fL (7.4-10.4); MONOCYTES 7.9 % (2-11); NEUTROPHILS 69.8 % (40-80); PLATELET COUNT 379 10x3/uL (130-400); RBC 2.83 10x6/uL (4.20-6.10); RDW 15.2 % (11.5-14.5)
[2019-10-26 07:48] LABS: WBC 14.3 10x3/uL (4.8-10.8)
--- NOTE | 2019-10-26 07:52 | NUR ---
PT RESTING IN BED WITH EYES OPEN CALL LIGHT IN REACH WILL MONITER
[2019-10-26 08:04] VITALS: BP 137/66
[2019-10-26 08:04] LABS: ANION GAP 9.5 mmol/L (8-16); CALCIUM 8.1 mg/dL (8.5-10.1); CARBON DIOXIDE 30.2 mmol/L (21.0-32.0); CREATININE - SERUM 2.1 mg/dL (0.6-1.3); POTASSIUM - SERUM 3.7 mmol/L (3.5-5.1)
--- NOTE | 2019-10-26 10:00 | NUR ---
I have reviewed this patient and I concur with the Shift Assessment completed by the Licensed Practical Nurse today this shift.
[2019-10-26 13:50] VITALS: Ht 179.1 cm; Wt 106.1 kg
--- NOTE | 2019-10-26 16:05 | NUR ---
PATIENT ADMITTED TO REHAB FROM ACUTE FLOOR. DR. PÉREZ IS PATIENT PCP. DME AT HOME IS A CANE. WILL CONTINUE TO FOLLOW WITH PATIENT . DC PLANS ARE FOR PATIENT TO RETURN TO HIS HOME WITH FAMILY.
--- NOTE | 2019-10-26 16:30 | NUR ---
PT 1 UNIT PRBC STARTED PT TOLERATED WELL RECIVED PRE MEDS SIGNED CONSENTS
--- NOTE | 2019-10-26 18:50 | NUR ---
RECEIVED PT LYING IN BED AWAKE. ALERT AND ORIENTED X4. LEFT FOREARM IV INFUSING PRBC 125ML/HR. NO SIGNS OF ACUTE DISTRESS NOTED. VS STABLE. CONTINUES ON 2L VIA HF NC. DENIES ANY NEEDS OR PAIN. CALL LIGHT AND WATER WITHIN REACH. FALL PRECAUTIONS IN PLACE. CPOC
[2019-10-26 19:59] VITALS: BP 121/51
--- NOTE | 2019-10-26 23:51 | NUR ---
PT LYING IN BED ON LEFT SIDE EYES CLOSED RESTING. RR EVEN AND UNLABORED. CALL LIGHT WITHIN REACH. FALL PRECAUTIONS IN PLACE. CPOC
--- NOTE | 2019-10-27 01:20 | NUR ---
PT LYING IN BED ON LEFT SIDE EYES CLOSED RESTING. RR EVEN AND UNLABORED. CALL LIGHT WITHIN REACH. WILL CONTINUE TO MONITOR
--- NOTE | 2019-10-27 04:00 | NUR ---
ASSISTED PT WITH TRANSFER FROM BED TO W/C WITH SBA. PT STATES HE SLEPT TOO MUCH IN THE AFTERNOON AND IS NOW UNABLE TO SLEEP. PROVIDED COFFEE PER PT REQUESTS. FEET ELEVATED ON BED. W/C LOCKED, CALL LIGHT AND PERSONAL BELONGINGS IN REACH. DENIES ANY PAIN OR ANY OTHER NEEDS. WILL CONTINUE TO MONITOR
[2019-10-27 08:00] VITALS: BP 124/56
[2019-10-27 13:26] LABS: BASOPHILS 0.5 % (0-2); EOSINOPHILS 11.9 % (0-7); HEMATOCRIT 29.2 % (42.0-54.0); HEMOGLOBIN 9.1 g/dL (13.5-17.5); IMMATURE GRANULOCYTES 0.5 % (0-5); LYMPHOCYTES 11.6 % (15-50); MCH 28.3 pg (26.0-34.0); MCHC 31.2 g/dL (31.0-37.0); MCV 90.7 fL (80.0-100.0); MEAN PLATELET VOLUME 9.6 fL (7.4-10.4); MONOCYTES 7.6 % (2-11); NEUTROPHILS 67.9 % (40-80); PLATELET COUNT 331 10x3/uL (130-400); RBC 3.22 10x6/uL (4.20-6.10); RDW 15.1 % (11.5-14.5); WBC 13.3 10x3/uL (4.8-10.8)
[2019-10-27 13:53] LABS: % SATURATION 17 % (15-55); IRON 36 ug/dl (35-150); TOTAL IRON BIND CAPACITY 211 ug/dl (260-445); UNSAT IRON BIND CAPACITY 175 ug/dl (150-375)
--- NOTE | 2019-10-27 13:56 | NUR ---
CARE TEAM MEETING: PATIENT IS NEW TO UNIT AND WILL BE RA AT NEXT MEETING. WILL CONTINUE TO FOLLOW WITH PATIENT.
[2019-10-27 14:12] LABS: ANION GAP 12.1 mmol/L (8-16); CALCIUM 8.4 mg/dL (8.5-10.1); CARBON DIOXIDE 26.2 mmol/L (21.0-32.0); CREATININE - SERUM 2.4 mg/dL (0.6-1.3); MAGNESIUM - SERUM 2.2 mg/dL (1.8-2.4); PHOSPHOROUS 3.7 mg/dL (2.5-4.9)
[2019-10-27 14:16] LABS: POTASSIUM - SERUM 4.3 mmol/L (3.5-5.1)
--- NOTE | 2019-10-27 17:14 | RHP ---
PATIENT: ISIS VALE MEDICAL RECORD: [id number] ACCOUNT: [id number] LOCATION:[id number] : 43 ADMISSION DATE: 10/25/19 REHABILITATION HISTORY AND PHYSICAL EXAMINATION POST ADMISSION PHYSICIAN EXAMINATION ADMITTING DIAGNOSIS: Disuse myopathy. HISTORY OF PRESENT ILLNESS: The patient is a 74-year-old gentleman who was admitted to the CV ICU secondary to right carotid endarterectomy. He has been followed by Dr. Khan. The patient developed an acute onset of chest pain on 10/12/2019. His pain was relieved by nitropatch. He was found to have an elevated troponin. He was found to have a non-ST segment elevation PR and underwent a left heart catheterization with PTCA of his circ. His left ventricular function was 40%. The patient has been seen by cardiology. He has had worsening renal functions and developed acute renal failure and required hemodialysis, began to have some urinary output and his creatinine is resolving at this time. He has been followed by renal throughout his stay. The patient has had shortness of breath and pleural effusions. He had been receiving PT and OT and progressing slowly. He has also been on telemetry. He has got supplemental O2. The patient has been monitored closely for pain control, fingerstick blood sugars, his I's and O's. He has also been on anticoagulation therapy. He has got proximal muscle weakness, balance deficits, decreased activity tolerance, impaired mobility, decreased range of motion, decreased strength, gait disturbance, limited safety awareness, complexity, risk for falls, low endurance, unsteady gait and balance, fatigues easily and got inability to care for himself. These are all barriers to his discharge home. He was living at home with his , completely independent with ADLs and mobility prior to this. Currently set up for max assist with ADLs and mod assist for his mobility and uses supplemental oxygen with use of rolling walker. He would like to return home at his prior level of functioning. COMORBIDITIES: Include weakness, anemia, shock, leukocytosis, non-ST segment elevation PR. He has got a history of left heart catheterization and stent placement, coronary artery disease, got a history of pleural effusions. PAST MEDICAL HISTORY: Significant for neuropathy, got a history of diabetes, coronary artery disease, peripheral vascular disease, basal cell skin cancer. PAST SURGICAL HISTORY: Includes hernia surgery, knee surgery, carpal tunnel, cardiac stents, coronary artery bypass grafting. ALLERGIES: No known drug allergies. CURRENT MEDICATIONS: Include Floranex daily, he is on Neurontin 300 mg b.i.d., insulin 30 units at bedtime, Zithromax 500 mg every 24 hours, Rocephin 1 g every 24 hours, he is on Flomax 0.4 mg daily, he is on Plavix 75 mg daily, atorvastatin 20 mg daily, carvedilol 25 mg b.i.d., Ventolin updrafts as needed, he is on furosemide 40 mg b.i.d., he is on a sliding scale of Humulin R and he is on potassium 20 mEq at bedtime. HABITS: No alcohol or tobacco use. FAMILY HISTORY: Noncontributory. HISTORY AND PHYSICAL [id number] ISIS VALE SOCIAL HISTORY: The patient hopes to return back home and get back to his prior level of functioning. REVIEW OF SYSTEMS: GENERAL: Does complain of weakness and fatigue. HEENT: Denies cold, cough, or congestion. CARDIOVASCULAR: Denies any chest pain. PHYSICAL EXAMINATION: VITAL SIGNS: Stable, afebrile. GENERAL: A well-developed gentleman in no acute distress upon exam. HEENT: Normocephalic and atraumatic. Mucosa moist. NECK: Supple. No lymphadenopathy. LUNGS: Clear in upper fair. HEART: Regular rate and rhythm. No murmurs, rubs, or gallops. ABDOMEN: Soft, benign, and nondistended. Positive bowel sounds times 4. EXTREMITIES: No clubbing, cyanosis or edema. NEUROLOGIC: He does have noted weakness throughout the proximal muscles of his thighs, but also in his upper deltoid regions. LABORATORY DATA: White count 14.3, H&H of 8 and 25 and platelet count was 379. Sodium 137, potassium 3.7, BUN and creatinine of 68 and 2.1 and blood sugar was noted to be 165. ASSESSMENT: This is a 74-year-old gentleman admitted to the rehab with a working diagnosis of disuse myopathy secondary to recent carotid endarterectomy and non-ST segment elevation myocardial infarction. The patient has potential to make improvement. We instituted the following multidisciplinary therapies including, not limited to physical, occupational, respiratory, speech, nutritional services, prosthetics and orthotics. Given his complex medical condition and risks for more complications, rehabilitation services cannot be provided at a low level of care such as halfway facility. PLAN: 1. Admit to [facility] for inpatient therapy to include the following disciplines: A. Physical therapy to improve gait, all transfer skills and bed mobility to a modified independent level. B. Occupational therapy to improve activities of daily living. C. Case management to help with discharge planning and placement options. D. Nutrition to assist with nutritional needs. E. Rehabilitation nursing to assist in monitoring the patient's underlying medical conditions and to assist with any type of bowel or bladder management. 2. His current medications will be continued. I am going to go ahead and continue on some antibiotics. His x-ray did show possible infiltrates versus pulmonary edema and his white count has come down with ease. We will go ahead and see him again in the morning. We will watch his white count closely and treat appropriately. TRANSINT:[id number] Voice Confirmation ID: [id number] DOCUMENT ID: [id number] CAROLYN notes whether there has been none or any medical/functional change since admission: - No change since prescreen. HISTORY AND PHYSICAL [id number] ISIS VALE attests patient continues to be appropriate for IRF: - Continues to be appropriate. RANJIT BLOUNT MD at 1714 CC: [id number] DICTATION DATE: 10/26/19 1221 [employer]: 10/26/19 1424 ADM IN [facility] [address] [place] [address]
--- NOTE | 2019-10-27 19:18 | NUR ---
RECEIVED PT SITTING UP IN W/C. ALERT AND ORIENTED X4. DENIES ANY NEEDS OR PAIN. NO SIGNS OF ACUTE DISTRESS NOTED. CALL LIGHT AND WATER WITHIN REACH. FALL PRECAUTIONS IN PLACE. CONTINUES ON 2L VIA NC. WILL CONTINUE TO MONITOR. CPOC
[2019-10-27 21:41] VITALS: BP 127/44
--- NOTE | 2019-10-28 01:11 | NUR ---
PT LYING IN BED EYES CLOSED RESTING. RR EVEN AND UNLABORED. CALL LIGHT WITHIN REACH. FALL PRECAUTIONS IN PLACE. CPOC
--- NOTE | 2019-10-28 06:36 | NUR ---
PT SITTING UP IN BED AWAKE. RESPIRATORY AT BEDSIDE. DENIES ANY NEEDS OR PAIN. NO SIGNS OF ACUTE DISTRESS NOTED. CALL LIGHT WITHIN REACH. FALL PRECAUTIONS IN PLACE. CPOC
[2019-10-28 07:44] VITALS: BP 123/53
--- NOTE | 2019-10-28 09:13 | NUR ---
HE IS ALERT, TALKING. TOOK HIS MEDICATIONS WITHOUT ANY PROBLEMS. HE IS WEARING 2.5 L NC HIGH FLOW O2. HE HAS A BIPAP MACHINE AT THE BEDSIDE FOR BEDTIME AND PRN USE. THE CALL LIGHT IS WITHIN REACH.
--- NOTE | 2019-10-28 13:27 | NUR ---
Nutrition Follow-up: Diet: Renal ADA Soft Mech with Chopped Meats PO intake: ~77% average x last 9 meals (100% x last 3 meals). He reports that her appetite is up and down. States that his throat is feeling somewhat better Last BM: 10/28/19. Wt: 234# (10/26/19) Meds noted: MVI, lantus, lasix, SSI, K-dur Labs noted: POC Glu 140(H), K 4.3(WNL)- 10/27/19, PO4 3.7(WNL)- 10/27/19 Recommend: -MD to check new K and PO4 labs. If WNL, recommend liberalize diet to Diabetic, low sodium as most recent K and PO4 labs have been WNL. -RD following.
[2019-10-28 16:23] LABS: ANION GAP 13.1 mmol/L (8-16); CALCIUM 8.3 mg/dL (8.5-10.1); CARBON DIOXIDE 25.6 mmol/L (21.0-32.0); CREATININE - SERUM 2.2 mg/dL (0.6-1.3); POTASSIUM - SERUM 4.7 mmol/L (3.5-5.1)
--- NOTE | 2019-10-28 19:52 | NUR ---
POST VOID WAS 10 CC.
[2019-10-28 20:00] VITALS: BP 135/57
--- NOTE | 2019-10-28 20:00 | NUR ---
AWAKE AND ALERT. SITTING ON SIDE OF BED WITH RESPRIAITONS UNLABORED. O2/2L ON PER NASAL CANNULA. NO ACUTE DISTRESS NOTED. CALL LIGHT IN REACH. RIGHT FOREARM SALINE LOCK INTACT WITH NO SIGNS OF INFILTRATION.
--- NOTE | 2019-10-29 01:57 | NUR ---
DOZING RECLINER. O2/2L ON PER NASAL CANNULA. CALL LIGHT IN REACH.
--- NOTE | 2019-10-29 03:30 | NUR ---
CONTINUES SLEEPING IN RECLINER. NO DISTRESS NOTED.
--- NOTE | 2019-10-29 05:19 | NUR ---
QUIET HOURS. NO ACUTE CHANGES IN CONDITION THIS SHIFT. RESTING QUIETLY WITH NO DISTRESS NOTED.
--- NOTE | 2019-10-29 07:47 | NUR ---
PT RESTING IN BED WITH EYES OPEN CALL LIGHT IN REACH WILL MONITER
[2019-10-29 08:29] VITALS: BP 130/71
[2019-10-29 08:59] LABS: BASOPHILS 0.9 % (0-2); HEMATOCRIT 27.7 % (42.0-54.0); HEMOGLOBIN 8.7 g/dL (13.5-17.5); IMMATURE GRANULOCYTES 0.7 % (0-5); LYMPHOCYTES 15.1 % (15-50); MCH 28.3 pg (26.0-34.0); MCHC 31.4 g/dL (31.0-37.0); MCV 90.2 fL (80.0-100.0); MEAN PLATELET VOLUME 9.6 fL (7.4-10.4); MONOCYTES 10.5 % (2-11); NEUTROPHILS 62.8 % (40-80); PLATELET COUNT 295 10x3/uL (130-400); RBC 3.07 10x6/uL (4.20-6.10); RDW 15.2 % (11.5-14.5); WBC 10.1 10x3/uL (4.8-10.8)
[2019-10-29 09:46] LABS: ANION GAP 12.3 mmol/L (8-16); CALCIUM 8.1 mg/dL (8.5-10.1); CARBON DIOXIDE 25.2 mmol/L (21.0-32.0); CREATININE - SERUM 2.1 mg/dL (0.6-1.3); POTASSIUM - SERUM 4.5 mmol/L (3.5-5.1)
--- NOTE | 2019-10-29 18:13 | NUR ---
PT RESTING IN BED WITH EYES OPEN CALL LIGHT IN REACH NO PROBLEMS WILL MONITER
[2019-10-29 20:00] VITALS: BP 132/53; BP 140/70
--- NOTE | 2019-10-29 20:00 | NUR ---
AWAKE AND ALERT. SITTING IN CHAIR IN ROOM. O2/3L ON PER NASAL CANNULA. NO ACUTE DISTRESS NOTED. CALL LIGHT IN REACH.
--- NOTE | 2019-10-29 23:59 | NUR ---
RESTING IN BED WITH BIPAP ON. NO ACUTE DISTRESS NOTED. CALL LIGHT IN REACH.
--- NOTE | 2019-10-30 01:48 | NUR ---
BIPAP REMOVED AND O2/2L PLACED ON PER PATIENT'S INSISTANCE. NO DISTRESS NOTED.
--- NOTE | 2019-10-30 05:25 | NUR ---
AWAKE AND ALERT. SITTING IN RECLINER. HAD CXR THIS AM. HAS BEEN UP AND DOWN TO BATHROOM. O2/3L ON PER NASAL CANNULA. RIGHT FOREARM SALINE LOCK INTACT. NO ACUTE CHANGES IN CONDITION THIS SHIFT.
[2019-10-30 08:00] VITALS: BP 129/47
--- NOTE | 2019-10-30 19:00 | NUR ---
PT SITTING UP IN THE RECLINER. HE HAS IV IRON INFUSING TO HIS LEFT FOREARM. HE IS ON 2L. HE DENIES PAIN OR SHORTNESS OF BREATH WHILE SITTING BUT STATES HE GETS SHORT OF BREATH WHEN HE GETS UP TO GO TO THE BATHROOM. CALL LIGHT IS WITHIN REACH.
[2019-10-30 20:00] VITALS: BP 140/86
[2019-10-31 08:00] VITALS: BP 124/59
--- NOTE | 2019-10-31 08:00 | NUR ---
SHIFT ASSMT COMPLETED.
--- NOTE | 2019-10-31 19:10 | NUR ---
PATIENT SITTING UP IN A RECLINER. OXYGEN ON AT 3 L PER N/C. VOICES NO NEEDS AT THIS TIME.
[2019-10-31 20:00] VITALS: BP 129/46
--- NOTE | 2019-10-31 22:00 | NUR ---
RESPIRTORY THERAPIST IN PATIENTS ROOM. SETTING UP BI-PAP FOR PATIENT.
--- NOTE | 2019-11-01 03:26 | NUR ---
I have reviewed this patient and I concur with the Shift Assessment completed by the Licensed Practical Nurse today this shift.
[2019-11-01 07:16] LABS: BASOPHILS 1.6 % (0-2); EOSINOPHILS 3.8 % (0-7); HEMATOCRIT 27.8 % (42.0-54.0); HEMOGLOBIN 8.4 g/dL (13.5-17.5); IMMATURE GRANULOCYTES 0.1 % (0-5); LYMPHOCYTES 14.2 % (15-50); MCHC 30.2 g/dL (31.0-37.0); MCV 92.7 fL (80.0-100.0); MEAN PLATELET VOLUME 9.5 fL (7.4-10.4); MONOCYTES 12.6 % (2-11); NEUTROPHILS 67.7 % (40-80); PLATELET COUNT 311 10x3/uL (130-400); RDW 15.8 % (11.5-14.5); WBC 6.9 10x3/uL (4.8-10.8)
[2019-11-01 07:28] LABS: CALCIUM 8.5 mg/dL (8.5-10.1); CREATININE - SERUM 1.9 mg/dL (0.6-1.3)
[2019-11-01 08:00] VITALS: BP 141/57
--- NOTE | 2019-11-01 09:40 | NUR ---
PARTICIPATED IN THERAPY THIS AM. NO C/O PAIN. SITTING IN WC AT THIS TIME. CL IN REACH.
--- NOTE | 2019-11-01 11:08 | NUR ---
SITTING IN WC IN ROOM. IN ROOM.
--- NOTE | 2019-11-01 14:47 | NUR ---
SITTING IN WC IN ROOM. NO CHANGEIN ASSESSMENT.
--- NOTE | 2019-11-01 17:55 | NUR ---
SL LEAKING. DC'D WITH CATH INTACT. RESITED TO L THUMB AREA PER ICU NURSE.
--- NOTE | 2019-11-01 19:35 | NUR ---
PT UP IN CHAIR, IV IRON RUNNING, NO IMMEDIATE NEEDS NOTED, RESPIRATIONS EVEN/UNLABORED, USES CALL/LIGHT, PRECAUTIONS IN PLACE, FLUIDS/CALL LIGHT WITHIN REACH
[2019-11-01 23:14] VITALS: BP 132/56
--- NOTE | 2019-11-02 02:40 | NUR ---
PT ASLEEP, AROUSES EASILY TO VOICE, NO IMMEDIATE NEEDS NOTED, FALL PRECAUTIONS IN PLACE, RESPIRATIONS EVEN/UNLABORED, FLUIDS/CALL LIGHT WITHIN REACH
[2019-11-02 08:00] VITALS: BP 146/50
--- NOTE | 2019-11-02 08:00 | NUR ---
PT RESTING IN BED WITH EYES OPEN CALL LIGHT IN REACH WILL MONITER
--- NOTE | 2019-11-02 18:20 | NUR ---
PT RESTING IN BED WITH EYES OPEN CALL LIGHT IN REACH WILL MONITER
--- NOTE | 2019-11-02 19:39 | NUR ---
PT UP IN CHAIR, REQUESTED DIET [place] [facility], GIVEN, NO OTHER NEEDS NOTED, FALL PRECAUTIONS IN PLACE PLACE, RESPIRATIONS EVEN/UNLABORED, FLUIDS/CALL LIGHT WITHIN REACH
[2019-11-02 21:12] VITALS: BP 127/37
--- NOTE | 2019-11-03 01:17 | NUR ---
PT TOILETED,NO OTHER NEEDS NOTED, FALL PRECAUTIONS IN PLACE, RESPIRATIONS EVEN/UNLABORED, FLUIDS/CALL LIGHT WITHIN REACH
[2019-11-03 06:10] LABS: EOSINOPHILS 7.5 % (0-7); HEMATOCRIT 28.8 % (42.0-54.0); HEMOGLOBIN 8.7 g/dL (13.5-17.5); IMMATURE GRANULOCYTES 0.2 % (0-5); LYMPHOCYTES 22.4 % (15-50); MCH 28.1 pg (26.0-34.0); MCHC 30.2 g/dL (31.0-37.0); MCV 92.9 fL (80.0-100.0); MEAN PLATELET VOLUME 9.4 fL (7.4-10.4); MONOCYTES 11.7 % (2-11); NEUTROPHILS 56.2 % (40-80); PLATELET COUNT 298 10x3/uL (130-400); RDW 16.2 % (11.5-14.5)
[2019-11-03 06:18] LABS: ANION GAP 12.6 mmol/L (8-16); CALCIUM 8.4 mg/dL (8.5-10.1); CARBON DIOXIDE 28.1 mmol/L (21.0-32.0); CREATININE - SERUM 1.6 mg/dL (0.6-1.3); POTASSIUM - SERUM 3.7 mmol/L (3.5-5.1)
[2019-11-03 08:00] VITALS: BP 133/55
--- NOTE | 2019-11-03 12:00 | NUR ---
I have reviewed this patient and I concur with the Shift Assessment completed by the Licensed Practical Nurse today this shift.
--- NOTE | 2019-11-03 14:18 | NUR ---
Nutrition Follow-up: Diet: Renal ADA Mech Chop Meats PO intake: ~96% average x last 9 meals. States that his appetite is "fantastic!" He denies any needs from dietary at this time. Last BM: 11/03/19. Wt: 234# (10/26/19) Meds noted: bumex, MVI, lantus, SSI, k-dur Labs noted: BUN 36(H), Cr 1.6(H), GFR 45(L), Glu 80(WNL) Recommend liberate diet to diabetic, low sodium (mech/chopped meats) as K and PO4 have been WNL. RD following.
--- NOTE | 2019-11-03 14:57 | NUR ---
O2 SAT ROOM AIR AT REST 87 % , O2 AT 2 L PER NASAL CANNULA AT REST O2 SAT 95 % PATIENT DISCHARGING IN CHRONIC STABLE CONDITION.
--- NOTE | 2019-11-03 15:33 | NUR ---
CARE TEAM MEETING: PATIENT IS DOING WELL IN THERAPY AND WISHES TO DC IN AM. ORDER HAS BEEN FAXED TO [facility] FOR 02 NEEDS. WILL CONTINUE TO FOLLOW WITH PATIENT AND WILL ASSIST WITH DC NEEDS.
--- NOTE | 2019-11-03 18:23 | NUR ---
PT RESTING IN BED WITH EYES OPEN CALL LIGHT IN REACH WILL MONITER
--- NOTE | 2019-11-03 19:33 | NUR ---
PT UP IN CHAIR, NO IMMEDIATE NEEDS, NOTED, RESPIRATIONS EVEN/UNLABORED, FALL PRECAUTIONS IN PLACE, FLUIDS/CALL LIGHT WITHIN REACH, DOING BREATHING TREATMENT
[2019-11-03 20:47] VITALS: BP 135/50
[2019-11-04 08:00] VITALS: BP 119/55
[2019-11-04] MEDS ORDERED: PERFOROMIS20 MCG/21 UPD (08:10)
[2019-11-04] MEDS ORDERED: ALBUTEROL2.5 MG/3 M UPD (08:10)
[2019-11-04] MEDS ORDERED: BUMEX2 MG PO (08:10)
[2019-11-04] MEDS ORDERED: PULMICORT0.5 MG/21 UPD (08:11)
--- NOTE | 2019-11-04 12:09 | NUR ---
PATIENT DISCHARGING HOME WITH SPOUSE TODAY. [facility] WILL PROVIDE THERAPY AT HOME. [facility] WILL PROVIDE O2 AND NEBULIZER FOR PATIENT HOME USE.DR. PÉREZ 11/11/19 @ 9:45, DR. DHILLON 12/15/19 @ 11:15, OFFICE WILL CALL PATIENT WITH AN APPOINTMENT, ALSO TOLD PATIENT TO CALL OFFICE . ELVIA SIGNED, IMM SERVED AND EXPLAINED, ONE GIVEN TO PATIENT AND ONE FILED IN CHART. NO COMPARE DATA REVIEWED DUE TO CONTRACTS WITH INSURANCE. DC INSTRUCTIONS FAXED TO PCP, HOME HEALTH , PATIENT INSURANCE,( [facility], [employer] AUTH. # [id number], FAXED TO , WITH FAX CONFORMATION RECIEVED) AND REVIEWED WITH PATIENT AND SPOUSE.
== END 2019-11-04 12:52 | disposition home health service (06) | DRG 91 ==
LOC: D.REHAB 16:19
PROVIDERS: Internal Medicine; Internal Medicine Nephrology; ADMIT Emergency Medicine; ATTEND Emergency Medicine
DX: G72.89 Other specified myopathies (principal); I21.4 Non-ST elevation (NSTEMI) myocardial infarction; J18.9 Pneumonia, unspecified organism; J96.01 Acute respiratory failure with hypoxia; I50.21 Acute systolic (congestive) heart failure; R57.9 Shock, unspecified; N17.9 Acute kidney failure, unspecified; I13.0 Hypertensive heart and chronic kidney disease with heart failure and stage 1 through stage 4 chronic kidney disease, or unspecified chronic kidney disease; M62.81 Muscle weakness (generalized); R26.9 Unspecified abnormalities of gait and mobility; R53.83 Other fatigue; R53.1 Weakness; D64.9 Anemia, unspecified; I25.10 Atherosclerotic heart disease of native coronary artery without angina pectoris; N18.9 Chronic kidney disease, unspecified; E11.22 Type 2 diabetes mellitus with diabetic chronic kidney disease

== ENCOUNTER → 2020-04-20 12:31 | Outpatient (CLI) | payer MEDICARE ==
[2019-10-26 13:50] VITALS: BMI 33.1
[~2020-04-20 12:31] MED LIST changes: +ALBUTEROL2.5 MG/3 M UPD; +BUMEX2 MG PO; +PERFOROMIS20 MCG/21 UPD; +PULMICORT0.5 MG/21 UPD
== END | disposition home or self-care (01) ==
LOC: D.CT 12:31
PROVIDERS: ATTEND Internal Medicine Pulmonary Disease
DX: J98.4 Other disorders of lung (principal)